=== PATIENT | male | born 1940 | race Caucasian/White ===

== ENCOUNTER 2016-11-27 17:48 | Emergency (ER) | payer MEDICARE, OTHER ==
[~2016-11-27] VITALS: Ht 175.2 cm; Wt 90.7 kg
[~2016-11-27 17:48] MED LIST: ANTIVERT25 MG PO; MOTRIN800 MG PO; ROBAXIN750 MG PO
[2016-11-27 18:31] LABS: BASO % 0.2 % (0.0-1.0); EOS # 0.2 10*3/uL (0.0-0.4); HEMATOCRIT 37.2 % (42.0-52.0); HEMOGLOBIN 12.4 g/dl (14.0-18.0); LYMPH # 2.4 10*3/uL (1.3-4.4); LYMPH % 45.2 % (27.0-41.0); MEAN CELL VOLUME 92.3 fl (80.0-94.0); MEAN CORPUSCULAR HGB 30.8 pg (27.0-31.0); MEAN CORPUSCULAR HGB CONC 33.3 g/dl (33.0-37.0); MEAN PLATELET VOLUME 10.2 fl (9.6-12.3); MONO # 0.4 10*3/uL (0.1-1.0); MONO % 7.9 % (3.0-9.0); NEUT # 2.3 10*3/uL (2.3-7.9); NEUT % 43.5 % (47.0-73.0); PLATELET COUNT AUTOMATED 142 10*3/uL (130-400); RED BLOOD COUNT 4.03 10*6/uL (4.50-5.90); RED CELL DISTRI WIDTH 13.4 % (0-14.5); WHITE BLOOD COUNT 5.3 10*3/uL (4.8-10.8)
[2016-11-27 18:49] LABS: ALBUMIN 3.3 gm/dl (3.1-4.5); ALKALINE PHOSPHATASE 88 U/L (45-117); BUN 12 mg/dl (7-24); CHLORIDE 107 mmol/L (98-107); CREATININE 1.19 mg/dL (0.70-1.30); SGOT/AST 16 IU/L (3-35); SGPT/ALT 17 U/L (12-78); SODIUM 143 mmol/L (136-145); TOTAL PROTEIN 6.3 gm/dL (6.4-8.2)
[2016-11-27 18:52] LABS: ACETAMINOPHEN (TYLENOL) < 2.0 ug/ml (10-30); ETHYL ALCOHOL < 3.0 mg/dl (<3); TROPONIN I < 0.015 ng/ml (<0.045)
[2016-11-27 19:32] LABS: BILIRUBIN NEGATIVE (NEGATIVE); BLOOD NEGATIVE (NEGATIVE); CLARITY CLEAR (CLEAR); COLOR YELLOW (YELLOW); GLUCOSE NEGATIVE (NEGATIVE); KETONE NEGATIVE (NEGATIVE); LEUKO ESTERASE NEGATIVE (NEGATIVE); NITRITE NEGATIVE (NEGATIVE); SPECIFIC GRAVITY 1.025 (1.005-1.030); UROBILINOGEN 0.2 E.U./dl (0.2-1.0)
[2016-11-27 19:41] LABS: RBC 0-2 rbc/hpf (0-2); URINE AMPHETAMINES < 1000 (1000ng/ml); URINE BARBITURATES < 200 (200ng/ml); URINE BENZODIAZEPINES < 200 (200ng/ml); URINE CANNABINOIDS (THC) < 50 (50ng/ml); URINE COCAINE < 300 (300ng/ml); URINE METHADONE < 300 (300ng/ml); URINE OPIATES < 300 (300ng/ml); WBC 0-2 wbc/hpf (0-5)
[2016-11-27 19:42] LABS: URINE PHENCYCLIDINE < 25 (25ng/ml)
== END 2016-11-27 19:56 | disposition home or self-care (01) ==
LOC: ED 17:48
PROVIDERS: Nurse Practitioner Family
DX: Z00.8 Encounter for other general examination (principal); R41.82 Altered mental status, unspecified; Z91.040 Latex allergy status

== ENCOUNTER 2016-12-08 16:55 | Emergency (ER) | payer MEDICARE, OTHER ==
[2016-12-08 17:44] LABS: BASO % 0.4 % (0.0-1.0); EOS # 0.2 10*3/uL (0.0-0.4); EOS % 2.8 % (1.0-4.0); HEMATOCRIT 36.7 % (42.0-52.0); HEMOGLOBIN 12.5 g/dl (14.0-18.0); LYMPH # 2.4 10*3/uL (1.3-4.4); LYMPH % 41.9 % (27.0-41.0); MEAN CELL VOLUME 91.1 fl (80.0-94.0); MEAN CORPUSCULAR HGB CONC 34.1 g/dl (33.0-37.0); MEAN PLATELET VOLUME 10.2 fl (9.6-12.3); MONO # 0.6 10*3/uL (0.1-1.0); MONO % 10.6 % (3.0-9.0); NEUT # 2.5 10*3/uL (2.3-7.9); NEUT % 43.9 % (47.0-73.0); PLATELET COUNT AUTOMATED 159 10*3/uL (130-400); RED BLOOD COUNT 4.03 10*6/uL (4.50-5.90); RED CELL DISTRI WIDTH 13.4 % (0-14.5); WHITE BLOOD COUNT 5.7 10*3/uL (4.8-10.8)
[2016-12-08 17:57] LABS: ALBUMIN 3.5 gm/dl (3.1-4.5); CREATININE 1.45 mg/dL (0.70-1.30); POTASSIUM 4.3 mmol/L (3.5-5.1); TOTAL PROTEIN 6.2 gm/dL (6.4-8.2)
[2016-12-08 18:05] LABS: BILIRUBIN NEGATIVE (NEGATIVE); BLOOD NEGATIVE (NEGATIVE); CLARITY CLEAR (CLEAR); COLOR YELLOW (YELLOW); GLUCOSE NEGATIVE (NEGATIVE); KETONE NEGATIVE (NEGATIVE); LEUKO ESTERASE NEGATIVE (NEGATIVE); NITRITE NEGATIVE (NEGATIVE); SPECIFIC GRAVITY >= 1.030 (1.005-1.030)
[2016-12-08 18:18] LABS: BACTERIA TRACE; WBC 0-2 wbc/hpf (0-5)
[2016-12-08] MEDS ORDERED: Meclizine25 MG PO (22:30)
[2016-12-08] MEDS ORDERED: NEURONTIN300 MG PO (22:34)
[2016-12-08] MEDS ORDERED: LEVOTHYROXINE125 MCG PO (22:36)
[2016-12-08] MEDS ORDERED: CITALOPRAM40 MG PO (22:38)
[2016-12-08] MEDS ORDERED: NEXIUM20 M1 PO (22:41)
[2016-12-08] MEDS ORDERED: COLACE100 MG PO (22:42)
[2016-12-08] MEDS ORDERED: CENTRUM SILVER1 EACH PO (22:43)
[2016-12-08] MEDS ORDERED: TOPROL XL25 MG PO (22:44)
[2016-12-08] MEDS ORDERED: MIRALAX17 GM PO (22:45)
[2016-12-08] MEDS ORDERED: SIMVASTATIN20 MG PO (22:45)
[2016-12-08] MEDS ORDERED: ZANTAC 150150 MG PO (22:46)
[2016-12-08] MEDS ORDERED: BAYER ASPIRIN C81 MG PO (22:49)
[2016-12-08] MEDS ORDERED: ARICEPT5 M1 PO (22:50)
[2016-12-08] MEDS ORDERED: MYRBETRIQ50 M1 PO (22:51)
[2016-12-08] MEDS ORDERED: RANITIDINE HCL150 M1 PO (22:52)
[2016-12-08] MEDS ORDERED: FUROSEMIDE40 MG PO (22:53)
[2016-12-08] MEDS ORDERED: ALEVE220 M1 PO (22:56)
[2016-12-08] MEDS ORDERED: TYLENOL650 MG R (22:56)
== END 2016-12-08 22:24 | disposition home health service (06) ==
LOC: ED 16:55
PROVIDERS: Emergency Medicine
DX: R44.3 Hallucinations, unspecified (principal); F03.90 Unspecified dementia, unspecified severity, without behavioral disturbance, psychotic disturbance, mood disturbance, and anxiety

== ENCOUNTER 2016-12-08 21:44 | Inpatient (IN) | payer MEDICARE, OTHER ==
[~2016-12-08] VITALS: Ht 177.8 cm; Wt 114.7 kg
--- NOTE | ~2016-12-08 | PR ---
[place], [place] PROGRESS NOTE NAME: LAYLA ZALDIVAR UNIT #: [id number] ROOM: 312 DOCTOR: FEDE HOOK MD BIRTHDATE: [birth year] DOS: 12/11/2016 CHIEF COMPLAINT: "Did I tell you why I am here, it's all a misunderstanding." SUMMARY OF THE VISIT: The patient was interviewed as he was getting out of bed. He sat at the end of his bed and did start talking to me. He seemed perplexed and confused and did not seem to remember that he told me the entire story of why he was admitted and began to tell me the entire story once again. I did interrupt him and start talking to him about the here now and he did shift his focus rather quickly. He reports that he slept well and is feeling well and denies any issues other than wanting to be discharged today and return home with his . MENTAL STATUS: He is alert and oriented to person, place and only approximate to time. Mood seems relatively euthymic. Affect is appropriate. His responses tended to be short and simple. At times he deflected specific answer with humor. He does tend to confabulate. Short term memory remains poor and he at times has significant word finding difficulty and he processes the information rather slowly. PLAN: I will go ahead at this point in time and start augmenting the Exelon patch with Namenda. I will start Namenda at 5 mg a day, targeting 20 mg a day as my final dose. I will continue to engage him in individual and osuna milieu activity. We will discuss with social service agency director what options we have regarding placement and determine whether or not the feels that she can take him back home or if we need to explore possible placement into a long-term care facility or assisted living. FEDE HOOK MD CM:PNTRANS [phone] FEDE HOOK MD 12/11/16 1135 interface
--- NOTE | ~2016-12-08 | CON ---
[place], [place] REPORT OF CONSULTATION NAME: LAYLA ZALDIVAR UNIT #: [id number] ROOM: 312 DOCTOR: BEV STINSON ED.D (NATALI) BIRTHDATE: [birth year] DOS: 12/10/2016 HISTORY OF PRESENT ILLNESS: The patient is a 76-year-old male referred by Dr. Hook for competency evaluation. At the present time, this patient is on the [facility] Unit at [facility]. He is and his was present during the interview. This patient and his , between the two of them, have 8 children. He is a retired insurance underwriter. His family physician is Dr. Pizano and his medical history is pertinent for depression and dementia. His medications include Depakote, Neurontin, Antivert, Colace, metoprolol, Zocor, Exelon patch, and Synthroid. This patient denies any significant substance abuse issues. He was awake, alert and oriented to person only. He could not tell me where he was and he did not know the date. He was pleasantly confused throughout the interview. He had difficulty with most questions I asked him; however, he did not know that [place] is the president at this time. Otherwise, he had a great deal of difficulty communicating. Apparently, his cognitive status has been declining for quite some time and it is clear that he is not competent to make informed healthcare decisions and his , who is his healthcare power of family law attorney, should make all his decisions. DIAGNOSES: 1. Major depressive disorder, recurrent. 2. Mild neurocognitive disorder--Alzheimer's disease. RECOMMENDATIONS: All decisions should be made by his healthcare power of family law attorney who is his . Thank you very much for this consult. BEV STINSON ED.D CM:CONSTR:REPORT OF CONSULTATION 1711 12/11/16 0103 interface FEDE HOOK MD
--- NOTE | ~2016-12-08 | PR ---
[place], [place] PROGRESS NOTE NAME: LAYLA ZALDIVAR UNIT #: [id number] ROOM: 312 DOCTOR: FEDE HOOK MD BIRTHDATE: [birth year] DOS: 12/13/2016 CHIEF COMPLAINT: "My feet are ices cubes. I have no heat in my room." SUMMARY OF THE VISIT: The patient was interviewed as he sat at the dining table with multiple peers. He engaged readily in conversation, reporting to me that he is anxious to return home to his . He was fairly bright and pleasant and engaged readily in conversation. Much of it focused on his room being so cold and that he even asked for blankets and even this did not help. I did talk to him about staying one more day, so that we can further adjust his medications with the ultimate plan to return home and he nodded in agreement. He does report to me that his is visiting on a daily basis and states that the visits are going well. Nurses report no major behaviors with him and that he has been fairly compliant and pleasant and redirects. He continues to use ____ memory deficits. MENTAL STATUS: He is alert and oriented with some time gaps. Mood does seem to be fairly euthymic. Affect appropriate. There are no symptoms of hypomania or sylvester. There are no auditory or visual hallucinations. No delusions, no paranoia. At times, he does have word finding difficulty and some processing issues and short term memory has gaps. PLAN: I will go ahead and maintain Exelon patch at 9.5 mg a day, but increase Namenda from 5 mg daily to 5 mg b.i.d. to further augment the effectiveness of the cholinesterase inhibitor. Valproic acid level is barely subtherapeutic at ____. I see no side effects and I see no reason at this point in time to adjust his Depakote further as it does seem to be effective at this dose. We will continue to support and monitor, engage in individual and osuna milieu activity with the ultimate plan to return home with his when psychiatrically stable. FEDE HOOK MD CM:PNTRANS [id number] FEDE HOOK MD 12/13/16 1041 interface
--- NOTE | ~2016-12-08 | PR ---
[place], [place] PROGRESS NOTE NAME: LAYLA ZALDIVAR UNIT #: [id number] ROOM: 312 DOCTOR: FEDE HOOK MD BIRTHDATE: [birth year] DOS: 12/10/2016 CHIEF COMPLAINT: "My thinks I need to be locked up in the loony bin." SUMMARY OF THE VISIT: The patient was interviewed in the group therapy room. He recounted the story on how he came to be here and was totally perplexed and bewildered how this came to be. He is convinced that there were people attempting to take his car; a woman that looked like his , but was not his was in his house later when he left and returned, he stated that there was a whole bunch of people in his house. He was also convinced that his is coming today to talk to me and he plans to leave with her. He does tend to use humor a lot and confabulates to fill in gaps. MENTAL STATUS: He is alert and oriented to person, place, but not time. Mood does seem to be somewhat labile at times, but he redirects. There are no auditory or visual hallucinations. No delusions, no paranoia. Short term memory is very poor. PLAN: I will go ahead and increase his Exelon patch from 4.6 to 9.5 mg a day. I will plan to augment this ultimately with Namenda to try to get maximum benefit. I will put a consult in to Dr. Quinton Sultana, psychologist, regarding competency and we will have to discuss this with treatment team and social worker clinical to see if the wants to proceed with some type of placement given the fact that he was found wandering around his house and neighborhood; he could be representing a substantial safety risk. FEDE HOOK MD CM:PNTRANS [phone] FEDE HOOK MD 12/10/16 235 interface
--- NOTE | ~2016-12-08 | PR ---
[place], [place] PROGRESS NOTE NAME: LAYLA ZALDIVAR UNIT #: [id number] ROOM: 312 DOCTOR: FEDE HOOK MD BIRTHDATE: [birth year] DOS: 12/12/2016 CHIEF COMPLAINT: "Hey, do I get to go home soon." SUMMARY OF THE VISIT: The patient was interviewed after he had finished breakfast and was walking down the todd to his room. He engaged readily in conversation. He was fairly bright and pleasant. He continues to use humor to fill in the gaps and he does confabulate. He is, however, pleasant and redirectable. Dr. Sultana's consult was noted and Dr. Sultana feels that he is presently exhibiting enough cognitive decline that he can no longer make informed decisions himself. MENTAL STATUS: He is alert and oriented to person, place, but not necessarily time. Mood does seem to be fairly euthymic. Affect appropriate. There are no symptoms of hypomania or sylvester. There are no overt auditory or visual hallucinations. No delusions or paranoia were voiced. He does have significant processing difficulties as well as significant word finding problems. Short term memory has significant gaps. PLAN: His valproic acid level is slightly out of therapeutic range at 43.9; however, he is tolerating it well and it does seem to have stabilized his mood. Nurses do report that he has complained of some upset stomach which could be because of the rapid titration in the Exelon patch. At this point, I will maintain Exelon patch at 9.5 mg daily as well as maintaining Namenda at 5 mg a day. We will discuss with his options that she must take to make the house safe for his ultimate return there. We will continue to engage him in individual and osuna milieu activity with the ultimate plan to discharge to the least restrictive environment when psychiatrically stable. FEDE HOOK MD CM:PNTRANS [id number] FEDE HOOK MD 12/12/16 1510 interface
--- NOTE | ~2016-12-08 | DS ---
[place], [place] DISCHARGE SUMMARY NAME: LAYLA ZALDIVAR UNIT #: [id number] ROOM: 312 DOCTOR: FEDE HOOK MD BIRTHDATE: [birth year] DOS: 12/14/2016 CHIEF COMPLAINT: "I am doing just fine I do not need to be in the loony bin, do you." HISTORY OF PRESENT ILLNESS: This is a 76-year-old male who was brought to the Emergency Room at [facility] by EMS due to increased confusion and combative behavior at home. The patient had been seeing people in his home that were not there. He became increasingly agitated and aggressive and was making threats to his family. His was fearful of her safety and did call EMS who brought him subsequently to the Emergency Room for evaluation. He had been to the Emergency Room earlier in the month for similar behavior. At that time, though the did not want him admitted, but at this point, felt that his behavior has been continuing to decompensate and escalate and felt that he needed to be evaluated for his worsening confusion and agitation. He is admitted now to rule out organic factors, to stabilize on medication and then to determine the least restrictive environment to which he should be discharged to. PAST MEDICAL HISTORY: Remarkable for hypertension, GERD, hypothyroidism, neuropathy, prostate cancer, urge incontinence and dementia. SUMMARY OF HOSPITAL COURSE: The patient was admitted to the unit where he was found to be grossly confused, but pleasant. Because of his cognitive decline he was started on Exelon patch 4.6 mg a day and the dose was gradually increased during his stay to a maximum of 9.5 mg daily. He tolerated the Exelon well without any apparent side effects. Toward the latter part of his stay, Namenda 5 mg a day was added and it was brought up to a dose of 5 mg twice a day without any side effects. This was utilized to augment the effectiveness of the Exelon because he had some significant agitation while at home, he was started on Depakote 250 mg twice daily and 500 mg at nighttime. This did seem to impact positively on his mood lability. Nurses noted that he had periods of increased confusion and needed to be redirected; however, he had no physical aggression or agitation since the initiation of the Depakote. A Depakote level obtained on December 12 was low, but relatively close to therapeutic at 43.9. He tolerated the combination of the Depakote, the Exelon patch and the Namenda well. His strongly voiced an opinion that she did want him home at this point in time and efforts were made to educate her as to what measures she needed to undertake in order to make it a safe environment for him upon his return home. He had improved sufficiently by December 14 to return home. He was tolerating the medication regimen well without any apparent side effects. MENTAL STATUS AT DISCHARGE: The patient is alert and oriented to person, place, and approximate to time. He did have significant time gaps and he tends to use humor and confabulation to cover up his cognitive loss. He was pleasant and bright however, and exhibited no agitation or aggression. There is no hypomania or sylvester. There were no overt auditory or visual hallucinations. Short term memory had gaps, otherwise he was intact. FINAL DIAGNOSES: Impulse control disorder, not otherwise specified, and Alzheimer's dementia. [place], [place] DISCHARGE SUMMARY NAME: LAYLA ZALDIVAR UNIT #: [id number] ROOM: 312 DOCTOR: FEDE HOOK MD BIRTHDATE: [birth year] PLAN: All of his prescriptions have been e-scribed to [facility]. He will be followed up in our office post-discharge. FEDE HOOK MD CM:ESVIN [id number] FEDE HOOK MD 12/14/16 1001 interface
[2016-12-08 21:59] VITALS: BP 119/69
--- NOTE | 2016-12-08 22:00 | NUR ---
ZENLAYLA a 76 year old M admitted via wheel chair from the EMERGENCY ROOM as a emergency 72 hr. hold admission. Arrived on unit at 2200. ALLERGIES: ROBAXIN. Vital signs are: 97.6-60-17 119/69. The client DID NOT SIGN THE FOLLOWING FORM DUE TO PINK SLIP AND LIMITED COGNITION signed the following forms with stated understanding: Authorization For The Release of Medical Information, Clothing List, Consent to Voluntary Admission and Hospitalization, Consent and Release Forms/Receipt of Rights, Acknowledgement of Advance Directive Information, Behavioral Health Consent Form, and Informed Consent of Medications. Admitted under the services of Dr. MONSTER MCNAMARA,[facility]. A search was conducted and hazardous articles were removed. Client was oriented to the unit. MARK CHA CLIENT ESCORTED TO UNIT VIA WHEEL CHAIR WITH ASSISTANCE OF [facility] NURSE AND SECURITY
[2016-12-08] MEDS ORDERED: Meclizine25 MG PO (22:30)
[2016-12-08] MEDS ORDERED: NEURONTIN300 MG PO (22:34)
[2016-12-08] MEDS ORDERED: LEVOTHYROXINE125 MCG PO (22:36)
[2016-12-08] MEDS ORDERED: CITALOPRAM40 MG PO (22:38)
[2016-12-08] MEDS ORDERED: NEXIUM20 M1 PO (22:41)
[2016-12-08] MEDS ORDERED: COLACE100 MG PO (22:42)
[2016-12-08] MEDS ORDERED: CENTRUM SILVER1 EACH PO (22:43)
[2016-12-08] MEDS ORDERED: TOPROL XL25 MG PO (22:44)
[2016-12-08] MEDS ORDERED: SIMVASTATIN20 MG PO (22:45)
[2016-12-08] MEDS ORDERED: MIRALAX17 GM PO (22:45)
[2016-12-08] MEDS ORDERED: ZANTAC 150150 MG PO (22:46)
[2016-12-08] MEDS ORDERED: BAYER ASPIRIN C81 MG PO (22:49)
[2016-12-08] MEDS ORDERED: ARICEPT5 M1 PO (22:50)
[2016-12-08] MEDS ORDERED: MYRBETRIQ50 M1 PO (22:51)
[2016-12-08] MEDS ORDERED: RANITIDINE HCL150 M1 PO (22:52)
[2016-12-08] MEDS ORDERED: FUROSEMIDE40 MG PO (22:53)
[2016-12-08] MEDS ORDERED: ALEVE220 M1 PO (22:56)
[2016-12-08] MEDS ORDERED: TYLENOL650 MG R (22:56)
--- NOTE | 2016-12-08 23:35 | NUR ---
DR. OLEARY MADE AWARE OF CONSULT FOR MEDICAL MANAGMENT INSTRUCTED TO PLACE CONSULT UNDER GERRI SIMMS. MED REC COMPLETE AND MEDICAL HX COMPLETED
--- NOTE | 2016-12-09 06:55 | NUR ---
PT SLEPT WITH ONLY INTURRUPTION FOR HYGIENE CARE. ALERT TO PERSON ONLY. LOUD SPEECH YELLING OUT "HO HO HO!!" WHEN ASKED IF HE KNEW WHERE HE IS HE STATES " [place]" NON SENSICLE SPEECH, FOI. SLEPT 5 HOURS
[2016-12-09 06:58] LABS: CHOLESTEROL 120 mg/dL (<200); HDL CHOLESTEROL 55 mg/dl (40-60); LDL CHOLESTEROL 53 mg/dL (9-159); TRIGLYCERIDES 59 mg/dl (<150); VLDL CHOLESTEROL 12 mg/dL (6-40)
[2016-12-09 07:19] LABS: VITAMIN D, 25-HYDROXY 36.9 ng/mL (30-100)
[2016-12-09 08:07] VITALS: BP 151/80
--- NOTE | 2016-12-09 09:18 | NUR ---
DR. JACI SR IN RT AC
--- NOTE | 2016-12-09 09:19 | NUR ---
DR MADRID UP TO SEE PATIENT
--- NOTE | 2016-12-09 09:58 | NUR ---
haresh wray'ara
[2016-12-09 10:00] LABS: BASO % 0.2 % (0.0-1.0); EOS # 0.2 10*3/uL (0.0-0.4); EOS % 3.8 % (1.0-4.0); HEMATOCRIT 34.7 % (42.0-52.0); HEMOGLOBIN 11.7 g/dl (14.0-18.0); LYMPH # 2.1 10*3/uL (1.3-4.4); LYMPH % 42.9 % (27.0-41.0); MEAN CORPUSCULAR HGB CONC 33.7 g/dl (33.0-37.0); MEAN PLATELET VOLUME 11.2 fl (9.6-12.3); MONO # 0.6 10*3/uL (0.1-1.0); MONO % 11.4 % (3.0-9.0); NEUT # 2.1 10*3/uL (2.3-7.9); NEUT % 41.5 % (47.0-73.0); PLATELET COUNT AUTOMATED 138 10*3/uL (130-400); RED BLOOD COUNT 3.77 10*6/uL (4.50-5.90); RED CELL DISTRI WIDTH 13.5 % (0-14.5)
[2016-12-09 10:11] LABS: ALKALINE PHOSPHATASE 78 U/L (45-117); BUN 15 mg/dl (7-24); CHLORIDE 109 mmol/L (98-107); POTASSIUM 4.3 mmol/L (3.5-5.1); SGOT/AST 14 IU/L (3-35); SGPT/ALT 17 U/L (12-78); SODIUM 145 mmol/L (136-145); TOTAL PROTEIN 5.7 gm/dL (6.4-8.2)
[2016-12-09 21:16] VITALS: BP 144/76
--- NOTE | 2016-12-09 23:07 | NUR ---
24 HR chart check completed.
--- NOTE | 2016-12-10 06:12 | NUR ---
PT HAS BEEN OBSERVED ON Q 15 MIN CHECKS & HAS SLEPT QUIETLY THROUGHOUT THE SHIFT PAST 2129.
[2016-12-10 09:38] VITALS: BP 148/79
--- NOTE | 2016-12-10 10:31 | NUR ---
'S OFFICE NOTIFIFED OF COMPETNACY EVAL NEEDED.
--- NOTE | 2016-12-10 13:47 | NUR ---
Socializing This is saturday with new patients. I like to talk with them to find out about them such as their like, dislikes,pets or children etc.. This patient did attend group this morning as well as participated. Patient likes to joke and has a sense of humor. patient tend to "joke" constantly rarely being serious
--- NOTE | 2016-12-10 15:59 | NUR ---
MARIA ISABEL completed psychosocial assessment with Vi and Pt. Vi wants Pt to return home with her. Vi may be interested in some services at home. Pt will follow up with Dr. Pizano [facility].
[2016-12-10 20:00] VITALS: BP 123/64
--- NOTE | 2016-12-10 23:22 | NUR ---
MEDICATION COMPLIANT. REFUSED SOCIALIZATION , INTERACTION AND SNACK. WAS VERY UPSET WITH MALE PEER THAT CONTINUALLY YELLED OUT. HE THREATENED TO GO "PUNCH HIM IN THE MOUTH TO SHUT HIM UP" REDIRECTED CLIENT THAT IT WAS NOT APPROPRIATE TO SAY THAT AND THAT WE ARE TRYING TO KEEP CLIENT QUIET. EMOTIONAL SUPPORT PROVIDED
--- NOTE | 2016-12-11 04:01 | NUR ---
24 HR chart check completed.
--- NOTE | 2016-12-11 04:26 | NUR ---
B:AGGRESSION I: THERAPEUTIC COMMUNICATION, 1:1 R: I'M NOT UPSET RIGHT NOW P: MEDICATION COMPLIANCE, PARTICIPATE IN GROUP, IDENTIFY COPING SKILLS FOR AGGRESSIVE BEHAVIOR
--- NOTE | 2016-12-11 07:58 | NUR ---
BINGO A social game everyone enjoys while they laugh joke and use their sana to think and focus. Patient did attend group as well as participated. Patient is very humorous,constantly joking with staff as well as other patients. Patient was appropriate in his joking.
[2016-12-11 08:49] VITALS: BP 145/83
--- NOTE | 2016-12-11 09:32 | NUR ---
PATIENT ATE 100% OF BREAKFAST. MEDICATION COMPLIANT WITHOUT DIFFICULTY WITH AM MEDS. BIZARRE BEHAVIORS NOTED WHILE WAITING FOR BREAKFAST. PT MAKING BIZARRE NOISES AND ASKING INAPPROPRIATE QUESTIONS TO FEMALE STAFF. RE-ORIENTED AND BOUNDRIES SET WITH MINIMAL EFFECT FOR SHORT PERIOD OF TIME. PT IS CONFUSED WITH ST/LT MEMORY DEFICITS. UNABLE TO VERBALIZE WHAT YEAR IT IS, WHERE HE IS, OR WHAT BROUGHT HIM TO THE HOSPITAL. WORD FINDING DIFFICULTY OBSERVED DURING INTERACTIONS WITH PATIENT.
--- NOTE | 2016-12-11 13:30 | NUR ---
/POA IN AT THIS TIME AND SIGNED ALL ADMISSION PAPERWORK INCLUDING VOLUNTARY ADMISSION.
--- NOTE | 2016-12-11 16:19 | NUR ---
DR. PEÑA AND DR. VIGIL ON UNIT TO SEE PT AT THIS TIME. MADE AWARE PT RECENTLY MEDICATED WITH PRN MAALOX FOR C/O ACID REFLUX WITH POSITIVE EFFECT.
--- NOTE | 2016-12-11 16:38 | NUR ---
Exercise/Trivia-morning group Bingo-Afternoon grou Morning group helps with keeping the patient active and joints mobile/trivia helps patient socializing, thinking,and focusing Afternoon group of BINGO helps with socializing, thinking,focusing and self esteem This patient did attend groups as well as participated but patient did say a few inapropriate things during group and had to be reminded that patients can not say inappropriate things and if he did not stop he would be leaving the room. patient acted as if i was joking a few times but stopeed being inappropriate by falling asleep. Patient did attend afternoon group and did speak loudly but never inappropriatly. Patient encouraged other patients and voiced excitment for a BINGO but then realized he didnt get itand was very apologetic for "messing up"
--- NOTE | 2016-12-11 18:13 | NUR ---
Liz brought in the Living Will for SW to copy. Copy on the chart.
--- NOTE | 2016-12-11 18:45 | NUR ---
PATIENT IS ALERT AND ORIENTED TO SELF ONLY. PLEASANTLY CONFUSED WITH PERIODS OF ACUTE CONFUSION NOTED THIS SHIFT. ST/LT MEMORY GAPS PRESENT. NO HALLUCINATIONS OR DELUSIONS NOTED. NO ELOPEMENT ATTEMPTS MADE. NO COMBATIVE BEHAVIORS NOTED. PATIENT HAS BEEN OBSERVED WITH BIZARRE BEHAVIORS NOTED THROUGHOUT THE DAY. INAPPROPRIATE WITH STAFF WITH PERSON INFORMATION. WORD FINDING DIFFICULTY PRESENT, PT TENDS TO TRY AND COVER UP HIS CONFUSION WITH JOKING. REORIENTED FREQUENTLY THROUGHOUT THE DAY, MINIMALLY TO MODERATELY EFFECTIVE FOR SHORT PERIODS OF TIME. HAS BEEN OBSERVED MAKING BIZARRE NOISES AND VOICES IN THE DAY ROOM, UNABLE TO TELL IF HE IS TRYING TO "JOKE" WITH HIS PEERS. OTHERWISE, PT HAS BEEN CALM AND COOPERATIVE, ATTENDING AND PARTICIPATING IN GROUP THERAPY. MODERATE INTERACTIONS WITH PEERS, SOME APPROPRIATE CONVERSATIONS NOTED. MEDICATION COMPLIANT WITHOUT DIFFICULTY. REQUIRES PROMPTING AND QUEING FOR ADLS AND SHOWERING. PT TOOK A SHOWER THIS SHIFT AND SHAVED WITH ASSIST OF MALE STAFF. APPETITE GOOD FOR MEALS. TAKING FLUIDS WELL. HAS BEEN TO ALL VISITING HOURS THIS SHIFT FOR PLEASANT AND SUPPORTIVE VISITS. AMBULATES INDEPENDENTLY WITH SLOW AND STEADY GAIT. CONTINENT OF B&B WITH BATHROOM PRIVILEGES.
[2016-12-11 20:59] VITALS: BP 150/79
--- NOTE | 2016-12-11 21:20 | NUR ---
PATIENT UPSET WHEN THIS NURSE WENT INTO ROOM ABOUT INCONTINENCE EPISODE IN THE BATHROOM. PATIENT CLEANED UP AND LINEN ADDED WITH LAUNDRY. PATIENT REPEATING THAT HE FELT LIKE A [age] YEAR OLD. THIS NURSE ABLE TO REDIRECT PATIENT AND SIT WITH HIM 1:1. PATIENT ABLE TO LAY IN BED AND REST AT THIS TIME
--- NOTE | 2016-12-12 02:29 | NUR ---
24 HR chart check completed.
--- NOTE | 2016-12-12 05:22 | NUR ---
B: ANXIETY I: THERAPEUTIC COMMUNICATION, 1:1 R: I HOPE I DO NOT GO ON MYSELF AGAIN, I FEEL LIKE A 1 YEAR OLD P: MEDICATION COMPLIANCE, IDENTIFY COPING SKILLS TO DECREASE ANXIETY, PARTICIPATE IN GROUP ACTIVITIES
--- NOTE | 2016-12-12 05:45 | NUR ---
Q 15 MINUTE CHECKS MAINTAINED. PATIENT SLEPT > 7 HOURS THIS SHIFT
[2016-12-12 08:16] VITALS: BP 138/68
--- NOTE | 2016-12-12 15:16 | NUR ---
PT C/O HEADACHE, PT GIVEN TYLENOL 650 MG PO PRN.
--- NOTE | 2016-12-12 15:30 | NUR ---
PT ALERT TO PERSON. PT MED COMPLIANT WITHOUT DIFFICULTY, MED EDUCATION PROVIDED. PT EXHIBITS SHORT TERM/GLUTEN SETTLING TENDER MEMORY DEFICITS. PT MOOD IS DEPRESSED, PT ISOALTIVE TO ROOM AT TIMES. PT GOAL DIRECTED TOWARDS GOING HOME, STATING "THIS IS NOT MY HOME, I JUST WANT TO GET OUT OF HERE, I DON'T WANT TO BE HERE FOREVER." EDUCATED PT ON DISCHARGE PROCESS. PT ENCOURAGED TO PARTICIPATE IN GROUPS/ACTIVITIES. PT DENIES ANY HALLUCINATIONS OR DELUSIONS, NO OVERT S/S NOTED. PT ENCOURAGED TO VOICE ANY HALLUCINATIONS TO STAFF. PT DENIES ANY HOMICIDAL/SUICIDAL THOUGHTS. PT AMBULATORY THROUGOUT UNIT, GAIT STEADY. PT CONTINENT OF BOWEL AND BLADDER. PLAN IS TO ENCOURAGE PT TO PARTICIPATE IN GROUPS/ACTIVITIES, ENCOURAGE PT TO VOICE ANY HALLUCINATIONS OR DELUSIONS TO STAFF.
--- NOTE | 2016-12-12 16:00 | NUR ---
NO FURTHER C/O HEADACHE NOTED.
[2016-12-12] MEDS ORDERED: ELOCON 0.1% CRE15 GM T (18:14)
--- NOTE | 2016-12-12 18:18 | NUR ---
CONTACTED AT [phone] REGARDING PT BRINGING IN MEDICATION FROM HOME FOR REDDENED AREAS ON PTS FACE. PER UPDATE MED REC AND HE WILL TAKE A LOOK AT IT.
[2016-12-12 20:11] VITALS: BP 118/67
--- NOTE | 2016-12-12 22:00 | NUR ---
DAUGHTER, JOCELYN CALLED FROM [place]. PATIENT HUGGING NURSING STAFF AFTER CONVERSATION WITH DAUGHTER AND APPRECIATIVE OF CARE HE IS RECEIVING. PATIENT SEEKING TO FIND WORDS TO HAVE A CONVERSATION AND CONTINUES TO COVER UP CONFUSION WITH HUMOR. MEDICATION COMPLIANT.
--- NOTE | 2016-12-13 03:02 | NUR ---
B: DEPRESSION I: THERAPEUTIC COMMUNICATION, 1:1 R: I JUST DON'T WANT TO COME OUT OF MY ROOM RIGHT NOW. I WANT TO GO HOME SOON P: MEDICATION COMPLIANCE, COPING SKILLS TO DECREASE DEPRESSIVE EPISODES, PARTICIPATE IN GROUP ACTIVITIES
--- NOTE | 2016-12-13 05:17 | NUR ---
24 HR chart check completed.
--- NOTE | 2016-12-13 05:53 | NUR ---
Q 15 MINUTE SAFETY CHECKS MAINTAINED. SLEPT >8 HRS THROUGHOUT SHIFT
--- NOTE | 2016-12-13 07:52 | NUR ---
Exercise/Letter to yourself-morning group. Helps with self esteem,coping skills creativity while decorating card and focusing. BINGO-Afternoon group.Helps with socializing,self esteem, focusing and team work. Patient was in attendence for the exercise portion of group and did very well focusing and following direction but often would speak out joking about the exercise and would be asked to not do this and patient would comply. Patient did not stay for the letter writting portion of group insisting he had a very bad headache and needed to lay down. Patient did attend afternoon BINGO group and did very well today focusing and staying on task. about half way through group patient stated he needed to use the bathroom and stated he would be back when asked by this staff member. Patient requested another patient watch his card,2 patients complied. This patient did not return to group
[2016-12-13 07:55] VITALS: BP 138/86
--- NOTE | 2016-12-13 10:42 | NUR ---
PT IS ALERT AND ORIENTED TO PERSON ONLY, APPEARS TO BE CONFUSED IN ALL OTHER AREAS, PT DEFLECTS ORIENTATION TYPE QUESTIONS WITH HUMOR AN APPARENT ATTEMPT TO COVER HIS STATE OF CONFUSION. WHEN ASKED WHERE HE WAS BY THIS NURSE, PT STATES "WELL, I BELIEVE [place]" FOLLOWED BY LAUGHTER. ST/LT MEMORY GAPS NOTED. RESPIRATIONS EASY ON ROOM AIR. MOOD IS STABLE, AFFECT IS BROAD RANGE, ANIMATED AT TIMES. SPEECH IS WNL AND COHERENT, SOME WORD FINDING DIFFICULTY NOTED AT TIMES, BUT ABLE TO MAKE NEEDS KNOWN TO STAFF. PT DENIES HALLUCINATIONS, NO RESPONSE TO INTERNAL STIMULI NOTED. PT DENIES SI/HI. NO PARANOIA/DELUSIONS NOTED. MEDICATION COMPLIANT WITHOUT DIFFICULTY. AMBULATORY WITH STEADY GAIT, FALL PRECAUTIONS MAINTAINED, STAFF REMINDED PT TO ASK FOR ASSISTANCE WHEN NEEDED FOR TRANSFERS/TOLIETING. BED ALARM ACTIVATED AND AUDIBLE. PT ISOLATIVE TO ROOM THIS AM. INDEPENDENT WITH ADLS WITH STAFF STANDBY FOR SAFETY. CONTINENT OF BOWEL AND BLADDER. DISPLAYS GOOD APPETITE WITH ADEQUATE FLUID INTAKE. NO DISTRESS NOTED. Q15 MIN SAFETY CHECKS MAINTAINED, REFER TO [facility] FLOWSHEET FOR SPECIFIC MONITORING.
--- NOTE | 2016-12-13 10:53 | NUR ---
PHYSICAL THERAPY PAtient in group at this time. Thank you for this referral. Mahsa Person,PT
--- NOTE | 2016-12-13 10:58 | NUR ---
Occupational Therapy evaluation completed this date on 3 with full eval to follow. Precautions include 3N, bed alarm,impaired cognition; needing frequent repetition and odd sense of humor, low complexity level 89401. Recommend no further OT at this time and home with 24 hr supervision and occasional assist. Thank you for this referral. Jennifer Houser OTR/L
--- NOTE | 2016-12-13 11:13 | NUR ---
Occupational Therapy evaluation completed this date on with full eval to follow. Precautions include bed alarm, 3N-pink slipped, impaired cognition including disorientation to time, place and need for frequent repetition to follow simple commands, low complexity level [id number]. Recommend home with 24 hr supervision and occasional min assist. No further OT indicated at this time. If 24 hr not available then recommend halfway placement. Thank you for this referral. Jennifer Houser OTR/l
--- NOTE | 2016-12-13 11:15 | NUR ---
PHYSICAL THERAPY PAtient evaluated on 3, full evaluation to follow. Continue with PT as per plan of care with fall and decreased safety awareness precautions. PAtient is moderate complexity via chart review, tests and evaluation: [id number]. Home with as prior 15/10 and home health RN and PT prn. Thank you for this referral. Mahsa Person,PT
--- NOTE | 2016-12-13 16:51 | NUR ---
SHIFT CHART CHECK COMPLETED.
[2016-12-13 19:40] VITALS: BP 135/73
--- NOTE | 2016-12-13 21:14 | NUR ---
LOTION APPLIED TO FACE PER ORDERS
--- NOTE | 2016-12-13 23:00 | NUR ---
RESTING BETTER SINCE BEING GIVEN MYLANTA FOR UPSET STOMACH. CLIENT HAD COME TO DESK AT 2200 FEELING NAUSEATED. MYLANTA GIVEN BY Niurka HER RN.
--- NOTE | 2016-12-14 05:21 | NUR ---
MYLANTA EFFECTIVE FOR NAUSEA. NO CHANGE IN REDNESS ON FACE AFTER 1ST DOSE OF LOTION. SLEPT WELL PAST 11PM. NOISY PEER DISRUPTED HIS SLEEP EARLIER. P- PSYCHOSIS I- LEARN NEW COPING SKILLS, TEACH IMPORTANCE OF MEDICATION P- NO HALLUCINATIONS, USE NEW COPING SKILLS LEARNED. MEDICATION COMPLIANT 24 HR chart check completed.
[2016-12-14 07:58] VITALS: BP 117/71
--- NOTE | 2016-12-14 08:02 | NUR ---
PHYSICAL THERAPY Maury seen this AM 1:1 and having decreased safety awareness and just talking out this AM visit. With much verbal cueing for everything. Transfer sit/stand, standing balance MOD A X 1. Followed by gait total 210' X 1, stop/start gait, using the todd handrail and MOD CELL ROOM OPERATOR X 1, cueing for gait safety and Pt's turns. Pt back up in the day room for his breakfast, treatment time 17 min. LEAH HENRY FUNDRAISING COORDINATOR.
--- NOTE | 2016-12-14 08:07 | NUR ---
Seasons/Reminiscing-Afternoon (12/13/16) This group will help parients with memory, thinking, concentration, and socializing This patient continues to refuse to come to group. Patient encouraged x2 to join but refuses. Patient wanted to sleep. Reminded Patient of the benefits of coming to groups but patient still refused
--- NOTE | 2016-12-14 08:35 | NUR ---
TREATMENT TEAM WAS HELD WITH THE FOLLOWING: DR. HOOK, AT, RBN, SW. PT BEING DISCHARGED HOME TODAY WITH . REFERRAL FOR INHOME SERVICES.
[2016-12-14] MEDS ORDERED: DIVALPROEX SOD125 M1 PO ×2 (08:39)
[2016-12-14] MEDS ORDERED: NAMENDA-5 PO (08:39)
[2016-12-14] MEDS ORDERED: RIVASTIGMINE1 EAC1 T (08:39)
--- NOTE | 2016-12-14 08:55 | NUR ---
NOTIFIFED OF PT DISCHARGE AT 12PM. NO FURTHER ORDERS AT THIS TIME.
--- NOTE | 2016-12-14 11:05 | NUR ---
NOTIFIFED OF PT DISCHARGE SCHEDULED FOR 12PM.
--- NOTE | 2016-12-14 11:06 | NUR ---
NOTIFIED OF PT DISCHARGE SCHEDULED FOR 12 PM. NO FURTHER ORDERS AT THIS TIME.
--- NOTE | 2016-12-14 11:37 | NUR ---
PT ALERT TO PERSON AND PLACE. PT MED COMPLIANT WITHOUT DIFFICULTY. PT MOOD IS STABLE BUT PT CAN BECOME ANGRY/IRRITABLE WITH OTHER PTS AT TIMES. NO COMBATIVE OR AGGRESSIVE BEHAVIORS NOTED. PT IS GOAL DIRECTED AND PRE-OCCUPIED WITH DISCHARGE. NO HALLUCINATIONS OR DELUSIONS NOTED AT THIS TIME. PT DENIES ANY HOMICIDAL/SUICIDAL THOUGHTS. PT AMBULATORY THROUGHOUT UNIT, GAIT OCCASIONALLY UNSTEADY, FALL PRECAUTIONS IN PLACE PER PROTOCOL. PT CONTINENT OF BOWEL AND BLADDER, WITH EPISODES OF INCONTINENCE NOTED, CARE PROVIDED NEEDED. PLAN IS CONTINUE TO MONITOR PT BEAHVIORS ON Q15 MIN SAFETY CHECKS.
--- NOTE | 2016-12-14 13:04 | NUR ---
Exercise/Independent Activity Exercise helps patients with keeping actuive,circulation and joints mobile. Independent Activity helps with making choices, 1:1 with staff member, memory,concentration Patient did attend group this morning as well as exercised.Patient followed direction and focused.I asked Patient if a memory game would be ok as an activity. Patient stated he couldnt even remember his own name. I encouraged Patient to try. Choose 5 matches for patient. Patient remembered occasionally where the matches were and sometimes he would "drift off" and need to be redirected back to game. Patient did well during the first game, he did not remember well during the 2nd game,he seemed to be struggling to remember
--- NOTE | 2016-12-14 13:05 | NUR ---
PT DISCHARGED TO HOME VIA 'S PRIVATE CAR.
--- NOTE | 2016-12-14 16:15 | NUR ---
MARIA ISABEL SCHEDULE SCHEDULED FOLLOW UP APPOINTMENTS WITH THE [facility] AND DR. HERNANDEZ. SEE DISCHARGE INSTRUCTIONS.
--- NOTE | 2016-12-14 16:22 | NUR ---
Sw reviewed discharge paperwork with and Pt. copy was given to . Pt discharged home. information was provided for [facility] and referral was made for an assessment for services.
--- NOTE | 2016-12-17 07:59 | NUR ---
PHYSICAL THERAPY CO-SIGN I approve of the Phyical Therapy notes written above. BOAZ FERRER PT
== END 2016-12-14 13:00 | disposition home or self-care (01) | DRG 56 ==
LOC: 3N 21:44
PROVIDERS: Registered Nurse; Student in an Organized Health Care Education/Training Program; ADMIT Psychiatry & Neurology Psychiatry
DX: G30.9 Alzheimer's disease, unspecified (principal); N17.0 Acute kidney failure with tubular necrosis; F02.81 Dementia in other diseases classified elsewhere, unspecified severity, with behavioral disturbance; F23 Brief psychotic disorder; E44.0 Moderate protein-calorie malnutrition; F33.9 Major depressive disorder, recurrent, unspecified; G62.9 Polyneuropathy, unspecified; E87.8 Other disorders of electrolyte and fluid balance, not elsewhere classified; N18.3 Chronic kidney disease, stage 3 (moderate); I12.9 Hypertensive chronic kidney disease with stage 1 through stage 4 chronic kidney disease, or unspecified chronic kidney disease; N32.81 Overactive bladder; K21.9 Gastro-esophageal reflux disease without esophagitis; E03.9 Hypothyroidism, unspecified; F63.9 Impulse disorder, unspecified; M19.90 Unspecified osteoarthritis, unspecified site; I25.2 Old myocardial infarction; Z85.46 Personal history of malignant neoplasm of prostate; Z88.8 Allergy status to other drugs, medicaments and biological substances; Z79.82 Long term (current) use of aspirin; Z79.899 Other long term (current) drug therapy; Z87.891 Personal history of nicotine dependence; Z68.36 Body mass index [BMI] 36.0-36.9, adult

== ENCOUNTER 2017-02-25 18:42 | Inpatient (IN) | payer MEDICARE ==
[~2017-02-25] VITALS: Ht 182.9 cm; Wt 120.3 kg
--- NOTE | ~2017-02-25 | CON ---
[place], [place] REPORT OF CONSULTATION NAME: LAYLA ZALDIVAR UNIT #: [id number] ROOM: [facility] DOCTOR: FEDE HOOK MD BIRTHDATE: [birth year] DOS: 02/26/2017 CHIEF COMPLAINT: "Morning, I think I remember you." HISTORY OF PRESENT ILLNESS: This is a 76-year-old white male who had previously been admitted to the [facility] unit in November 2016. Following that admission, the patient returned home with his , but continued to have cognitive and behavioral decline. The patient fell and broke his hip shortly after Thanksgiving, was admitted to [facility] for treatment and then subsequently sent to the [facility] for rehab; however, upon admission to [facility], the patient has continued to show a verbal and physical aggression. He did rip out his catheter, causing bleeding from his penis. He has been so combative; he has put himself and others at risk of harm. He is now admitted to ICU for further evaluation and treatment. Since his arrival in ICU, the patient has been not only verbally and physically aggressive, but also very sexually inappropriate. He has also ripped out the catheter again while in ICU and continues to receive treatment. PAST MEDICAL HISTORY: Remarkable for chronic kidney disease stage 3, osteoarthritis, depression, hypertension, GERD, hypothyroidism, [place], neuropathy, prostate cancer, severe protein calorie malnutrition. MENTAL STATUS: The patient is alert and oriented to self. It is unclear if he realizes he is in the hospital, nor did he verbalize how long he has been there. His response is tended to be very short and at times inappropriate. There was a significant lag time in his responses, so he was having a considerable amount of processing difficulty. He did attempt to confabulate too to cover memory loss. He was pleasant with me and exhibited no agitation or aggression. There were no overt auditory or visual hallucinations noted and no paranoid statements were made. I did not fully test his cognitive functioning because of his significant processing difficulty. DIAGNOSIS: Psychiatrically major depression, recurrent, with psychotic features. PLAN: I do believe this gentleman would benefit from another stay at the [facility] given his sexual inappropriate behavior as well as verbal and physical aggression with cognitive decline. Once you feel that he is medically stable, I would be happy to take him back to the [facility] Unit to do so. [place], [place] REPORT OF CONSULTATION NAME: LAYLA ZALDIVAR UNIT #: [id number] ROOM: [facility] DOCTOR: FEDE HOOK MD BIRTHDATE: [birth year] FEDE HOOK MD CM:CONSTR:REPORT OF CONSULTATION 9 02/26/1749 interface
--- NOTE | ~2017-02-25 | EKG ---
[place], [place] ELECTROCARDIOGRAM REPORT NAME: LAYLA ZALDIVAR UNIT #: [id number] ROOM: [facility] DOCTOR: MEL MCNAMARA,LAKISHA BIRTHDATE: [birth year] DOS: 02/25/2017 TIME: 1926 hours. IMPRESSION: 1. Atrial fibrillation with rapid ventricular rate of 114. 2. Low voltage complexes. 3. Slightly prolonged QTc. 4. Baseline artifacts. LAKISHA LEAL MD CM:EKGRPT:ELECTROCARDIOGRAM REPORT [id number] LAKISHA LEAL MD
--- NOTE | ~2017-02-25 | EKG ---
[place], [place] ELECTROCARDIOGRAM REPORT NAME: LAYLA ZALDIVAR UNIT #: [id number] ROOM: [facility] DOCTOR: MEL MCNAMARA,LAKISHA BIRTHDATE: [birth year] DOS: 02/25/2017 TIME: 2125 hours. IMPRESSION: 1. Atrial fibrillation with a ventricular rate about 100. 2. Nonspecific ST-T changes. LAKISHA LEAL MD CM:EKGRPT:ELECTROCARDIOGRAM REPORT [id number] 1310 LAKISHA LEAL MD
[~2017-02-25 18:42] MED LIST changes: +ALEVE220 M1 PO; +ARICEPT5 M1 PO; +BAYER ASPIRIN C81 MG PO; +CENTRUM SILVER1 EACH PO; +CITALOPRAM40 MG PO; +COLACE100 MG PO; +DIVALPROEX SOD125 M1 PO; +ELOCON 0.1% CRE15 GM T; +FUROSEMIDE40 MG PO; +MIRALAX17 GM PO; +MYRBETRIQ50 M1 PO; +Meclizine25 MG PO; +NAMENDA-5 PO; +NEURONTIN300 MG PO; +NEXIUM20 M1 PO; +RANITIDINE HCL150 M1 PO; +RIVASTIGMINE1 EAC1 T; +SIMVASTATIN20 MG PO; +Synthroid,Levo25 MCG PO; +TOPROL XL25 MG PO; +TYLENOL325 M2 PO; +ZANTAC 150150 MG PO
[2017-02-25 19:04] VITALS: BP 140/65
[2017-02-25 19:49] LABS: BILIRUBIN NEGATIVE (NEGATIVE); BLOOD 3+ (NEGATIVE); CLARITY SL CLOUDY (CLEAR); COLOR YELLOW (YELLOW); GLUCOSE NEGATIVE (NEGATIVE); KETONE NEGATIVE (NEGATIVE); LEUKO ESTERASE NEGATIVE (NEGATIVE); NITRITE NEGATIVE (NEGATIVE); PH 5.5 (5.0-9.0); UROBILINOGEN 0.2 E.U./dl (0.2-1.0)
[2017-02-25 19:57] LABS: BACTERIA 1+; RBC TNTC rbc/hpf (0-2)
[2017-02-25 19:58] LABS: WBC 0-2 wbc/hpf (0-5)
[2017-02-25 20:04] LABS: URINE AMPHETAMINES < 1000 (1000ng/ml); URINE BARBITURATES < 200 (200ng/ml); URINE BENZODIAZEPINES < 200 (200ng/ml); URINE CANNABINOIDS (THC) < 50 (50ng/ml); URINE COCAINE < 300 (300ng/ml); URINE METHADONE < 300 (300ng/ml); URINE OPIATES < 300 (300ng/ml); URINE PHENCYCLIDINE < 25 (25ng/ml)
[2017-02-25 20:16] LABS: BASO % 0.3 % (0.0-1.0); EOS # 0.4 10*3/uL (0.0-0.4); EOS % 5.4 % (1.0-4.0); HEMOGLOBIN 10.2 g/dl (14.0-18.0); LYMPH # 1.8 10*3/uL (1.3-4.4); LYMPH % 24.3 % (27.0-41.0); MEAN CELL VOLUME 92.3 fl (80.0-94.0); MEAN CORPUSCULAR HGB 31.4 pg (27.0-31.0); MEAN PLATELET VOLUME 9.6 fl (9.6-12.3); MONO # 0.6 10*3/uL (0.1-1.0); MONO % 8.5 % (3.0-9.0); NEUT # 4.6 10*3/uL (2.3-7.9); NEUT % 60.4 % (47.0-73.0); PLATELET COUNT AUTOMATED 287 10*3/uL (130-400); RED BLOOD COUNT 3.25 10*6/uL (4.50-5.90); RED CELL DISTRI WIDTH 13.5 % (0-14.5); WHITE BLOOD COUNT 7.6 10*3/uL (4.8-10.8)
[2017-02-25 20:25] LABS: INTERNATIONAL NORM RATIO 1.1 (2.0-3.5)
[2017-02-25 20:33] LABS: ALBUMIN 2.6 gm/dl (3.1-4.5); ALKALINE PHOSPHATASE 125 U/L (45-117); BUN 16 mg/dl (7-24); CHLORIDE 104 mmol/L (98-107); CREATININE 0.96 mg/dL (0.70-1.30); LIPASE 111 U/L (73-393); SGOT/AST 33 IU/L (3-35); SGPT/ALT 27 U/L (12-78); SODIUM 140 mmol/L (136-145); TOTAL PROTEIN 6.3 gm/dL (6.4-8.2); TROPONIN I < 0.015 ng/ml (<0.045)
[2017-02-25 21:50] VITALS: BP 144/72
--- NOTE | 2017-02-25 22:10 | NUR ---
PATIENT HAD 200ML URINE OUTPUT. HEMATURIA NOTED.
[2017-02-25 22:40] VITALS: BP 154/76
--- NOTE | 2017-02-25 22:40 | NUR ---
A 76, admitted to ICCU, under the services of LANCE Husain DO with a diagnosis of change in mental status and afib with rvr. Chief complaint is continued oozing of blood from penis and combativeness. Patient arrived via stretcher from ER. Monitor applied. Initial assessment completed. Vital signs taken and recorded. LANCE HUSAIN DO notified of admission to the unit. Orders received. Dr Mckinneyaw here to examine pt and attempt H&P and he was also made aware of penile bleeding and examined the oozing of blood himself. See assessment for past medical history, medications and allergies. Patient and/or family oriented to unit. [facility] visitation policy reviewed. Clothing/patient valuable form completed. No family present, medications reconciled from correction paperwork, pt uncooperative, yelling out, combative. LANNY ROA
[2017-02-25 22:55] VITALS: BP 142/76
[2017-02-25] MEDS ORDERED: ASPIRIN325 MG PO (23:07)
[2017-02-25] MEDS ORDERED: CITALOPRAM10 MG PO (23:10)
[2017-02-25] MEDS ORDERED: QUETIAPINE FUM100 M2 PO (23:16)
[2017-02-25] MEDS ORDERED: TRAMADOL HCL50 MG PO (23:21)
[2017-02-26] VITALS: BP 139/66
--- NOTE | 2017-02-26 00:44 | NUR ---
HOPE AND I ATTEMPTED TO ROLL PT TO SIDE TO REMOVE DRESSING FROM RT HIP...PT YELLED, BECAME VERBALLY AGGRESSIVE AND COMBATIVE.....UNABLE TO ASSESS AND MEASURE.
--- NOTE | 2017-02-26 01:10 | NUR ---
FREQUENTLY AT PT BEDSIDE TO RE-COVER HIM HE THROWS SHEETS/BLANKETS OFF, URINATED AND SPIT ON THE FLOOR. HE IS UNCOOPERATIVE AND THEN TRIES TO GRAB ME AND SAY "JUST CRAWL UNDER THE BLANKETS WITH ME".
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
--- NOTE | 2017-02-26 02:19 | NUR ---
I WAS ON TELEPHONE SPEAKING WITH ITZEL FROM [facility] TO HAVE HER FAX COPY OF [facility] RECORDS, PT PULLED OFF ALL OF HIS LEADS AND PULLED OUT IV FROM LT HAND. HE REFUSES AN IV RESTART AND BECOMES COMBATIVE I PLACE LEADS BACK ON HIS CHEST. ATTEMPTS TO REORIENT ARE FUTILE.
--- NOTE | 2017-02-26 02:31 | NUR ---
MESSAGE LEFT WITH [facility] RE: DR HOOK CONSULT NOTIFICATION.
--- NOTE | 2017-02-26 02:49 | NUR ---
PT COMBATIVE WITH TRYING TO CHANGE HIS BED LINENS WET FROM URINE AND BLOOD FROM PENIS. NO FURTHER BLEEDING AND CLOT NOTED AT [facility]. DR VIGIL HERE. ATIVAN GIVEN ORDERED.... WILL CHANGE BED WHEN PT RELAXES AND BECOMES MORE COOPERATIVE.
--- NOTE | 2017-02-26 03:06 | NUR ---
INFORMATION FOR CONSULT GIVEN TO DR CONNOLLY'S ANSWERING SERVICE.
--- NOTE | 2017-02-26 03:16 | NUR ---
DR LEAL CALLS BACK...INFORMED OF CONSULT AND PT CONDITION....WILL SEE IN AM.
--- NOTE | 2017-02-26 03:38 | NUR ---
RECORDS FROM [facility] RECEIVED AND PLACED IN CHART. IN THESE RECORDS, PT DID HAVE ATRIAL FIBRILLATION. THIS IS NOT NEW FOR HIM.
[2017-02-26 04:00] VITALS: BP 130/69
--- NOTE | 2017-02-26 04:06 | NUR ---
ATIVAN SOMEWHAT EFFECTIVE. PT CLEANSED AND ENTIRE BED CHANGED. APPEARS TO BE NSR WITH PAC'S AT THIS TIME.
[2017-02-26 04:30] LABS: BASO % 0.2 % (0.0-1.0); EOS # 0.4 10*3/uL (0.0-0.4); EOS % 5.3 % (1.0-4.0); HEMATOCRIT 29.2 % (42.0-52.0); HEMOGLOBIN 9.8 g/dl (14.0-18.0); LYMPH # 1.8 10*3/uL (1.3-4.4); LYMPH % 22.2 % (27.0-41.0); MEAN CELL VOLUME 92.1 fl (80.0-94.0); MEAN CORPUSCULAR HGB 30.9 pg (27.0-31.0); MEAN CORPUSCULAR HGB CONC 33.6 g/dl (33.0-37.0); MEAN PLATELET VOLUME 9.9 fl (9.6-12.3); MONO # 0.7 10*3/uL (0.1-1.0); MONO % 8.6 % (3.0-9.0); NEUT # 5.1 10*3/uL (2.3-7.9); NEUT % 62.1 % (47.0-73.0); PLATELET COUNT AUTOMATED 285 10*3/uL (130-400); RED BLOOD COUNT 3.17 10*6/uL (4.50-5.90); RED CELL DISTRI WIDTH 13.5 % (0-14.5); WHITE BLOOD COUNT 8.3 10*3/uL (4.8-10.8)
--- NOTE | 2017-02-26 04:31 | NUR ---
DR DAO NOTIFIED OF PT HISTORY OF AFIB NOTED ON THE [facility] MEDICAL RECORDS. ALSO THAT PT IS NOW NSR.
[2017-02-26 04:44] LABS: INTERNATIONAL NORM RATIO 1.2 (2.0-3.5)
--- NOTE | 2017-02-26 04:56 | NUR ---
PT SLEEPING....BODY RELAXED.
[2017-02-26 05:00] LABS: ALBUMIN 2.4 gm/dl (3.1-4.5); ALKALINE PHOSPHATASE 123 U/L (45-117); BUN 14 mg/dl (7-24); CHLORIDE 104 mmol/L (98-107); CREATININE 0.97 mg/dL (0.70-1.30); PHOSPHOROUS 3.3 mg/dL (2.5-4.9); POTASSIUM 3.9 mmol/L (3.5-5.1); SGOT/AST 31 IU/L (3-35); SGPT/ALT 25 U/L (12-78); SODIUM 140 mmol/L (136-145); TOTAL PROTEIN 5.9 gm/dL (6.4-8.2)
[2017-02-26 06:00] VITALS: BP 130/68
--- NOTE | 2017-02-26 06:08 | NUR ---
PT SLEEPING AT THIS TIME. HE WILL YELL OUT WITH EYES CLOSED AND SWING BUT RETURNS TO SLEEP. NOT INCONTINENT AT THIS TIME.
[2017-02-26 08:00] VITALS: BP 137/72
--- NOTE | 2017-02-26 08:15 | NUR ---
PATIENT HAVING VISUAL & AUDITORY HALLUCINATIONS DURING ASSESSMENT. ATTEMPTS TO RE-ORIENT UNSUCCESSFUL AND JUST CAUSES THE PATIENT TO BECOME MORE & MORE AGGITATED. DRESSING TO RT HIP SECURE & PATENT BUT PATIENT OT ALLOWING STAFF TO VISUALIZE. SCREAMING, TRYING TO HIT & PINCH STAFF WHEN ATTEMPTING TO TURN. DIAPER CHANGED FOR URINE WITH SMALL AMOUNT OF SEEPING LIGHT COLORED BLOOD.
--- NOTE | 2017-02-26 08:29 | NUR ---
PHYSICAL THERAPY Nursing screen recieved. Not appropriate at this time. Combative and medically very ill. Please order when appropriate. PAtient is recent hip fracture and at [facility] for rehab, contacted facility for orthopedic proceedure completed and weight bering status permitted. Awaiting answer. Thank you. Mahsa nance,PT
--- NOTE | 2017-02-26 09:00 | NUR ---
Recoater in to talk to patient. Patient was admitted yesterday to [place] Physician: Dr. Christ Pizano Pharmacy: [facility] Patient's level of ADLs: MAX ASSIST Follow-up physician's appointment after d/c: will be made by hospitalist nurse director upon discharge Does patient want to access PORTAL?: no Discharge plan discussed with nurse, Iva, who states patient is confused and combative. Dr. Lauren has agreed to have patient discharged to [facility] when medically stable. KENDRICK CAI
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
--- NOTE | 2017-02-26 10:00 | NUR ---
UNABLE TO PLACE YELLOW & BROWN BANDS THE PATIENT BECAME MORE AGGITATED SO PLACED ON THE BOTTOM OF THE BED. YELLOW STAR PLACED ABOVE THE BED FOR FALL RISK
--- NOTE | 2017-02-26 11:45 | NUR ---
LAYLA ZALDIVAR [id number] Please refer to the physician's history and physical for past medical history, comorbid conditions, and allergies. Diagnosis: CHANGE IN MENTAL STATUS ATRIAL FIBRILLATION W RVR Timothy Score: 14,MODERATE RISK WOUND DESCRIPTIONS: Location of the wound: right hip Type of wound: surgical Thickness: Size: 0.1cm x 15cm x <0.1cm Tunneling: none Undermining: none Sinus Tract: none Presence of Exudate: Amount: None Color: Aguilera Odor: None Periwound Skin Appearance: Normal Wound edges: closed Pain (associated with wound): patient unable to tell us if this area hurt How does patient state this happened? patient unable to say how this happened. Location of the wound: left buttocks Type of wound: DTI Thickness: Size: 3cm x 0.5cm x 0.1cm Tunneling: none Undermining: none Sinus Tract: none Presence of Exudate: Serous Amount: Light Color: Purple Odor: None Periwound Skin Appearance: Normal Wound edges: approximated Pain (associated with wound): patient unable to state if this area is painful How does patient state this happened? patient unable to say how this happened Surface the patient is resting on: XPRT SKIN PREVENTION RECOMMENDATION: 1. Pressure redistribution support surface as appropriate 2. Elevate heels 3. Remove boots/TEDS every shift and reapply 4. Head of bed 30 degrees as tolerated 5. Assess nutrition and hydration 6. Manage moisture 7. Avoid the use of containment devices while in bed 8. Use absorptive products on surfaces limit layers of linens on bed 9. Turn and reposition every 1-2 hours in bed and every 1 hour in chair as tolerated 10. Weight shifts every 15 minutes while up in chair 11. Offloading with pillows or device to keep heels elevated off bed 12. Monitor skin at least every shift 13. Inspect under medical devices twice a day WOUND TREATMENT RECOMMENDATIONS: Right hip: Cleanse area with soap and water and pat dry. Apply dry dressing. DTI left butt: Cleanse wound with NSS and apply sureprep around wound and allow to dry. Apply therahoney and optifoam gentle.
--- NOTE | 2017-02-26 11:53 | NUR ---
PATIENT STILL PICKING AT THE AIR, TALKING TO PEOPLE THAT AREN'T THERE. AGRESSIVE WHEN ATTEMPTING TO TURN/REPOSITION. PT INCONTINENT OF URINE
[2017-02-26 12:00] VITALS: BP 130/70
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
--- NOTE | 2017-02-26 13:00 | NUR ---
YOLI FROM MACHINE SET UP TECHNICIAN CALLED [facility] AND WAS TOLD THAT MR ZEN SAXENA RETURN TO THEIR FACILITY D/T BEHAVIOR ISSUES. DR MUKHERJEE NOTIFIED AND WE WILL DISCUSS WITH THE . DISCUSSED WITH THE AND SHE REQUESTED [facility] AND [facility] HE COULD GO.
--- NOTE | 2017-02-26 13:28 | NUR ---
[facility] AND [facility]AL HEALTH UNIT. SHE SAID HE MAY GO TO OUR [facility]. DR ROJAS MADE AWARE & [facility] WILL TAKE HIM AT 4PM.
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
--- NOTE | 2017-02-26 14:36 | NUR ---
PHYSICAL THERAPY Case discussion with RN, Iva Soto. Patient had total hip replacement at [facility]. WBAT permitted. PAtient confused and combative this date. Hallucinating and reching for objects that are not there as well as people. Unable to safely participate in PT evaluation at this time. Will attempt at a later date. Thank you for this referral. Mahsa Person,PT
--- NOTE | 2017-02-26 14:59 | NUR ---
STILL TALKING TO THE AIR. SCREAMS WITH ANY CARE. GRABBING AT THE STAFF WITH CARE.
--- NOTE | 2017-02-26 15:45 | NUR ---
PATIENT AWOKE FOR ASSESSMENT. HE THEN SAID THAT HE FEELS LIKE SHIT AND WANTED TO KNOW WHAT HE COULD HAVE FOR ANXIETY. OFFERED [facility] ROBAXIN AND HE REFUSED ALL. ATTEMPTED TO EXPLAIN THAT THEY WERE NOT GOING TO GIVE HIM ANYTHING THAT HAS SEDATING EFFECTS. HE JUST MUMBLED AND TURNED OVER AND WENT BACK TO SLEEP.
[2017-02-26 16:00] VITALS: BP 130/70
--- NOTE | 2017-02-26 16:56 | NUR ---
IV HEP LOCK REMOVED.
--- NOTE | 2017-02-26 17:31 | NUR ---
PATIENT AGAIN STARTING TO TALK IN HIS SLEEP. MAKING NOISES.
--- NOTE | 2017-02-26 18:14 | NUR ---
TRANSFERRED TO 3N VIA BED WITH PRESENT
== END 2017-02-26 18:14 | disposition home health service (06) | DRG 308 ==
LOC: ED 18:42 → ICCU 21:22 → EDHOLD 21:22 → ICCU 21:52
PROVIDERS: Emergency Medicine Emergency Medical Services; Family Medicine; ADMIT Student in an Organized Health Care Education/Training Program
DX: I48.0 Paroxysmal atrial fibrillation (principal); E43 Unspecified severe protein-calorie malnutrition; F03.91 Unspecified dementia, unspecified severity, with behavioral disturbance; G62.9 Polyneuropathy, unspecified; F33.3 Major depressive disorder, recurrent, severe with psychotic symptoms; N48.89 Other specified disorders of penis; D64.9 Anemia, unspecified; N32.81 Overactive bladder; E03.9 Hypothyroidism, unspecified; N39.41 Urge incontinence; I12.9 Hypertensive chronic kidney disease with stage 1 through stage 4 chronic kidney disease, or unspecified chronic kidney disease; N18.3 Chronic kidney disease, stage 3 (moderate); K21.9 Gastro-esophageal reflux disease without esophagitis; R73.9 Hyperglycemia, unspecified; R41.89 Other symptoms and signs involving cognitive functions and awareness; M19.90 Unspecified osteoarthritis, unspecified site; Z95.5 Presence of coronary angioplasty implant and graft; Z79.1 Long term (current) use of non-steroidal anti-inflammatories (NSAID); Z87.891 Personal history of nicotine dependence; Z88.8 Allergy status to other drugs, medicaments and biological substances; Z79.82 Long term (current) use of aspirin; Z79.899 Other long term (current) drug therapy; Z91.81 History of falling; Z87.81 Personal history of (healed) traumatic fracture; Z68.35 Body mass index [BMI] 35.0-35.9, adult

== ENCOUNTER 2017-02-26 18:23 | Inpatient (IN) | payer MEDICARE ==
[~2017-02-26] VITALS: Ht 182.8 cm; Wt 120.3 kg
--- NOTE | ~2017-02-26 | PR ---
[place], [place] PROGRESS NOTE NAME: LAYLA ZALDIVAR UNIT #: [id number] ROOM: 310 DOCTOR: SLAVA MCNAMARA,ROB BIRTHDATE: [birth year] DOS: CHIEF COMPLAINT: "Okay." SUBJECTIVE: The patient is a 76-year-old male admitted due to altered mental status and increasing agitation, also inappropriate sexual behavior. He also has depression with psychotic features. He is started on meds and today seen sitting in a Kiara chair in dining area. He could not engage in any meaningful conversation, was dozing off, could not tell where he is and seemed confused as per nurse's report. He is still sexually inappropriate and acting out. He did sleep 3 hours last night and he has poor appetite. MENTAL STATUS EXAMINATION: The patient is sleepy and could not hold any meaningful conversation, seemed confused, oriented to self only, very poor eye contact with flat affect. No overt psychosis noted. PLAN: The patient needs further stabilization. We shall continue his medicines and I shall reevaluated if we need to increase Depo-Provera tomorrow depending upon his behavior today and we shall try to engage him in osuna milieu as he is more stable. ROB PEDERSEN MD CM:PNTRANS [id number] ROB PEDERSEN MD 03/02/17 1157 interface
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
--- NOTE | ~2017-02-26 | WRIGHTHP ---
[place], [place] PATIENT HISTORY AND PHYSICAL EXAM NAME[id number] UNIT #: [id number] ROOM: 310 DOCTOR: FEDE HOOK MD BIRTHDATE: [birth year] DOS: 02/27/2017 INITIAL PSYCHIATRIC EVALUATION. CHIEF COMPLAINT: "Yeah, I slept okay." SUMMARY: OF THE VISIT: The patient was interviewed as he reclined in a Kiara chair in the quiet room. The patient was admitted to the [facility] from a long-term care facility due to altered mental status. The patient had previously been here in November of this year and had returned home. The patient did fall and break his hip shortly after Thanksgiving, was admitted to [facility] and from there was admitted to the local long-term care facility. Upon his admission to the long-term care facility, the patient exhibited extreme agitation with both verbal and physical aggression. The patient was striking out at others. The patient also had pulled out his catheter twice causing bleeding from the penis. The patient has been sexually inappropriate, which was an ongoing issue and has made both comments and has grabbed at staff inappropriately. The patient is now admitted to the [facility] to rule out any further organic problems, to stabilize on medication, ultimately deciding what is the least restrictive environment to return him to once he is stable. PAST MEDICAL HISTORY: Remarkable for atrial fibrillation, arthritis, chronic kidney disease stage III, dementia, depression, hypertension, GERD, hypothyroidism, neuropathy, overactive bladder, prostate cancer, severe protein calorie malnutrition and a history of an OK. MENTAL STATUS: The patient is alert and oriented to self. His responses tended to be short and simple, more often than not totally inappropriate. He made some sexual behaviors during the interview. He was very inappropriate for the most part. There is a significant cognitive decline noted. The patient overall was not able to respond appropriately. There was, however, no agitation or aggression. There was no mood lability noted. Short term and intermediate memory are grossly impaired. DIAGNOSES: Major depression, recurrent with psychotic features and Alzheimer's dementia. PLAN: I have maintained the patient on Celexa 20 mg a day to attempt to decrease his libido and sexually inappropriate behavior. However, despite this fact, the patient continues to exhibits sexually inappropriate behavior, so he may require intervention with Provera to decrease this type of behavior. I have started the patient on Depakote 500 mg 3 times a day to decrease his impulsivity and mood lability. I have maintained him on Exelon and Namenda. I will bring the Exelon to its maximum dose of 13.3 mg a day and increase his Namenda to 5 mg twice a day. We will engage in individual and osuna milieu activity with the ultimate plan to be returned to the least restrictive environment. [place], [place] PATIENT HISTORY AND PHYSICAL EXAM NAME: LAYLA ZALDIVAR UNIT #: [id number] ROOM: 310 DOCTOR: FEDE HOOK MD BIRTHDATE: [birth year] FEDE HOOK MD CM:HISPHYS:PATIENT HISTORY AND PHYSICAL EXAMINATION 3 6 FEDE HOOK MD 02/27/17837 interface
--- NOTE | ~2017-02-26 | PR ---
[place], [place] PROGRESS NOTE NAME: LAYLA ZALDIVAR UNIT #: [id number] ROOM: 310 DOCTOR: GI REDDY,MY BIRTHDATE: [birth year] DOS: 02/28/2017 CHIEF COMPLAINT: "Of course." SUMMARY OF THE VISIT: The patient was interviewed when he is in a Kiara chair in a quiet room across the nurse station. Said he is hungry and "of course" wants breakfast. To the end of the interview, the patient responses to questions by singing. He slept roughly 4 hours last night and noted talking and singing to himself, doing those when he was awake. Today, the patient also complains of painful urination. Nurse noted moderate amount of bright red blood in Depends and notified medical team. The patient pulled out his Mccartney catheter a few times since he came here. Staff complained of him using profanity and making inappropriate sexual comments, such as "I like to eat that pussy" and "do you want to see my dingling." MENTAL STATUS: Alert and oriented to self, but not place or time. There is overt evidence of hallucination with sporadic episodes of verbal agitation. There is a significant cognitive decline noted. There is no aggressive manner noted. Mood is not labile. Impaired short-term memory. PLAN: We will discontinue Celexa and will start on Provera 10 mg b.i.d. to decrease inappropriate sexual behavior. We will also increase Namenda 10 mg in a.m. and 5 mg at night. Continue Depakote 500 t.i.d. to decrease his impulse activity and mood labile. We will continue to engage the patient in individual and osuna milieu with the ultimate plan is to return him to the least restrictive environment. MY GI, DO FEDE HOOK MD CM:PNTRANS [phone] MY GI DO 02/28/17 1256 interface
--- NOTE | ~2017-02-26 | PR ---
[place], [place] PROGRESS NOTE NAME: LAYLA ZALDIVAR UNIT #: [id number] ROOM: 310 DOCTOR: GI REDDY,MY BIRTHDATE: [birth year] DOS: 03/05/2017 CHIEF COMPLAINT: "No response." SUMMARY OF THE VISIT: The patient was interviewed in his room, did not respond to questions, but moaning and screaming loudly. According to staff, the patient did not get much sleep last night, up screaming and moaning throughout the night, but could not communicate his condition verbally. Ativan was only effective for roughly 1 hour. The patient has not been unable to eat, drink or take any medications in the last 24 hours, refused to open his mouth for anything. Speech therapy was not able to evaluate the patient due to his current condition, noted a slight increase in temperature and WBC today as well. MENTAL STATUS: Assessment is limited due to his current medical condition. PLAN: We will continue current medical management. Urinalysis ordered, result is pending. Medical team has been notified for further management of the patient's condition. MY GI, DO FEDE HOOK MD CM:PNTRANS 7 7 OPAL ANGELO DO 03/05/1739 interface
--- NOTE | ~2017-02-26 | PR ---
[place], [place] PROGRESS NOTE NAME: LAYLA ZALDIVAR UNIT #: [id number] ROOM: 310 DOCTOR: SLAVA MCNAMARA,ROB BIRTHDATE: [birth year] DOS: CHIEF COMPLAINT: "Good morning." SUBJECTIVE: The patient is seen this morning, sitting in Kiara chair in quiet room. He has been sleepy and drowsy most of the morning, though he did look at me and said good morning. He has not eaten his breakfast and has not been drinking much fluid. This morning, he is not able to have any conversation since he is feeling drowsy. We did not notice any acting out behavior, maybe because he is sleepy. MENTAL STATUS EXAM: The patient is drowsy and sleepy this morning. Did open his eyes and said good morning. Could not hold any meaningful conversation. There is no agitation or sexually inappropriate behavior this morning. PLAN: The patient's sexually acting out behavior is diminishing, hopefully responding to the current medicines. His Depakote level is 67.1, shall continue the same dose. He has not been taking enough fluids and is getting dehydrated. Nurse is going to contact the hospitalist to see if he would need any IV fluids. Shall monitor his progress. ROB PEDERSEN MD CM:ADRYAN [phone] ROB PEDERSEN MD 03/03/17 1420 interface
--- NOTE | ~2017-02-26 | PR ---
[place], [place] PROGRESS NOTE NAME: LAYLA ZALDIVAR UNIT #: [id number] ROOM: 310 DOCTOR: FEDE HOOK MD BIRTHDATE: [birth year] DOS: 03/04/2017 CHIEF COMPLAINT: "The patient was somnolent and did not engage in conversation." SUMMARY OF THE VISIT: The patient was attempted to be interviewed as he reclined in a Kiara sitting in the dining area. The patient was very somnolent. Nurses report that he continues to have issues with excess somnolence as well as pocketing his food and having inability to swallow. Of the medications that he is taking it appears only the Depakote could potentially have this side effect. Otherwise, the patient continues to have episodes of sporadic yelling out. Some sexual inappropriate behavior is present, but this seems to be lessening in frequency and intensity. MENTAL STATUS: Limited due to his overall level of somnolence. PLAN: At this point, I will discontinue his Depakote and see if this somnolence clears. I will renew the p.r.n. Ativan in case he requires any type of p.r.n. intervention. We will attempt to engage in individual and osuna milieu activity with the ultimate plan to return to at least a 30-day rehab stay to help rehabilitate his hip fracture. FEDE HOOK MD CM:PNTRANS [phone] FEDE HOOK MD 03/04/17 0956 interface
[~2017-02-26 18:23] MED LIST changes: +ASPIRIN325 MG PO; +CITALOPRAM10 MG PO; +QUETIAPINE FUM100 M2 PO; +TRAMADOL HCL50 MG PO
--- NOTE | 2017-02-26 19:50 | NUR ---
found client laying sideways in bed with feet on floor. with assist of 4 we repotioned him in bed. client combative, pinching and hitting with movement. continues to scream out.
[2017-02-26 20:18] VITALS: BP 146/80
--- NOTE | 2017-02-26 20:30 | NUR ---
REMAINS CONFUSED AND APPEARS TO BE REACTING TO VISUAL AND AUDITORY HALLUCINATIONS. LOOKING TOWARD THE CEILING AND POINTING THEN TURNS TO WALL AND STARTS TALKING AND YELLING. UNABLE TO REDIRECT. INCREASED AGGRESSION PHYSICALLY AND VERBALLY WITH ANY HANDS ON CARE. THREATENING TO KILL STAFF
--- NOTE | 2017-02-26 21:27 | NUR ---
CIENT COMBATIVE AND ASSAUTIVE TOWARD STAFF. SITTING UP ON SIDE OF BED SWINGING AT STAFF, ATTEMPTING TO BITE WHEN WE APPROACHED. ALSO ATTEMPTED TO HEAD BUTT STAFF WHILE GETTING HIM ONTO BED. SECURITY CALLED. GOT CLIENT INTO [facility] CHAIR AND BROUGHT TO [facility]. CLIENT AGREED TO TAKE MEDICaTIONS WHILE SECURITY HERE THEN STARTED BECOMING VERBALLY AND PHYSICALLY AGGRESSIVE AGAIN. ANGELIQUEDON GIVEN PER ORDERS. WILL MONITOR CLOSELY
--- NOTE | 2017-02-26 22:34 | NUR ---
APPEARS GEODON EFFECTIVE. LAYING QUIET IN CHAIR IN FRONT OF NURSING STATION. EYES CLOSED. DENTURES REMOVED AND ARE SOAKING IN HIS BATHROOM. INTERMITTENTLY TALKING IN SLEEP
--- NOTE | 2017-02-26 23:00 | NUR ---
STOOD UP WITH ASSIST OF 4 TO CHANGE CLIENT. INCONT OF URINE MULTIPLE TIMES WHILE TRYING TO CHANGE HIM. BLOOD TINGED URINE NOTED DURING CHANGING. REFUSES TO STAND UP STRAIGHT KEPT TRYING TO SIT.
--- NOTE | 2017-02-27 00:06 | NUR ---
REFUSED STAFF TO VIEW OR TAKE PICTURES OF HIS S/P SURGICAL SITE ON RIGHT HIP OR LEFT BUTTOCKS DEEP TISSUE WOUND. SPOKE WITH [facility] RN THAT HAD HIM ON THE FLOOR AND SHE GAVE ME MEASUREMENT AND INFORMED SHE SHE CHANGED DRESSINGS TODAY
--- NOTE | 2017-02-27 02:01 | NUR ---
SLEEPING INTERMITTENTLY. WHEN AWAKE APPEARS TO BE REACHING FOR SOME UNSEEN OBJECTS. SEXUAL REMARKS FROM CLIENT DURING REPOSITIONING
--- NOTE | 2017-02-27 05:00 | NUR ---
DR VIGIL HERE TO SEE CLIENT 24 HR chart check completed.
--- NOTE | 2017-02-27 06:46 | NUR ---
SLEPT WELL AFTER MIDNIGHT
[2017-02-27 07:30] VITALS: BP 143/64
[2017-02-27 07:43] LABS: BASO % 0.5 % (0.0-1.0); EOS # 0.5 10*3/uL (0.0-0.4); EOS % 6.2 % (1.0-4.0); HEMATOCRIT 31.1 % (42.0-52.0); HEMOGLOBIN 10.5 g/dl (14.0-18.0); LYMPH % 23.6 % (27.0-41.0); MEAN CELL VOLUME 92.6 fl (80.0-94.0); MEAN CORPUSCULAR HGB 31.3 pg (27.0-31.0); MEAN CORPUSCULAR HGB CONC 33.8 g/dl (33.0-37.0); MEAN PLATELET VOLUME 9.7 fl (9.6-12.3); MONO # 0.7 10*3/uL (0.1-1.0); MONO % 8.7 % (3.0-9.0); NEUT # 4.9 10*3/uL (2.3-7.9); NEUT % 59.3 % (47.0-73.0); PLATELET COUNT AUTOMATED 316 10*3/uL (130-400); RED BLOOD COUNT 3.36 10*6/uL (4.50-5.90); RED CELL DISTRI WIDTH 13.5 % (0-14.5); WHITE BLOOD COUNT 8.3 10*3/uL (4.8-10.8)
[2017-02-27 07:57] LABS: ALBUMIN 2.7 gm/dl (3.1-4.5); ALKALINE PHOSPHATASE 135 U/L (45-117); BUN 13 mg/dl (7-24); CHLORIDE 104 mmol/L (98-107); CREATININE 0.95 mg/dL (0.70-1.30); POTASSIUM 3.7 mmol/L (3.5-5.1); SGOT/AST 31 IU/L (3-35); SGPT/ALT 29 U/L (12-78); SODIUM 142 mmol/L (136-145); TOTAL PROTEIN 6.4 gm/dL (6.4-8.2)
[2017-02-27 08:35] LABS: VITAMIN D, 25-HYDROXY 21.4 ng/mL (30-100)
--- NOTE | 2017-02-27 10:45 | NUR ---
MARIA ISABEL spoke with regarding discharge plans. Cindy stated that [facility] will not take him back until his behaviors are under control. MARIA ISABEL inquired where SW can make other referrals if [facility] do not take him back. cindy agreed to [facility], and [facility]. MARIA ISABEL will leave facilities names and adresses at Nurse's station so Cindy can visit them.
--- NOTE | 2017-02-27 10:56 | NUR ---
MARIA ISABEL SPOKE WITH GENE -[facility] OF [facility]. GENE SAID THAT [facility] SAID PT WAS NOT HAVING ANY BEHAVIORS. SOON PT WALKED IN BUILDING, HE LOST IT. GENE WILL CHECK WITH DON TO SEE IF FACILITY IS TAKING PT BACK. MARIA ISABEL WILL SEND UPDATED INFORMATION SO THAT PAS[facility] CAN BE UPDATED. GENE TY LET MARIA ISABEL KNOW.
--- NOTE | 2017-02-27 10:57 | NUR ---
LAYLA ZALDIVAR [id number] Please refer to the physician's history and physical for past medical history, comorbid conditions, and allergies. Diagnosis: BRIEF PSYCHOTIC EPISODE Timothy Score: , WOUND DESCRIPTIONS: Location of the wound: right hip Type of wound: surgical Thickness: Partial Size: 0.1cm x 15.0cm x <0.1cm Tunneling: none Undermining: none Sinus Tract: none Presence of Exudate: none Amount: None Color: Aguilera Odor: None Periwound Skin Appearance: Normal Wound edges: closed Pain (associated with wound): none at time of assessment How does patient state this happened? pt unable to state how this happened Location of the wound: left buttocks Type of wound: DTI Thickness: Full Size: 3.0cm x 0.5cm x 0.1cm Tunneling: none Undermining: none Sinus Tract: none Presence of Exudate: Serous Amount: None Color: Purple Odor: None Periwound Skin Appearance: Normal Wound edges: approximated Pain (associated with wound): none at time of assessment How does patient state this happened? pt unable to state how this happened Surface the patient is resting on: Proform SKIN PREVENTION RECOMMENDATION: 1. Pressure redistribution support surface as appropriate 2. Elevate heels 3. Remove boots/TEDS every shift and reapply 4. Head of bed 30 degrees as tolerated 5. Assess nutrition and hydration 6. Manage moisture 7. Avoid the use of containment devices while in bed 8. Use absorptive products on surfaces limit layers of linens on bed 9. Turn and reposition every 1-2 hours in bed and every 1 hour in chair as tolerated 10. Weight shifts every 15 minutes while up in chair 11. Offloading with pillows or device to keep heels elevated off bed 12. Monitor skin at least every shift 13. Inspect under medical devices twice a day WOUND TREATMENT RECOMMENDATIONS: Right hip cleanse area with soap and water and pat dry then apply dry dressing. DTI of left buttocks cleanse with nss apply sureprep surrounding wound bed then apply therahoney to wound bed then cover with optifoam gentle, Wheelchair when oob.
--- NOTE | 2017-02-27 11:00 | NUR ---
GENE -JOSETTE [facility] WILLING TO LOOK AT TAKING PT BACK IF DR. HOOK GETS HIS BEHAVIORS UNDER CONTROL. GENE SAID TO SEND OVER UPDATED INFORMATION.
--- NOTE | 2017-02-27 11:17 | NUR ---
TREATMNET TEAM WAS HELD WITH THE FOLLOWING: DR. HOOK, RESIDENT, RN, AT,SW. DR. HOOK IS RECOMMENDING AT LEAST A 30 DAY REHB STAY AT A SNF IF NOT DETENTION P[LACEMENT. [facility] MAY NOT TAKE PT BACK PER DR. HOOK.
--- NOTE | 2017-02-27 11:38 | NUR ---
Nutritional Support Services Note: Encourage intake of regular diet and Boost po TID with meals. Assist as needed. Will follow. Angeles Ying
--- NOTE | 2017-02-27 12:03 | NUR ---
Patient not available for Occupational Therapy evaluation this date as he was lethargic and unable to stay alert. OTR will attempt at a later date. Jennifer Houser OTR/tawny
--- NOTE | 2017-02-27 12:03 | NUR ---
PHYSICAL THERAPY Unable to arouse for PT evaluation this date. will attempt at a later date. Thank you for this referral. Mahsa Person,PT
--- NOTE | 2017-02-27 12:48 | NUR ---
Goals,Exercise, & [place] Craft Patient was in attendence for a short time but did not participate. Nurses took patient to his room for ADLs
--- NOTE | 2017-02-27 14:54 | NUR ---
Maury has exhibited some mood lability with sporadic episodes of verbal agitation. He has also been noted to make inappropriate sexual comments to staff and attempted to touch staff inappropriately as well. Minimally receptive to limit setting by staff and responds with joking statements. @ times he is thanking staff for caring for him then @ other times he is yelling out "leave me alone." Confusion is also noted and he has been noted to call staff by his 's name. Orientation provided. Attempted to assess wound sites, however, he was irritable and agitated and refused to allow staff to measure or take any pictures. Using profanity intervals. Wound care RNs on unit and did complete dressing change to lower back area (applied Thera Honey and optifoam). Dressing change completed to right hip area with the assistance of 4 staff members due to combativeness. He is not receptive to education when this is provided by staff. After 1:1 intervention failed to decrease his anxiousness and agitation he was medicated with ativan 1 mg po @ 0931. Ativan is effective in calming him and he was noted to nap afterwards. [facility] staff in to see him today and he was noted to also make inappropriate comments to her. Minimally receptive to redirection and limit setting provided by staff. He is suspected that he is also experiencing visual hallucinations as he has requested for staff to move items that are not there. Altered insight and judgement due to current mental status. Refer to [facility] flowsheet for specific monitoring throughout this day.
--- NOTE | 2017-02-27 15:52 | NUR ---
MARIA ISABEL FAXED UPDATED INFORMATON TO [facility]
--- NOTE | 2017-02-27 18:48 | NUR ---
Maury expressed some c/o discomfort and was medicated with ultram 50 mg po 1623. Reports bilateral leg discomfort but does not rate it when questioned. Relief obtained from discomfort. Spoke with pharmacy regarding lasix order of today as it is prescribed q 72 hours. It is reportedly not due until the . See MAR.
[2017-02-27 20:02] VITALS: BP 130/65
--- NOTE | 2017-02-27 23:42 | NUR ---
PATIENT ALERT AND ORIENTED TO PERSON WITH NOTED CONFUSION, APPEARS TO BE RESPONDING TO AUDITORY AND VISUAL HALLUCINATIONS, TALKING TO UNFORESEEN OTHERS AND POINTING TOWARDS A WALL AND STATED "WHAT KIND OF TRUCK DO YOU GOT". NOT RECEPTIVE TO REALITY ORIENTATION WHEN PROVIDED. PATIENT ALSO NOTED TO MAKE INAPPROPRIATE SEXUAL COMMENTS TO STAFF STATING "I LIKE TO EAT THAT PUSSY" AND "DO YOU WANT TO SEE MY DING A LING". MAXIMUM REDIRECTION AND LIMIT SETTING NEEDED BY STAFF. MEDICATION COMPLIANT WITHOUT DIFFICULTY. EXPRESSED DISCOMFORT IN BILATERAL LEGS AND WAS MEDICATED WITH TYLENOL 650MG AT 2158, PT DID NOT RATE PAIN WHEN QUESTIONED. AGRESSION AND IRRITABILITY NOTED WHEN STAFF PROVIDES HANDS ON CARE AND ASSISTANCE. UP IN QUINCY CHAIR NEAR NURSES STATION FOR SAFETY. CURRENTLY LAYING BACK WITH EYES CLOSED. RESPIRATIONS EASY AND REGULAR. NO SIGNS OR SYMPTOMS OF DISTRESS NOTED. PRN TYLENOL GIVEN AT 2158 EFFECTIVE AT THIS TIME. REFER TO [facility] FLOWSHEET FOR SPECIFIC MONITORING.
--- NOTE | 2017-02-28 05:03 | NUR ---
PATIENT OBSERVED ON Q 15 MIN CHECKS TO HAVE SLEPT APPROX 4 HOURS INTERRUPTED WITH MULITPLE AWAKENINGS NOTED OF PATIENT TALKING OR SINGING TO SELF. NO SIGNS OR SYMPTOMS OF DISTRESS NOTED.
--- NOTE | 2017-02-28 06:01 | NUR ---
PATIENT MOANING COMPLAINING OF PAIN WHILE VOIDING, MODERATE AMOUNT OF BRIGHT RED BLOOD NOTED IN DEPENDS. DR. VIGIL NOTIFIED.
--- NOTE | 2017-02-28 06:03 | NUR ---
DR. VIGIL ON UNIT TO SEE PATIENT AT THIS TIME.
[2017-02-28 07:49] LABS: HEMATOCRIT 31.7 % (42.0-52.0); HEMOGLOBIN 10.8 g/dl (14.0-18.0)
[2017-02-28 08:33] VITALS: BP 154/72
--- NOTE | 2017-02-28 10:46 | NUR ---
SW SPOKE WITH ABOUT DISCHARGE PLANS. SEE INDIVIDUAL NOTE.
--- NOTE | 2017-02-28 12:45 | NUR ---
02/27/17 Afternoon [facility] the [facility] Patient was in attendence for group but did not participate. Patient was asleep in his chair
--- NOTE | 2017-02-28 12:56 | NUR ---
Goals,Exercise and Crafts for the tree. patient was in attendence for a short period of time. Patient was yelling out and making noises. Patient was asked several times to please stop he was being disrupted but patient refused. Patient was taken out of room to the quiet room to settle himself
--- NOTE | 2017-02-28 13:30 | NUR ---
PHYSICAL THERAPY Unable to arouse patient with verbal and tactile stim as well as sternal rub. PAtient was medicatd earlier this date for aggitation. Will attempt at a later date. Thank you for this referral. raghavendra Person PT
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
--- NOTE | 2017-02-28 16:51 | NUR ---
DEPAKOTE CHANGED TO SPRINKLES PER DR. HOOK.
[2017-02-28 21:39] VITALS: BP 142/87
--- NOTE | 2017-03-01 00:32 | NUR ---
PT ALRT TO PERSON ONLY. PLEASANTLY CONFUSED. VISUAL HALLUCINATIONS. PT TALKING TO UNSEEN OTHERS. CALM AND RESTLESS. NO ASSUALTIVE OUTBURSTS NOTED. NO COMBATIVENESS. NO BLOOD NOTED IN DEPENDS AT THIS POINT DURING THE SHIFT. PT RESTING QUIETLY IN BED AT THIS TIME. FALL PRECAUTIONS AND Q15 MINUTE SAFETY CHECKS MAINTAINED. DRESSING REMAINS INTACT TO RIGHT HIP. NO PHYSICAL OR VERBAL AGGRESSION NOTED. MEDICATION COMPLIANT. SEE [facility] FLOWSHEET FOR SPECIFIC MONITORING.
--- NOTE | 2017-03-01 02:29 | NUR ---
MILIEU STATED WHEN PROVIDING HOC TO PT, PT WOULD GRAB THEM INAPPROPRIATELY. MULTIPLE REDIRECTIONS NEEDED AND INEFFECTIVE. PT NOTED TO GRAB A STAFF MEMBERS BUTTOCKS AND ANOTHER STAFF MEMBERS BREAST.
--- NOTE | 2017-03-01 02:48 | NUR ---
24 HR chart check completed.
--- NOTE | 2017-03-01 06:48 | NUR ---
PT SLEPT APPROXIMATELY 5.5 HOURS THIS SHIFT. NO S/S OF DISTRESS. NO C/O PAIN.
[2017-03-01 08:06] VITALS: BP 140/78
--- NOTE | 2017-03-01 08:41 | NUR ---
02/28/17 Afternoon Group [employer] for tree Patient was in attendence but did not participate. Patient was asleep in his chair.
--- NOTE | 2017-03-01 09:30 | NUR ---
PT MOANING AND YELLING OUT, WHEN ASKED IF HE WAS IN PAIN PT POINTED TO HIP UNABLE TO RATE PAIN ON SCALE OF 1-10. PRN TYLENOL GIVEN PER ORDER. PREVIOUS ORDER D/C TRAMADOL DISCUSSED WITH DR. TALLEY, STATED HE WOULD REVIEW.
--- NOTE | 2017-03-01 10:50 | NUR ---
PT RESTING QUIETLY AT THIS TIME, REPOSITIONED FOR COMFORT. PRN TYLENOL EFFECTIVE.
--- NOTE | 2017-03-01 11:26 | NUR ---
Goals, remenissing and craft Patient asleep throughout morning group. Will attempt for afternoon group.
--- NOTE | 2017-03-01 13:03 | NUR ---
PT YELLING OUT "OH DEAR GOD, JUST LET ME " PT ASKED WHY HE WANTS TO PT REPLIED "I HURT, OMG YOUR TRYING TO KILL ME". PT ASKED IF HIS HIP HURT AND HE THEN YELLED "OH GOD YES" UNABLE TO PROVIDE NUMERICAL SCALE. JOSÉ MIGUEL GR ADMINISTERD
--- NOTE | 2017-03-01 13:32 | NUR ---
PT CONTINUES TO YELL OUT INTERMITTENTLY, FREQUENTLY DISROBING AND MASTURBATING. UNABLE TO RESPOND APPROPRIATELY TO QUESTIONS, MINIMALLY ABLE TO MAKE NEEDS KNOWN. FOOD AND FLUIDS ENCOURAGED CONSUMED 25% OF BREAKFAST AND LUCH SPITTING OUT FOOD AT STAFF AT TIMES. UN ABLE TO COMPHREHEND MED EDUCATION OR 1-1. PT UNABLE TO BE REORIENTED TO PLACE AND TIME ST, LT MEMORY GAPS ALERT TO PERSON ONLY. CONTINUE TO EVALUATE FOR SIDE EFFECTS OF MEDICATION, CONTINUE TO MONITOR FOR AGRESSIVE, COMBATIVE BEHAVIORS, CONTINUE POC
--- NOTE | 2017-03-01 13:38 | NUR ---
24 HR chart check completed.
--- NOTE | 2017-03-01 13:45 | NUR ---
PT RESTING IN BED AT THIS TIME. PT TOLERATED DRESSING CHANGES PER ORDER. PRN NORCO EFFECTIVE
--- NOTE | 2017-03-01 14:20 | NUR ---
Patent not available for Occupational Therapy evaluation as he was unable to be aroused. OTR will recheck at a later date. Jennifer Houser OTR/l
--- NOTE | 2017-03-01 14:25 | NUR ---
Wreaths for the tree and conversation. Patient did not attend group this afternoon. Patient was in quiet room yelling out and being disruptive.
--- NOTE | 2017-03-01 14:47 | NUR ---
PHYSICAL THERAPY Unable to arouse patient for PT evaluation: attempted verbal and tactile stimuli as well as sternal rub: unable to follow commands or stay awake. Mahsa Person,PT
--- NOTE | 2017-03-01 15:31 | NUR ---
PT LYING IN BED TALKIG IN HIS SLEEP AND SAID IT WAS NOT OK BUT THEN WAS SNORING. SW UNABLKE TO AROUSE PT.
--- NOTE | 2017-03-01 17:54 | NUR ---
PT EXHIBITING POOR APPETITE THROUGHOUT SHIFT, REFUSING SUPPER AND ONLY CONSUMING 25% OF BOTH BREAKFAST AND LUNCH. MED COMPLIANT WITH COAXING. SEE FLOW SHEET FOR SPECIFIC MONITORING. PT NOT COMBATIVE AT THIS TIME
[2017-03-01] MEDS ORDERED: KETOCONAZOLE S120 M1 T (18:16)
[2017-03-01 19:58] VITALS: BP 144/78
--- NOTE | 2017-03-01 20:04 | NUR ---
24 HR chart check completed.
--- NOTE | 2017-03-01 21:26 | NUR ---
PT YELLING OUT WHEN ASSESSED PT HE WAS HOLDING ONTO THE SIDE RAIL OF HIS BED SCREAMING OUT "OH GOD", "OH PLEASE". WHEN PT WAS ASKED IF HE WAS HAVING ANY PAIN HE WOULDNT ANSWER. PT JUST GROANED. PRN NORCO GIVEN AT THIS TIME FOR HIP PAIN D/T RECENT HIP FRACTURE AND SURGERY. WILL MONITOR EFFECTS OF MEDICATION.
--- NOTE | 2017-03-01 22:26 | NUR ---
PT RESTING QUIETLY AT THIS TIME. NO S/S OF DISTRESS OR PAIN NOTED. PRN EFFECTIVE.
--- NOTE | 2017-03-02 03:51 | NUR ---
PT YELING OUT. WHEN ASKING PT IF HE WAS IN PAIN PT REPLIES WITH MOANING AND GROANING. PT HOLDING ONTO BED RAIL. PRN NORCO GIVEN AT THIS TIME D/T PAIN FROM RECENT HIP FRACTURE AND SURGERY. WILL MONITOR PT FOR EFFECTIVENESS OF MEDICATION.
--- NOTE | 2017-03-02 04:50 | NUR ---
PRN EFFECTIVE. PT RESTING QUIETLY IN BED. WILL CONTINUE TO MONITOR EFFECTIVENESS OF MEDICATION.
--- NOTE | 2017-03-02 06:48 | NUR ---
PT SLEPT ABOUT 3 HOURS INTERRUPTED. NO S/S OF DISTRESS NOTED. PT DID HAVE HIP PAIN. FALL PRECAUTIONS MAINTAINED. Q15 MINUTE SAFETY CHECKS MAINTAINED. LABILE MOOD. CONFUSED. NO HALLUCINATIONS NOTED. NO DELUSIONS NOTED. PT CONTINUED TO YELL ON AN OFF ALL SHIFT. DRESSING REMAINS TO WOUNDS. WITHDRAWN TO SELF. SEE [facility] FLOWSHEET FOR SPECIFIC MONITORING. PT WAS NOTED TO HAVE HANDS IN DEPENDS AND REDIRECTED WITHOUT DIFFICULTY. NO VERBAL OR PHYSICAL AGGRESSION NOTED.
[2017-03-02 08:26] VITALS: BP 126/63
--- NOTE | 2017-03-02 10:44 | NUR ---
DR TALLEY ON UNIT TO SEE PATIENT
--- NOTE | 2017-03-02 11:00 | NUR ---
PATIENT MEDICATED WITH NORCO FOR COMPLAINT OF RIGHT HIP PAIN. MEDICATION WITH EFFECTIVE RESULTS. RESTING IN [facility] AT THIS TIME
--- NOTE | 2017-03-02 17:15 | NUR ---
MEDICATED WITH NORCO FOR COMPLAINT OF RIGHT HIP PAIN. MEDICATION WITH EFFECTIVE RESULTS AT THIS TIME
--- NOTE | 2017-03-02 18:31 | NUR ---
PATIENT YELLING OUT. REPOSITIONED FOR PROPER BODY ALIGNMENT, COMFORT, AND PRESSURE RELIEF WITH GOOD EFFECT. PATIENT NO LONGER YELLING OUT AT THIS TIME. FAMILY AT BEDSIDE FOR VISIT. TO NURSES STATION WITH MULTIPLE REPETIVE COMPLIANTS ALREADY ADDRESSED BY ARCENIO.
--- NOTE | 2017-03-02 18:35 | NUR ---
PATIENT ALERT WITH CONFUSION. PATIENT WITH ST/LT MEMORY DEFICITS. RESPIRATION NONLABORED. NO DISTRESS NOTED. PATIENT SEXUALLY INAPPROPRIATE AND REDIRECTED ON MULTIPLE OCCASIONS TO REMOVE HANDS OUT OF PANTS IN DINING AREA. PATIENT ISOLATIVE, WITHDRAWN, AGITATED, AND RESTLESS. PATIENT DRESSING CHANGE TO RIGHT HIP. RIGHT HIP CLEANSED WITH SOAP AND WATER AND INCISION COVERED WITH DRY DRESSING. NO DRAINAGE NOTED TO INCISION. INCISION WELL APPROXIMATED. PATIENT RESISTIVE WITH CARE AT TIMES AND WOULD STIFFEN BODY WHEN STAFF WOULD PROVIDE ADL'S PATIENT MOANING THROUGHOUT SHIFT WHEN BEING TOUCHED OR IN PAIN. PAIN MEDICATION GIVEN THROUGHOUT SHIFT. PATIENT WITH NO HALLUCINATIONS OR DELUSIONS. POOR APPETITE. SEE [facility] FLOW SHEETS FOR SPECIFIC MONITORING. Q 15 MINUTE CHECKS MAINTAINED. FAMILY PRESENT AT BEDSIDE AT THIS TIME.
--- NOTE | 2017-03-02 18:49 | NUR ---
Shift chart check completed.
[2017-03-02 20:00] VITALS: BP 142/82
--- NOTE | 2017-03-02 22:30 | NUR ---
PT MOANING AND GROANING. YELLING "OH GOD" GRIMACING IF IN PAIN. UNABLE TO VERBALIZE PAIN. INCREASED ANXIETY NOTED. PRN ATIVAN AND NORCO GIVEN. PT REPOSITIONED AND 1:1 PROVIDED AND INEFFECTIVE. WILL MONITOR PT FOR EFFECTIVENESS OF MEDICATION. MED COMPLIANT WITH DIFFICULTY. SPITTING OUT WATER. NONVERBAL AT THIS TIME. MOANS AND YELLS OUT REPETITIVELY. UNABLE TO ASSESS ORIENTATION AND THOUGHT PROCESS AT THIS TIME. NO HALLUCINATIONS OR DELUSIONS NOTED. Q15 MINUTE SAFETY CHECKS AND FALL PRECATIONS MAINTAINED. SEE [facility] FLOWSHEETS FOR SPECIFIC MONITORING.
--- NOTE | 2017-03-02 23:45 | NUR ---
PT CONTINUES TO YELL OUT. PLACED IN QUINCY CHAIR IN QUIET ROOM NEXT TO NURSES STATION. WILL CONTINUE TO MONITOR EFFECTIVENESS OF MEDICATION.
--- NOTE | 2017-03-03 00:21 | NUR ---
PT CONTINUES TO YELL OUT. COMBATIVE WITH STAFF WHEN REPOSITIONING AND PROVIDING HOC. 1:1 PROVIDED AND INEFFECTIVE. MUSIC THERAPY PROVIDED AND INEFFECTIVE. REMAINS NONVERBAL WITH WORDS. WHEN PT IS ASKED IF THERE WAS SOMETHING WE CAN HELP HIM WITH OR IF HE IS IN PAIN PT WILL SCREAM OUT LOUDER. PRN ANGELIQUEDON GIVEN AT 0016. WILL CONTINUE TO MONITOR PT FOR EFFECTIVENESS OF MEDICATION.
--- NOTE | 2017-03-03 01:15 | NUR ---
PRN EFFECTIVE. PT RESTING QUIETLY AT THIS TIME.
--- NOTE | 2017-03-03 04:23 | NUR ---
24 HR chart check completed.
--- NOTE | 2017-03-03 05:12 | NUR ---
PRN REMAINS EFFECTIVE AT THIS TIME. BLOOD DRAW COMPLETED FOR VPA LEVEL WITHOUT DIFFICULTY. NO SCREAMING OUT AT THIS TIME. NO S/S OF DISTRESS NOTED. NO S/S OF PAIN NOTED. PT ATTEMPTED TO PULL DEPEND OFF, REDIRECTED BY STAFF. NO SEXUAL PREOCCUPATION NOTED. SLEPT APPROXIMATELY 5 HOURS THIS SHIFT AFTER PRN ADMINISTERED.
[2017-03-03 07:47] VITALS: BP 142/78
--- NOTE | 2017-03-03 10:00 | NUR ---
DR TALLEY ON UNIT TO SEE PATIENT.
--- NOTE | 2017-03-03 12:28 | NUR ---
PATIENT IS ALERT TO VOICE ONLY, CONUFUSED AND LETHARGIC. MOUTH CARE PROVIDED X 2, DRY MUCUS MEMBRANES NOTED. PATIENT HAD DIFFICULTLY TALKING MEDICATIONS WITH MUCH ENCOURAGEMENT TO SWALLOW. PATIENT ASSISTED TO BED VIA MECHANICAL LIFT, 2 PERSON CARE FOR ALL ACTIVITIES OF DAILY LIVING. INCONTIENT OF BOWEL AND BLADDER. POOR APPETITE. VITALS: 98.4, 18, 93%RA, 158/82 MANUAL AND PULSE 88. NO YELLING OUT OR MOANING WHILE IN BED. DENIES ANY HALLUCINATIONS, DELUSIONS, HI/SI. CONTINUE TO MONITOR FOR PAIN. Q 15 MINUTE SAFETY CHECKES NOTED. CONTINUE TO MONITOR FOR INAPPROPRIATE BEHAVIORS AND AGGRESSION. DR MADRID UPDATED ON PATIENT'S CONDITION.
--- NOTE | 2017-03-03 16:09 | NUR ---
Shift chart check completed.
--- NOTE | 2017-03-03 17:13 | NUR ---
PATIENT CONTINUE TO BE LETHARGIC, UNABLE TO VOICE NEEDS. TURNED AND REPOSITIONED Q 2 HRS FOR SKIN PREVENTION AND COMFORT. VOIDED TWICE THE SHIFT. POOR PO INTAKES FOR ALL MEALS. 10CC OF HEALTH SHAKES WITH LITTLE SPOON SIPS. COUGHED TWICE. VERBAL PROMPTING TO SWALLOW WITH FLUIDS. DR. MADRID UPDATED. SPEECH CONSULT IN PLACE AND LABS TO BE DRAWN IN AM.
[2017-03-03 20:10] VITALS: BP 154/84
--- NOTE | 2017-03-04 00:13 | NUR ---
24 HR chart check completed.
--- NOTE | 2017-03-04 00:32 | NUR ---
PT WAS IN HIS BED AT THE BEGINNING OF THE SHIFT NAPPING INTERMITTENTLY. OCCASIONAL MOANING & YELLIING OUT. TOOK HS MEDICATIONS WITH MUCH ENCOURAGEMENT CRUSHED & MIXED IN APPLESAUCE. TOOK 240 CC OF WATER VIA SYRINGE WITH MUCH PROMPTING & SLOW TO SWALLOW. UNABLE TO ACCESS ORIENTATION. PT HAS BEEN NOTED TO PLAY WITH HIS GENITEALS FREQUENTLY. INCONTINENT OF URINE. WHEN ASKED IF HE WAS IN PAIN HE DID SAY "YAH" MEDICATED WITH NORCO 1 TAB @ 0775. PT UNABLE TO STATE WHERE HIS PAIN WAS LOCATED OR RATE HIS PAIN. NORCO HAS BEEN EFFECTIVE & PT HAS SLEPT QUIETLY IN THE QUINCY CHAIR PAST 2450.
[2017-03-04 05:31] LABS: BUN 24 mg/dl (7-24); CHLORIDE 107 mmol/L (98-107); CREATININE 1.17 mg/dL (0.70-1.30); POTASSIUM 4.3 mmol/L (3.5-5.1); SODIUM 143 mmol/L (136-145)
--- NOTE | 2017-03-04 06:14 | NUR ---
PT HAS SLEPT QUIETLY THROUGHOUT THE SHIFT PAST 0 WITH A FEW BRIEF AWAKENINGS WHEN MOVING AROUND.
--- NOTE | 2017-03-04 06:57 | NUR ---
PT TOOK AM MEDS CRUSHED & MIXED IN APPLESAUCE. GIVEN ANOTHER 120 CC OF WATER VIA SYRINGE. PT SPITTING WATER AT TIMES & YELLING & MOANING BUT DOES NOT SPEAK WORDS.
[2017-03-04 07:37] VITALS: BP 111/77
--- NOTE | 2017-03-04 10:47 | NUR ---
PATIENT MOANING AND GROANING LOUDLY BUT UNABLE TO FORM A WORD. UNABLE TO SWALLOW SMALL SIP OF WATER. UNABLE TO ADMINISTER ANY PO AM MEDICATIONS. UNABLE TO EAT BREAKFAST D/T DYSPHAGIA. ASSISTED TO BED, INCONTINENCE CARE PROVIDED. RESPOSITIONED FOR PROPER BODY ALIGNMENT, PRESSURE RELIEF, AND COMFORT. AUNDREA NAVARRETE AT BEDSIDE TO ASSESS PATIENT; UPDATED ON ALL OF ABOVE AND THAT PT HAS HAD NO SUBSTANTIAL NUTRITION/FLUID INTAKE IN AT LEAST 48 HRS AND CONTINUING AND MUCUS MEMBRANES REMAIN DRY. IV FLUIDS REQUESTED BY THIS RN. AUNDREA NAVARRETE STATES WILL ENTER NEW ORDERS. HEEL PROTECTOR BOOTS PLACED ON PT PER ORDERS. RESPIRATIONS EASY AND EVEN.
--- NOTE | 2017-03-04 11:08 | NUR ---
MARIA ISABEL [facility] she states that she cannot guarantee that pt. can be accepted back. The SW did update according to Anne Marie the pasrr. Referrals to be sent out in case O. of does not accept him back.
--- NOTE | 2017-03-04 11:17 | NUR ---
Patient unable to arouse to participate in Occupational Therapy this date. Patient unable to open eyes, follow simple commands. OTR will attempt at a later date. Jennifer Houser OTR/tawny
--- NOTE | 2017-03-04 11:31 | NUR ---
PHYSICAL THERAPY PAtient not approrpaite for PT this date. PAtient Unable to open eyes and participate with both tactile and verbal stimulus as well as sternal rub. Nurses aware. Thank you for this referral. Mahsa Person,PT
--- NOTE | 2017-03-04 12:31 | NUR ---
KASSI FROM ON UNIT TO ASSESS PATIENT AT THIS TIME. UNABLE TO ASSESS PATIENT D/T CURRENT STATUS.
--- NOTE | 2017-03-04 12:37 | NUR ---
IV STARTED TO LEFT HAND AT THIS TIME. IV FLUIDS RUNNING.
--- NOTE | 2017-03-04 13:01 | NUR ---
Goals,Exercise & [place] [employer] Patient was not in attendence for group. Patient was in the shower.
--- NOTE | 2017-03-04 13:18 | NUR ---
SPEECH PATHOLOGY Orders were received for clinical swallow eval. to assess skills due to reports of pocketing and difficulty swallowing. Patient was not alert. Frequent moaning and hollering were elicited. Patient did not arouse to verbal or tactile stimulation. Due to patient's status, assessment was not able to be completed. Will attempt again at a later time. Patient's nurse was present during assessment and aware. Thank you for this referral. KASSI MENDOZA MSCCC-COUNTY SUPERVISOR
--- NOTE | 2017-03-04 13:27 | NUR ---
IN FOR VISIT AT THIS TIME, REVIEWED MEDICATIONS, UPDATED ON WOUND HEALING. CONVERSATION WITNESSED BY SW. Hernandez
--- NOTE | 2017-03-04 14:11 | NUR ---
SW met with pt. and pt . pt was irritable and was combing pt. hair. pt states that "pt. has not had his hair washed in a long time". pt. appears to be greiivng and not sure what to expect after pt. goes to a NH for "hpefuly, a short stay". pt states that she has taken care of pt. for the lst 4 yrs. pt. states that pt. doctor told her a few years back that he thought pt. was sufferrring from "lewy body" Dementia and pt. is reportedly beginning believe that this may be the vcase. pt. did ask appropriate questions and SW answered wid fe's concerns about the NH referrals, in adddition to the SW getting Nurse Mary Beth to address the medication questions and concerns. pt. is ocncerned about pt. being on Depakote again and states "he did well on clonipine". Nurse Mary Beth aid she would make the doctor aware that pt. did not do well on Depakote, but was doing better on the clonipine. pt also asking about pt. having special shampoo and whether or not his hair can be washed with it. SW to address with nursing and Dr. hill.
[2017-03-04 15:15] VITALS: BP 141/75
[2017-03-04 17:47] VITALS: BP 128/74
--- NOTE | 2017-03-04 18:00 | NUR ---
CALLED REGARDING TEMP OF 100.5 AND PT FEELS WARM AND FLUSH TO TOUCH. IN AT BEDSIDE FOR VISIT AND REQUESTING TO SPEAK TO MEDICAL DOCTOR. STATES AUNDREA GREENWOOD HAS LEFT FOR THE DAY AND STATES HE MAY ORDER TYLENOL TO BE GIVEN RECTALLY. ADVISED THAT WE DO NOT TYPICALLY GIVE RECTAL MEDICATIONS ON THIS UNIT AND THAT I WOULD CALL BRAULIO,DIRECTOR FOR CLARIFICATION. CALLED BRAULIO,DIRECTOR WHO STATES TO ASK IF THERE IS ANYTHING THAT CAN BE GIVEN IV INSTEAD OF RECTAL. CALLED BACK AND REQUESTED IV MEDICATION INSTEAD OF RECTAL. AGAIN, REQUESTED FOR MEDICAL DOCTOR TO COME TO UNIT TO SPEAK WITH ; STATES "I'LL SEE IF I CAN FIND SOMEONE."
--- NOTE | 2017-03-04 18:15 | NUR ---
BRAULIO,DIRECTOR UPDATED ON STATUS.
[2017-03-04 21:26] VITALS: BP 143/71
--- NOTE | 2017-03-04 22:00 | NUR ---
PT TEMP AT 1999 WAS 98.5. PT WAS RESTING FREQUENTLY MOANING & GROANING LOUDLY BUT COULD NOT STATE ANY WORDS. UNABLE TO ANSWER ANY QUESTIONS OR ACCESS IF PT IS IN PAIN. ATTEMPTED TO PUT A FEW DROPS OF WATER IN PTS MOUTH WITH A SYRINGE. HE DID SWALLOW ONCE BUT CLAMPED MOUTH DOWN & PUSHED SYRINGE AWAY SEVERAL TIMES WHEN IT TOUCHED HIS LIP. UNABLE TO ADMINISTER HS MEDICATIONS DUE TO PTS DYSPHAGIA. INCONTINENT OF LARGE AMOUNT OF URINE & HYGIENE PROVIDED BY 2 STAFF ASSISTS. REPOSTIONED ON Q 2 HOUR TURNS. IV FLUIDS CONTINUE. PT WAS MOVED TO A QUINCY CHAIR & PLACED CLOSER TO NURSES STATION.
--- NOTE | 2017-03-04 22:06 | NUR ---
24 HR chart check completed.
--- NOTE | 2017-03-05 01:32 | NUR ---
PT HAS CONTINUED TO MOAN & YELL LOUDLY & IS UNABLE TO ANSWER QUESTIONS. MUCUS MEMBRANES VERY DRY. IV CONTINUES TO INFUSE. PT APPEARS TO MOAN MORE FREQUENTLY & IS RESTLESS. MEDICATED WITH ATIVAN 1 MG IM @ 0110 WHICH HAS BEEN EFFECTIVE & PT IS PRESENTLY RESTING QUIETLY. TEMP TAKEN @ 0045 WAS 99.3.
[2017-03-05 07:22] LABS: BASO % 0.2 % (0.0-1.0); EOS % 0.3 % (1.0-4.0); HEMATOCRIT 33.6 % (42.0-52.0); LYMPH # 1.9 10*3/uL (1.3-4.4); LYMPH % 16.8 % (27.0-41.0); MEAN CELL VOLUME 95.2 fl (80.0-94.0); MEAN CORPUSCULAR HGB 31.2 pg (27.0-31.0); MEAN CORPUSCULAR HGB CONC 32.7 g/dl (33.0-37.0); MEAN PLATELET VOLUME 10.3 fl (9.6-12.3); MONO # 1.1 10*3/uL (0.1-1.0); MONO % 9.9 % (3.0-9.0); NEUT # 8.2 10*3/uL (2.3-7.9); PLATELET COUNT AUTOMATED 244 10*3/uL (130-400); RED BLOOD COUNT 3.53 10*6/uL (4.50-5.90); RED CELL DISTRI WIDTH 14.3 % (0-14.5); WHITE BLOOD COUNT 11.4 10*3/uL (4.8-10.8)
[2017-03-05 08:08] LABS: ALBUMIN 2.7 gm/dl (3.1-4.5); ALKALINE PHOSPHATASE 90 U/L (45-117); BUN 26 mg/dl (7-24); CHLORIDE 110 mmol/L (98-107); CREATININE 1.12 mg/dL (0.70-1.30); POTASSIUM 3.9 mmol/L (3.5-5.1); SGOT/AST 30 IU/L (3-35); SGPT/ALT 23 U/L (12-78); SODIUM 146 mmol/L (136-145); TOTAL PROTEIN 6.5 gm/dL (6.4-8.2)
[2017-03-05 08:23] VITALS: BP 117/74
--- NOTE | 2017-03-05 08:39 | NUR ---
03/04/17 Afternoon Group [place]ch Patient was in attendence for group but did not participate. Patient was in his chair moaning and yelling out. Patient was removed to quiet room and nurse notified
--- NOTE | 2017-03-05 08:45 | NUR ---
SPEECH PATHOLOGY Clinician arrived in patient's room to attempt assessment this am. Multiple staff members were present in the room and reported that patient was not awake and alert for evaluation of swallowing. His condition remains poor and he has not been able to eat or take medications due to status. Will continue to monitor patient and proceed with assessment as appropriate. KASSI MENDOZA MSCCC-LIFE INSURANCE SALESPERSON
--- NOTE | 2017-03-05 09:03 | NUR ---
Maury is noted to exhibit a temperature elevation this morning. WBC count is also noted to be elevated. Informed N.P and Dr. Lauren. Order received to straight cath and obtain urine sample for testing. Straight cathed per policy and specimen was obtained and sent to lab. Urine was noted to be bright yellow in color and slow to flow from catheter. Maury tolerated procedure with no complaints. It should be noted that prior to this Maury was medicated with ativan 1 mg IM @ 0814 for increased agitation and restlessness after 1:1 interaction failed to calm him. N.P and Dr. Lauren in to see him this morning.
--- NOTE | 2017-03-05 09:21 | NUR ---
SW sent out referrals to: Sonia Meza, [facility], Rafael Shetty, [facility], [facility], [facility] and [facility].
[2017-03-05 10:02] LABS: BILIRUBIN 1+ (NEGATIVE); BLOOD 1+ (NEGATIVE); CLARITY CLEAR (CLEAR); COLOR YELLOW (YELLOW); GLUCOSE NEGATIVE (NEGATIVE); KETONE 2+ (NEGATIVE); LEUKO ESTERASE NEGATIVE (NEGATIVE); NITRITE NEGATIVE (NEGATIVE); PH 5.5 (5.0-9.0); SPECIFIC GRAVITY 1.025 (1.005-1.030)
[2017-03-05 11:06] LABS: BACTERIA 2+; MUCOUS 1+
--- NOTE | 2017-03-05 11:24 | NUR ---
PHYSICAL THERAPY PAtient pending transfer to medical floor. Mahsa Person,PT
--- NOTE | 2017-03-05 11:32 | NUR ---
Joana from [facility] and MR delfina kennedy
[2017-03-05] MEDS ORDERED: NAMENDA10 MG PO (11:39)
[2017-03-05] MEDS ORDERED: PROVERA10 MG PO (11:40)
--- NOTE | 2017-03-05 12:51 | NUR ---
MARIA ISABEL spoke with Dr. Hill in regards to pt 's concern about pt taking Depakote and Dr. Hill states he was planning on holding the depakote and as for the special shampoo, Dr. hill said his hiar can be shampooed with it.
--- NOTE | 2017-03-05 12:54 | NUR ---
Sandra from [facility] asked about d/c date, notified her that pt. is being transferred to the medical floor.
--- NOTE | 2017-03-05 13:13 | NUR ---
Orders received to discharge Maury from [facility] and follow up will continue with medical physician on due to medical issues. Dr. Lauren was notified and orders for discharging medications were received by charge nurse. Refer to disposition for specific discharge instructions and medications. Wound care completed and dressings were changed. Wound photos completed prior to departure. Verbal report provided to receiving RN on . Vi DICKENS was notified of discharge from [facility]. Maury did leave this unit on this date @ approximately 1:10 pm discharged. He is accompanied by staff and is being transported via bed to . Prior to his departure all personal items were returned.
--- NOTE | 2017-03-11 14:35 | NUR ---
Anne Marie, [facility], said they are declining gorge.
== END 2017-03-05 13:10 | disposition short-term general hospital (02) | DRG 56 ==
LOC: 3N 18:23
PROVIDERS: Registered Nurse; Student in an Organized Health Care Education/Training Program; ADMIT Psychiatry & Neurology Psychiatry
DX: G30.9 Alzheimer's disease, unspecified (principal); E43 Unspecified severe protein-calorie malnutrition; F02.81 Dementia in other diseases classified elsewhere, unspecified severity, with behavioral disturbance; D64.9 Anemia, unspecified; I48.0 Paroxysmal atrial fibrillation; G62.9 Polyneuropathy, unspecified; F33.3 Major depressive disorder, recurrent, severe with psychotic symptoms; R41.89 Other symptoms and signs involving cognitive functions and awareness; N39.41 Urge incontinence; R74.8 Abnormal levels of other serum enzymes; N32.81 Overactive bladder; R73.9 Hyperglycemia, unspecified; N18.3 Chronic kidney disease, stage 3 (moderate); E03.9 Hypothyroidism, unspecified; M19.90 Unspecified osteoarthritis, unspecified site; I12.9 Hypertensive chronic kidney disease with stage 1 through stage 4 chronic kidney disease, or unspecified chronic kidney disease; K21.9 Gastro-esophageal reflux disease without esophagitis; Z85.46 Personal history of malignant neoplasm of prostate; I25.2 Old myocardial infarction; Z95.5 Presence of coronary angioplasty implant and graft; Z87.891 Personal history of nicotine dependence; Z88.8 Allergy status to other drugs, medicaments and biological substances; Z79.899 Other long term (current) drug therapy; Z68.37 Body mass index [BMI] 37.0-37.9, adult

== ENCOUNTER 2017-03-05 13:28 | Inpatient (IN) | payer MEDICARE, OTHER ==
[~2017-03-05] VITALS: Ht 175.3 cm; Wt 115.4 kg
--- NOTE | ~2017-03-05 | CON ---
[place], [place] REPORT OF CONSULTATION NAME: LAYLA ZALDIVAR UNIT #: [id number] ROOM: 505 DOCTOR: FEDE HOOK MD BIRTHDATE: [birth year] DOS: 03/06/2017 CHIEF COMPLAINT: "Oh, it hurts. HISTORY OF PRESENT ILLNESS: This is a 76-year-old white male known to me from his recent admission to the [facility]. The patient had been here in November, , went home with his ; subsequently fell around Thanksgiving breaking his hip. The patient was then admitted to [facility] for hip surgery and then taken to the [facility] for rehab. The patient only lasted there for a few hours until his behavior became problematic due to altered mental status and severe agitation and sexual inappropriate behavior. He was sent here to [facility] for further evaluation. The patient had ripped his Mccartney catheter out on at least two separate occasions. While on the psychiatric unit, the patient was found to be very sexually inappropriate, both through comments and through touch. He was also excessively masturbating. The patient was started on Depakote to decrease his impulsivity and then later on Provera to decrease his libido. However, over the last several days prior to his medical admission, the patient became more lethargic and was not eating and drinking well. On the day of his discharge from the [facility] and admission to the medical floor, the patient was found to be almost nonresponsive. His white count was elevated and it was felt that his medical needs outweighed his psychiatric. The patient was admitted then to the medical floor for further evaluation and treatment. From a psychiatric standpoint, I did discontinue his Depakote as his 's had said to us that he has had a poor reaction to this in the past. MENTAL STATUS EXAMINATION: This morning the patient is definitely more alert and conversant than he was yesterday. His responses still tended to be short and simple. He did report pain, but was not able to fully elaborate what the pain or where the pain was. At times he did not respond to questions. He did moan and was able to move all of his extremities. DIAGNOSIS: Impulse control disorder. PLAN: At this point, I would list DEPAKOTE as a drug allergy given the fact that he responded so poorly to it. His valproic acid level on March 03 was 67.1. I will go ahead and check a serum ammonia level. Upon admission to the [facility], it was less than 10, just to make certain that it is not elevated. I will also check a Neurontin level. At this point, I will maintain him just on the Provera for the sexual inappropriate behavior and the Exelon patch. Once he stabilizes, unless his behaviors become so problematic, a return back to a rehab facility to gain strength would be warranted. [place], [place] REPORT OF CONSULTATION NAME: ZALDIVARLAYLA RUSHING Leena UNIT #: [id number] ROOM: 505 DOCTOR: FEDE HOOK MD BIRTHDATE: [birth year] FEDE HOOK MD CM:CONSTR:REPORT OF CONSULTATION [id number] 03/06/17 1004 interface
--- NOTE | 2017-03-05 13:00 | NUR ---
A 76, admitted to , under the services of THANG Langston DO with a diagnosis of Chronic Kidney Disease. Chief complaint is altered mental status. Patient arrived via bed from OR. Monitor applied. Initial assessment completed. Vital signs taken and recorded. THANG LANGSTON DO notified of admission to the unit. Orders received. See assessment for past medical history, medications and allergies. Patient and/or family oriented to unit. [facility] visitation policy reviewed. Clothing/patient valuable form completed. Patients stated that she brought his glasses to [facility] and left them at the front loader residential driver. Patient did not arrive with them and I contacted [facility] regarding this matter. VIJAY SIFUENTES J
[2017-03-05 13:05] VITALS: BP 134/66
[~2017-03-05 13:28] MED LIST changes: +KETOCONAZOLE S120 M1 T; +NAMENDA10 MG PO; +PROVERA10 MG PO
--- NOTE | 2017-03-05 13:54 | NUR ---
IV MORPHINE WAS EFFECTIVE. PATIENT HAS CALMED DOWN. HIS TRIED TO SWAB HIS MOUTH WITH COOL WATER AND PLACED A FEW DROPS IN HIS MOUTH AND TRIED TO GET HIM TO SWALLOW IT, BUT HE WOULDN'T.
--- NOTE | 2017-03-05 13:59 | NUR ---
A ONE TIME DOSE OF IV MORPHINE WAS GIVEN TO PATIENT BECAUSE HE WAS CONTINUOUSLY MOANING AND THRASHING AROUND IN OBVIOUS DISTRESS. WILL MONITOR.
--- NOTE | 2017-03-05 15:16 | NUR ---
PHYSICAL THERAPY Nursing screen received. PAtient just transferred from our BHU unit. Medically not appropriate at this time. Please order PT when medically appropriate. thank you. Mahsa Leo,PT
--- NOTE | 2017-03-05 15:33 | NUR ---
LEFT MESSAGE FOR DR. HOOK TO CALL BACK. NEEDS NOTIFIED OF CONSULT. WILL FOLLOW UP.
--- NOTE | 2017-03-05 15:34 | NUR ---
LEFT MESSAGE WITH PATIENTS , GWEN TO REMIND HER TO BRING LIVING WILL TO HOSPITAL SO WE CAN CONFIRM PATIENTS CODE STATUS.
--- NOTE | 2017-03-05 15:35 | NUR ---
U DID BRING PATIENTS GLASSES TO 5E. PLACED THEM IN PATIENTS NIGHTSTAND.
--- NOTE | 2017-03-05 15:36 | NUR ---
DR. HOOK RETURNED CALL AND WAS NOTIFIED OF CONSULT.
--- NOTE | 2017-03-05 15:43 | NUR ---
SPOKE TO [facility] REGARDING IV MEDICATIONS BECAUSE WE COULD NOT GET PATIENT TO SWALLOW ANY WATER. PATIENT MADE NO ATTEMPT AND MOANED AND WINCED WHEN WE PLACED THE SPONGE NEAR HIS MOUTH.
[2017-03-05 16:00] VITALS: BP 127/78
[2017-03-05 20:00] VITALS: BP 144/86
[2017-03-06] VITALS: BP 138/85
--- NOTE | 2017-03-06 04:14 | NUR ---
24 HR chart check completed.
[2017-03-06 07:08] LABS: BASO % 0.3 % (0.0-1.0); EOS # 0.1 10*3/uL (0.0-0.4); HEMATOCRIT 32.1 % (42.0-52.0); HEMOGLOBIN 10.5 g/dl (14.0-18.0); LYMPH # 2.2 10*3/uL (1.3-4.4); LYMPH % 23.1 % (27.0-41.0); MEAN CORPUSCULAR HGB 31.1 pg (27.0-31.0); MEAN CORPUSCULAR HGB CONC 32.7 g/dl (33.0-37.0); MEAN PLATELET VOLUME 11.1 fl (9.6-12.3); MONO # 0.8 10*3/uL (0.1-1.0); MONO % 8.6 % (3.0-9.0); NEUT # 6.2 10*3/uL (2.3-7.9); NEUT % 65.7 % (47.0-73.0); PLATELET COUNT AUTOMATED 217 10*3/uL (130-400); RED BLOOD COUNT 3.38 10*6/uL (4.50-5.90); RED CELL DISTRI WIDTH 14.1 % (0-14.5); WHITE BLOOD COUNT 9.4 10*3/uL (4.8-10.8)
[2017-03-06 07:16] LABS: ALBUMIN 2.5 gm/dl (3.1-4.5); ALKALINE PHOSPHATASE 87 U/L (45-117); BUN 23 mg/dl (7-24); CHLORIDE 113 mmol/L (98-107); CREATININE 0.89 mg/dL (0.70-1.30); PHOSPHOROUS 2.9 mg/dL (2.5-4.9); POTASSIUM 3.8 mmol/L (3.5-5.1); SGOT/AST 43 IU/L (3-35); SGPT/ALT 28 U/L (12-78); SODIUM 146 mmol/L (136-145); TOTAL PROTEIN 6.3 gm/dL (6.4-8.2)
[2017-03-06 08:00] VITALS: BP 124/70
--- NOTE | 2017-03-06 08:15 | NUR ---
Registered Account Administrator in to talk to patient. Patient was at [place] for a short time prior to being sent to the hospital. There are 12 steps in their home. Physician: Dr. Christ Pizano Pharmacy: [facility] services: none Patient's level of ADLs: MAX ASSIST Patient has working utilities: yes DME: none Follow-up physician's appointment after d/c: will be made by hospitalist nurse director upon discharge Does patient want to access PORTAL?: no Discharge plan discussed with , Vi, at bedside. He was admitted from [place] where he was there for 2 hours on 02/26 to the ICU. From there he was discharged to the BHU. He is now on the 5th floor. would like a SNF for PT then when he is able to walk again she wants to take him home. Spoke to Monica Holman about the 's wishes. In the home there are 12 steps to the basement. He is a max assist at this time. Discharge plan undecided at this time. KENDRICK CAI
--- NOTE | 2017-03-06 09:22 | NUR ---
PHYSICAL THERAPY PAtient with nursing staff and MD. Thank you for this referral. Mahsa Person,PT
--- NOTE | 2017-03-06 09:27 | NUR ---
Patient not available for Occupational Therapy as she was with nursing. OTR will recheck at a later time. Jennifer Houser OTR/l
--- NOTE | 2017-03-06 09:39 | NUR ---
DR. HOOK IN TO SEE PATIENT RE: PLAN OF CARE.
--- NOTE | 2017-03-06 09:59 | NUR ---
ADMINISTERED PRN [place] DULCOLAX FOR C/O CONSTIPATION.
--- NOTE | 2017-03-06 10:10 | NUR ---
MEDICATED WITH PRN PO ULTRAM FOR RIGHT HIP AND LOWER ABDOMINAL PAIN.
--- NOTE | 2017-03-06 11:00 | NUR ---
PRN PO ULTRAM EFFECTIVE, PATIENT LESS RESTLESS AND AGITATED.
--- NOTE | 2017-03-06 11:08 | NUR ---
LAYLA ZALDIVAR [id number] Please refer to the physician's history and physical for past medical history, comorbid conditions, and allergies. Diagnosis: AC METABOLIC ENCEPHALOPATHY CKD Timothy Score: 10,AT RISK WOUND DESCRIPTIONS: Location of the wound: right hip Type of wound: surgical Thickness: Partial Size: 0.1cm x 15.0cm x <0.1cm Tunneling: none Undermining: none Sinus Tract: none Presence of Exudate: none Amount: None Color: [place] Odor: None Periwound Skin Appearance: Normal Wound edges: closed Pain (associated with wound): none at time of assessment How does patient state this happened? pt unable to state how this happened Location of the wound: left buttocks Type of wound: DTI Thickness: Partial Size: 1.0cm x 0.6cm x 0.1cm Tunneling: none Undermining: none Sinus Tract: none Presence of Exudate:none Amount: None Color: Red Odor: None Periwound Skin Appearance: Normal Wound edges: approximated Pain (associated with wound): none at time of assessment How does patient state this happened? pt unable to state how this happened Surface the patient is resting on: Position Pro SKIN PREVENTION RECOMMENDATION: 1. Pressure redistribution support surface as appropriate 2. Elevate heels 3. Remove boots/TEDS every shift and reapply 4. Head of bed 30 degrees as tolerated 5. Assess nutrition and hydration 6. Manage moisture 7. Avoid the use of containment devices while in bed 8. Use absorptive products on surfaces limit layers of linens on bed 9. Turn and reposition every 1-2 hours in bed and every 1 hour in chair as tolerated 10. Weight shifts every 15 minutes while up in chair 11. Offloading with pillows or device to keep heels elevated off bed 12. Monitor skin at least every shift 13. Inspect under medical devices twice a day WOUND TREATMENT RECOMMENDATIONS: DTI guidelines to left buttocks nss sureprep around wound therahoney to wound cover with optifoam gentle. Cleanse right hip with soap and water and pat dry the apply dsd daily
--- NOTE | 2017-03-06 11:55 | NUR ---
PHYSICAL THERAPY PAtient evalauted on 5, full evaluation to follow. Contineu with PT as per plan of care with fall, recent bipolar hemiarthroplasty right hip (02/05/17?), WBAT, max (A) x 2, bed alarm and recent aggitated with combativeness precautions. PAtient is high complexity via chart review, tests and evalaution: 05355. PAtient will require SNF versus LTACfor continued PT. Thank you for this referral Mahsa Person,PT
[2017-03-06 12:00] VITALS: BP 135/85
--- NOTE | 2017-03-06 12:55 | NUR ---
SPEECH PATHOLOGY Orders for clinical swallowing eval received. Patient was recently transferred to medical floor from [facility]. He is known to this dept. as he had orders while on prior unit however due to his unresponsive status, assessment was not able to be completed. Evaluation attempted this pm. Patient was in bed however completely unresponsive therefore evaluation unable to be conducted. Will attempt again at a later time. KASSI MENDOZA MSCCC-PRODUCTION MINER
--- NOTE | 2017-03-06 13:16 | NUR ---
MARIA ISABEL SPOKE WITH HOPSITALIST SAIRA FROM [facility]. [facility] IS WAITING TO SEE IF BEHAVIORS ARE A MEDICAL ISSUE THAT CAN BE CORRECTED BEFORE ACCEPTING PT. [facility] DO[facility] NOT HAVE THE BEHAVIOR UNIT NOW. NO OPENINGS AT [facility] WHERE BEHAVIOR UNIT IS.
--- NOTE | 2017-03-06 13:21 | NUR ---
PHYSICAL THERAPY Patient presented to therapy in supine with no verbalized concerns or complaints. Patient cannot verbalize a pain level for his R hip. Patient cannot communicate. Patient resisted transfer from supine to sitting at EOB ,so the transfer attempt was aborted. Patient performed AAROM ther ex in supine to the bilateral LEs x 20 reps each. Patient's LEs were also stretched to all LE muscle groups. Patient was left in supine with call light within reach and bed alarm activated and rails up. KELLEE GARY RAILROAD CONSTRUCTION DIRECTOR
--- NOTE | 2017-03-06 13:34 | NUR ---
Occupational Therapy evaluation completed this date on 5 with full eval to follow. Precautions include fall risk, wbat RLE, R YULI precautions, poor arousal, IV UE, high complexity level 13688. Recommend OT per POC and SNF upon d/c to enable max potential in ADLs, and functional mobility. THank you for this referral. Jennifer Houser OTR/l
--- NOTE | 2017-03-06 14:21 | NUR ---
SPEECH PATHOLOGY Bedside swallow eval attempted again. Patient was awake when clinician arrived and responded to simple questions asked. Lunch tray was present in his room. When asked if he wanted to eat, he responded "that sounds like a good idea." Tray set up was provided and patient stated that he wanted a drink. Liquid by straw was attempted however he was not able to suck from the straw. The straw and lid were removed and cup drinking was attempted but by that time, patient had fallen asleep. Clinician attempted to awaken him but he did not wake up enough to safely attempt food or liquid therefore session was terminated at this point. Safest diet is unable to be determined at this point due to continued limited responsiveness of patient. Will continue assessment as appropriate. Patient's nurse was informed and verbalized understanding. Refer to report in [employer] for results of this limited evaluation. Thank you for this referral. KASSI MENDOZA MSCCC-GLOBAL UPSTREAM MARKETING MANAGER
--- NOTE | 2017-03-06 14:50 | NUR ---
SW ATTEMPTED TO SPEAK WITH FAMILY BUT NO FAMILY PRESENT IN ROOM. SW WILL CHECK BACK.
[2017-03-06 16:00] VITALS: BP 138/86
[2017-03-06 20:00] VITALS: BP 113/66
[2017-03-07] VITALS: BP 156/65
--- NOTE | 2017-03-07 01:43 | NUR ---
24 HOUR CHART CHECK COMPLETED AT THIS TIME.
--- NOTE | 2017-03-07 06:00 | NUR ---
GIVEN PRN ULTRAM PER REQUEST FOR C/O RIGHT HIP PAIN. WILL MONITOR FOR EFFECTIVENESS.
--- NOTE | 2017-03-07 07:50 | NUR ---
PATIENT YELLING OUT, CONFUSED, ATIVAN GIVEN EARLIER NOT EFFECTIVE.
[2017-03-07 08:00] VITALS: BP 136/83
--- NOTE | 2017-03-07 08:07 | NUR ---
ADMINISTERED PRN PO DULCOLAX AND COLACE FOR CONSTIPATION, ALSO PRN PO ULTRAM FOR S/S PAIN (CLUTCHING RIGHT HIP AND MOANING) AND GENTEAL EYE LUBRICANT FOR DRY EYES.
--- NOTE | 2017-03-07 08:30 | NUR ---
Airplane Designer in to see patient. He is resting comfortably. There is no family at the bedside. Will follow.
--- NOTE | 2017-03-07 10:26 | NUR ---
PRN PO ULTRAM EFFECTIVE; PATIENT RESTING QUIETLY.
--- NOTE | 2017-03-07 10:39 | NUR ---
SPEECH PATHOLOGY Attempted to see patient this am for continued assessment to determine safest diet. Patient was asleep in bed, snoring loudly and did not respond. Will continue again at a later time. KASSI MENDOZA MS [facility]-SHERIFFS DETECTIVE
[2017-03-07 12:00] VITALS: BP 103/73
--- NOTE | 2017-03-07 13:04 | NUR ---
Attempted to see pt for OT with 2 attempts. Pt very lethargic & not responding to OT attemptes this am & early pm. Continue with POC. Erin MEADOWS/Andrew
--- NOTE | 2017-03-07 13:11 | NUR ---
PHYSICAL THERAPY Back this PM to see Mr Sullivan present. Pt not responding to verbal cues Mrs Sullivan said that Maury was given ultram and maybe another medication and just out at this time, will check back tomorrow. LEAH HENRY NURSING ADMIN.
--- NOTE | 2017-03-07 15:44 | NUR ---
SW STOPPED TO SPEAK WITH FAMILY BUT NO ONE IN ROOM BUT PT. PT SLEEPING SOUNDLY IN BED. WILL CHECK BACK.
[2017-03-07 16:00] VITALS: BP 98/60
[2017-03-07 20:00] VITALS: BP 103/67
--- NOTE | 2017-03-07 20:15 | NUR ---
PT RESTING QUIETLY WITH NO COMPLAINTS AT THIS TIME. PT IS PLEASANTLY CONFUSED AND COOPERATIVE WITH ASSESSMENT. LUNGS CLEAR, BS NORMO, DRY COUGH, TRACE LOWER BL EDEMA NOTED AT THE ANKLES. WILL CONTINUE TO MONITOR, CALL LIGHT IN REACH.
--- NOTE | 2017-03-07 20:46 | NUR ---
24 HOUR CHART CHECK COMPLETED AT THIS TIME.
[2017-03-07 22:05] LABS: NEURONTIN (GABAPENTIN) 2.9 ug/mL (4.0-16.0)
[2017-03-08] VITALS: BP 117/61
[2017-03-08 06:55] LABS: ALBUMIN 2.2 gm/dl (3.1-4.5); ALKALINE PHOSPHATASE 86 U/L (45-117); BUN 14 mg/dl (7-24); CHLORIDE 109 mmol/L (98-107); CREATININE 0.89 mg/dL (0.70-1.30); POTASSIUM 3.9 mmol/L (3.5-5.1); SGOT/AST 43 IU/L (3-35); SGPT/ALT 41 U/L (12-78); SODIUM 140 mmol/L (136-145); TOTAL PROTEIN 5.8 gm/dL (6.4-8.2)
[2017-03-08 08:00] VITALS: BP 127/81
--- NOTE | 2017-03-08 08:30 | NUR ---
Operations Analyst in to see patient. , Vi, is at the bedside feeding the patient. Discussed LTAC vs SNF with her. states she wants him to go to a SNF and work with PT then when he is able to go home she will take him home. day worker/town planner to follow.
--- NOTE | 2017-03-08 08:46 | NUR ---
SPEECH PATHOLOGY PT'S SWALLOWING FUNCTION CLINICALLY EVALUATED THIS AM. GENERAL COMMENTS: DISCUSSED CASE WITH RN. SHE REPORTED CONTINUED LETHARGY ALTHOUGH NOTED THAT PT INTERACTED WITH HIS THIS AM. UPON ENTRANCE TO ROOM, PT WAS RESTING WITH AT THE BEDSIDE. HE WOKE TO VERBAL CUES. PT VERY DISORIENTED AND DID NOT FOLLOW COMMANDS OR RESPOND TO CLINICIAN CUES. HE FOLLOWED BASIC COMMANDS PROVIDED BY HIS . PT WAS AWAKE FOR BRIEF SWALLOWING TRIALS BUT QUICKLY FELL BACK TO SLEEP. PER PT'S , PT WAS TOLERATING A REGULAR DIET WITH THIN LIQUIDS PRIOR TO MOST RECENT HOSPITALIZAITON. SHE ENDORSED OCCASIONAL COUGHING DURING MEALS BUT DENIED RECENT PNA. SHE WAS AWARE OF AND HAS BEEN IMPLEMENTING ASPIRATION PRECAUTIONS AND FEEDING STRATEGIES. SHE FEEDS HIM SMALL AMOUNT OF THIN LIQUID VIA CUP OR PIPED STRAW AND PUREE WHEN AWAKE/ALERT ENOUGH TO TOLERATE. BRIEF ORAL MECH OBTAINED PT DID NOT RESPOND TO INSTRUCTIONS. UPPER AND LOWER FACE SYMMETRIC AT REST. PT IS EDENTULOUS, DENTURES PRESENT AT BEDSIDE. TONGUE THRUST UPON PROTRUSION. DRY ORAL CAVITY. SWALLOWING TRIALS: PT TRIALED TSP OF PUREE X1 AND THIN LIQUIDS VIA PIPED STRAW X3. 100% FEEDING ASSISTANCE PROVIDED. PT UNABLE TO DRAW FROM STRAW. ORAL MANIPULATION AND SWALLOW INITIATION OF PUREE WAS TIMELY. PT HELD INITIAL THIN LIQUID BOLUS AND DID NOT INITIATE SWALLOW UNTIL MULTIPLE CUES PROVIDED. BRIEF ORAL HOLDING NOTED WITH SUBSEQUENT THIN LIQUID TRIALS BUT INDEPENDENT SWALLOW INITIATION. NO OVERT S/S OF ASPIRATION/PENETRATION WERE OBSERVED THROUGHOUT ALL TRIALS. IMPRESSIONS: BASED ON BRIEF TRIALS OF THIN LIQUID AND PUREE, PT CLINICALLY TOLERATED SMALL AMOUNTS OF THESE CONSISTENCIES W/O OVERT S/S OF ASPIRATION/PENETRATION. IT IS HIGHLY UNLIKELY HE COULD MAINTAIN ADEQUATE NUTRITION/HYDRATION VIA ONLY PO GIVEN HIS LIMITED ISELA; THEREFORE, SUPPLEMENTAL NUTRITION REMAINS NECESSARY. HOWEVER, IF PT IS AWAKE AND ALERT, HE IS APPROPRIATE FOR SMALL AMOUNTS OF PUREE AND THIN LIQUIDS. 100% FEEDING ASSISTANCE AND STRICT ADHERENCE TO ASPIRATION PRECAUTIONS IS NECESSARY GIVEN HIS CURRENT STATUS. RECOMMENDATIONS: 1. PUREE AND THIN LIQUID DIET TOLERATED - SMALL AMOUNTS AT A TIME IF AWAKE/ALERT 2. 100% FEEDING ASSISTANCE BY HOTEL RECREATIONAL FACILITIES MANAGER 3. STRICT ADHERENCE TO ASPIRATION PRECAUTIONS - FULLY UPRIGHT, AWAKE, AND ALERT FOR ALL PO - SMALL BITES/SIPS, SLOW RATE OF FEEDING - ORAL CARE AT LEAST BID - LIQUIDS BY PIPED STRAW OR TSP - PAUSE FEEDING IF NO LONGER ALERT OR IF COUGHING POC: SMT MACHINE OPERATOR SERVICE WILL F/U TO ENSURE TOLERANCE TO DIET, REINFORCE ASPIRATION PRECAUTIONS, AND EVALUATE FOR DIET UPGRADE APPROPRIATE. RECOMMENDATIONS WERE REVIEWED WITH PT'S AND RN WHO BOTH EXPRESSED UNDERSTANDING AND AGREEMENT. CAMPOS JIMENEZ-SMT MACHINE OPERATOR
--- NOTE | 2017-03-08 11:17 | NUR ---
DIET CHANGED TO PUREED PER SPEECH THERAPIST.
--- NOTE | 2017-03-08 11:44 | NUR ---
MARIA ISABEL SPOKE WITH . WOULD LIKE REFERRAL MADE TO [facility]. IF THEY DECLINED THEN SHE WILL LOOK FOR A DIFFERENT PLACE. SW WILL SEND REFERRAL.
--- NOTE | 2017-03-08 11:51 | NUR ---
MARIA ISABEL FAXED REFERRAL TO [facility].
--- NOTE | 2017-03-08 11:52 | NUR ---
MARIA ISABEL NOTIFIED GENE ROSENBAUM OF REFERRAL BEING FAXED.
[2017-03-08 12:00] VITALS: BP 117/78
--- NOTE | 2017-03-08 12:15 | NUR ---
Nutritional Support Services Note: Pt diet changed to pureed per speech therapy recommendation. Continue with Boost po tid with meals. Encourage intake. Will follow as needed. Angeles Ying
--- NOTE | 2017-03-08 12:26 | NUR ---
PHYSICAL THERAPY Patient presented to therapy with report of pain throughout body and fatigue. Patient's was present in room. Patient reuired MAX A X 2 to Total Dependent Transfer from supine to S/L and then to sitting at EOB. Patient sat at EOB with MAX A X 2 for 10 minutes with constant verbal cues for hand placement and leaning forward posture due to retro- movement in sitting. Patient constantly complained about pain in various parts of his body when performing the sitting tolerance for 10 minutes. Patient had a persistant retro-lean that required TOTAL support from two therapists. Patient was transfered back to supine in bed with MAX A X 2 to TOTAL DEPENDENT TRANSFER. Patient cannot even scoot up in bed and had to be moved up in bed with a sheet. Patient was left in supine position with head raised and bed alarm on. KELLEE GARY SPRAY BOOTH OPERATOR
--- NOTE | 2017-03-08 12:30 | NUR ---
PATIENT SEEN 1:1 OT THIS DATE. IDENTIFIED PATIENT BY NAME AND DATE OF . PATIENT IN BED WITH PRESENT THROUGHOUT SESSION. PATIENT RELUCTANT TO COMPLETE THERAPY WITH MUCH ENCOURAGEMENT COMPLETED. ACTIVITY COMPLETE TO TOLERANCE THAT INCLUDED SUPINE TO SIT EOB MAX A X 2 TO TOTAL DEPENDENT EOB WITH TACTILE/VERBAL CUES USE RAIL. PATIENT DEMONSTRATED P- SIT BALANCE SEATED EOB 10 MINUTES STATIC WITH MAX A X 2 MAINTAIN BALANCE AND VERBAL CUES HAND PLACEMENT AND POSTURE SECONDARY PATIENT RETRO. PATIENT ARGUEMENTATIVE AND DEMONSTRATES POOR SAFETY AWARENESS. PATIENT REPOSITIONED IN BED WITH HEEL CARDS AND WEDGE IN PLACE. OTF BUCKLEY
--- NOTE | 2017-03-08 13:00 | NUR ---
PATIENT PULLED IV OUT. REPLACED IT IN THE LEFT AC.
--- NOTE | 2017-03-08 15:43 | NUR ---
PATIENT PULLED OUT A SECOND IV.
[2017-03-08 16:00] VITALS: BP 115/66
[2017-03-08 20:00] VITALS: BP 154/90
--- NOTE | 2017-03-08 22:40 | NUR ---
SPOKE TO DR VIGIL ABOUT PT EXHIBITING ERRATIC AND UNCOOPERATIVE BEHAVIOR. PT IS STRIPPING HIS CLOTHES OFF AND HAS PULLED OUT MULTIPLE IV'S. STAFF IS UNABLE TO GET VITAL SIGNS. PT IS REFUSING TO TAKE HIS PO MEDICATIONS. PT IS YELLING AT AND THREATENING STAFF. WHILE ATTEMPTING IV PT CONTINUES TO FLAIL ARMS ERRATICALLY AND IS YELLING INAPPROPRIATE THINGS. AWAITING ORDER FOR IM.
[2017-03-09] VITALS: BP 148/90
--- NOTE | 2017-03-09 04:23 | NUR ---
PT MEDICATED WITH IV ATIVAN FOR ERRATIC BEHAVIOR. PT UNDRESSING SELF, PULLING OFF BRIEF AND SHOUTING. WILL MONITOR EFFECTIVENESS. BED ALARM ACTIVE.
[2017-03-09 06:07] LABS: BASO % 0.2 % (0.0-1.0); EOS # 0.2 10*3/uL (0.0-0.4); EOS % 2.7 % (1.0-4.0); HEMATOCRIT 30.1 % (42.0-52.0); HEMOGLOBIN 9.8 g/dl (14.0-18.0); LYMPH # 2.1 10*3/uL (1.3-4.4); LYMPH % 23.1 % (27.0-41.0); MEAN CELL VOLUME 92.6 fl (80.0-94.0); MEAN CORPUSCULAR HGB 30.2 pg (27.0-31.0); MEAN CORPUSCULAR HGB CONC 32.6 g/dl (33.0-37.0); MEAN PLATELET VOLUME 10.5 fl (9.6-12.3); MONO # 0.9 10*3/uL (0.1-1.0); MONO % 10.1 % (3.0-9.0); NEUT # 5.6 10*3/uL (2.3-7.9); NEUT % 62.9 % (47.0-73.0); PLATELET COUNT AUTOMATED 229 10*3/uL (130-400); RED BLOOD COUNT 3.25 10*6/uL (4.50-5.90); RED CELL DISTRI WIDTH 13.4 % (0-14.5); WHITE BLOOD COUNT 8.9 10*3/uL (4.8-10.8)
[2017-03-09 06:30] LABS: ALBUMIN 2.3 gm/dl (3.1-4.5); BUN 11 mg/dl (7-24); CHLORIDE 107 mmol/L (98-107); CREATININE 0.94 mg/dL (0.70-1.30); POTASSIUM 3.7 mmol/L (3.5-5.1); SGOT/AST 35 IU/L (3-35); SGPT/ALT 44 U/L (12-78); SODIUM 142 mmol/L (136-145); TOTAL PROTEIN 5.8 gm/dL (6.4-8.2)
[2017-03-09 06:31] LABS: ALKALINE PHOSPHATASE 87 U/L (45-117)
[2017-03-09 08:00] VITALS: BP 133/75
--- NOTE | 2017-03-09 08:30 | NUR ---
PTS STATES PT IS NOT RECEIVING ALL OF HIS HOME MEDICATIONS. PER A LIST PROVIDED FROM HER THIS NURSE UPDATED MED REC. DR MESA NOTIFIED.
[2017-03-09] MEDS ORDERED: CITALOPRAM10 MG PO (08:56)
[2017-03-09] MEDS ORDERED: MYRBETRIQ50 M1 PO (08:57)
[2017-03-09] MEDS ORDERED: QUETIAPINE FUM100 M1 PO (08:58)
--- NOTE | 2017-03-09 11:44 | NUR ---
PER DR PEÑA AND AGREEMENT OF PTS PT RECEIVED IM [facility] FOR AGITATION AND RESTLESSNESS. WILL MONITOR FOR EFFECTIVENESS.
[2017-03-09 12:00] VITALS: BP 121/84
--- NOTE | 2017-03-09 12:30 | NUR ---
Patient resting quietly with no c/o discomfort. Respirations easy and regular. Vital signs stable. No overt distress. PAZ DIAS
[2017-03-09 16:00] VITALS: BP 143/73
--- NOTE | 2017-03-09 19:00 | NUR ---
CALLED DR MESA AND INFORMED HIM OF PTS HEAD CT RESULTS.; NO NEW ORDERS
[2017-03-09 20:00] VITALS: BP 153/81
--- NOTE | 2017-03-09 20:00 | NUR ---
ASSUMED CARE OF PATIENT. PATIENT WAS SLEEPING UPON ENTRY TO THE ROOM. HE WAS DIFFICULT TO AROUSE. PATIENT SEEMS TO BE CONFUSED, LETHARGIC, AND UNCOOPERATIVE. LUNGS SOUNDS ARE DIMINISHED. NO EDEMA NOTED. HEPLOCKED IV IN RIGHT ANTECUBITAL IS HOOKED UP TO D5 1/2NS, RUNNING AT 100ML/HR. IV IS ASYMPTOMATIC.
--- NOTE | 2017-03-09 21:50 | NUR ---
UPON ENTERING THE ROOM TO GIVE EVENING MEDS, PATIENT WAS RED TO THE FACE, AND FELT WARM TO THE TOUCH. UPON TAKING TEMPERATURE VIA AXILLARY MEASUREMENT, TEMP WAS FOUND TO ME 99.9 DEGREES F. GAVE THE PATIENT 650 MG OF TYLENOL FOR THE FEVER. PATIENT WAS DIFFICULT TO AROUSE FROM SLEEP TO GIVE MEDS, BUT DID SUCCESSFULLY TAKE THE MEDICATION WITH SOME APPLESAUCE.
--- NOTE | 2017-03-09 23:21 | NUR ---
PATIENT'S FEVER HAD RESOLVED. PATIENT'S LAST TEMPERATURE READING AT 2230 WAS 98.5 DEGREES F.
[2017-03-10] VITALS: BP 136/76
[2017-03-10 07:26] LABS: BASO % 0.2 % (0.0-1.0); EOS # 0.3 10*3/uL (0.0-0.4); EOS % 2.8 % (1.0-4.0); HEMATOCRIT 32.1 % (42.0-52.0); HEMOGLOBIN 10.6 g/dl (14.0-18.0); LYMPH % 30.8 % (27.0-41.0); MEAN CELL VOLUME 94.1 fl (80.0-94.0); MEAN CORPUSCULAR HGB 31.1 pg (27.0-31.0); MEAN PLATELET VOLUME 10.3 fl (9.6-12.3); MONO % 9.9 % (3.0-9.0); NEUT # 5.4 10*3/uL (2.3-7.9); NEUT % 55.5 % (47.0-73.0); PLATELET COUNT AUTOMATED 215 10*3/uL (130-400); RED BLOOD COUNT 3.41 10*6/uL (4.50-5.90); RED CELL DISTRI WIDTH 13.6 % (0-14.5); WHITE BLOOD COUNT 9.7 10*3/uL (4.8-10.8)
[2017-03-10 07:45] LABS: BUN 9 mg/dl (7-24); CHLORIDE 107 mmol/L (98-107); CREATININE 0.93 mg/dL (0.70-1.30); POTASSIUM 3.8 mmol/L (3.5-5.1); SODIUM 142 mmol/L (136-145)
[2017-03-10 08:00] VITALS: BP 100/64
[2017-03-10 12:00] VITALS: BP 112/73
[2017-03-10 16:00] VITALS: BP 130/87
[2017-03-10 20:00] VITALS: BP 115/73
[2017-03-11] VITALS: BP 120/85
--- NOTE | 2017-03-11 03:20 | NUR ---
Resting in bed, moaning. Explained had medication and asked if he could swallow, stated yes, then started a slight yell, stating heel and foot and wanted something for pain, at this time was almost a crying sound. Toradol given for pain at 2144. Toradol effective to decrease pain and allow to rest quietly. No further yelling, crying or complaints of pain, no s/s of pain at this time. Will continue to monitor.
[2017-03-11 06:45] LABS: BASO % 0.2 % (0.0-1.0); EOS # 0.3 10*3/uL (0.0-0.4); EOS % 3.5 % (1.0-4.0); HEMATOCRIT 30.8 % (42.0-52.0); HEMOGLOBIN 10.1 g/dl (14.0-18.0); LYMPH # 2.1 10*3/uL (1.3-4.4); LYMPH % 22.8 % (27.0-41.0); MEAN CELL VOLUME 92.5 fl (80.0-94.0); MEAN CORPUSCULAR HGB 30.3 pg (27.0-31.0); MEAN CORPUSCULAR HGB CONC 32.8 g/dl (33.0-37.0); MEAN PLATELET VOLUME 10.3 fl (9.6-12.3); MONO # 0.9 10*3/uL (0.1-1.0); MONO % 10.2 % (3.0-9.0); NEUT # 5.6 10*3/uL (2.3-7.9); NEUT % 62.3 % (47.0-73.0); PLATELET COUNT AUTOMATED 214 10*3/uL (130-400); RED BLOOD COUNT 3.33 10*6/uL (4.50-5.90); RED CELL DISTRI WIDTH 13.5 % (0-14.5)
[2017-03-11 06:53] LABS: BUN 10 mg/dl (7-24); CHLORIDE 106 mmol/L (98-107); CREATININE 0.86 mg/dL (0.70-1.30); POTASSIUM 3.9 mmol/L (3.5-5.1); SODIUM 141 mmol/L (136-145)
--- NOTE | 2017-03-11 07:50 | NUR ---
Alert and talking this morning. Said he was sorry for saying he didn't like applesauce. Stated some pills make him feel funny, explained pill taking this morning were Synthroid and Neurontin and said OK. Did talk appropriately, but does drift off and talks nonsense. Will continue to monitor.
--- NOTE | 2017-03-11 07:56 | NUR ---
OCCUPATIONAL THERAPY CO-SIGN I approve of the Occupational Therapy notes written above. YORDAN DOMINGUEZ OTR/Andrew
[2017-03-11 08:00] VITALS: BP 126/73
--- NOTE | 2017-03-11 08:00 | NUR ---
RESTING QUIETLY AWAKENS TO VERBAL STIMULI, NO DISTRESS NOTED.
--- NOTE | 2017-03-11 08:30 | NUR ---
HERE FEEDING BREAKFAST, NO DISTRESS NOTED.
--- NOTE | 2017-03-11 08:30 | NUR ---
Division Superintendent in to see patient. , Vi, is at the bedside. We are waiting to hear back from [facility] for approval. winery worker/search planner to follow.
--- NOTE | 2017-03-11 10:00 | NUR ---
PT IS VERY DROWSY NOW. STATES SHE THINKS BATH AND PT WORE HIM OUT. WILL CONTINUE TO MONITOR.
--- NOTE | 2017-03-11 11:00 | NUR ---
SW FAXED REFERRALS TO [facility], [facility], AND [facility]. [facility] WOULD NOT GO THROUGH AFTER THE 3RD TRY. MARIA ISABEL WILL TRY AGAIN ON 03/12/17.
--- NOTE | 2017-03-11 11:03 | NUR ---
PHYSICAL THERAPY Patient was a Total Dependent Transfer x 2 from supine to sitting at EOB. Patient sat at EOB for 5 minutes total. Patient required Max A x 2 to sit EOB. Patient rolled side to side as PCT's changed patient's clothing and bedding. Patient was transfered back to supine in bed with Max A x 2. KELLEE GARY ELECTRONIC ENGINEERING TECHNICIAN
[2017-03-11 12:00] VITALS: BP 121/73
--- NOTE | 2017-03-11 12:14 | NUR ---
PATIENT SEEN 1:1 OT THIS DATE 19 MINUTES.PATIENT RELUCTANT TO COMPLETE THERAPY WITH MUCH ENCOURAGEMENT REQUIRED. COMPLETED BILATERAL ROLLING PATIENT DEP X 2 USE RAIL FOR LB HYGIENE CARE. PATIENT COMPLETED SUPINE TO SIT DEP X 2 EOB 5 MIN WITH P- BALANCE WITH PATIENT DEMONSTRATING FEARFUL OF FALLING AND RETROGRADE/RIGID.PATIENT COMPLETED SIT TO SUPINE MAX X 2. PATIENT PRESENT THROUGHOUT SESSION THIS DATE. COMPLETED ACTIVITY TO TOLERANCE. OTF BUCKLEY
--- NOTE | 2017-03-11 12:26 | NUR ---
SW SPOKE WITH ABOUT PLACEMENT. SW EXPLAINED THAT [facility] WANTED AN UPDATE AND SW SENT IT. SW AFRAID THAT [facility] WILL NOT ACCEPT PT DUE TO AGITATION AT TIMES. AGREED FOR REFERRALS TO BE SENT TO [facility], [facility]. WANTS TO SEE IF PT CAN WALK WITH THERAPY SO THAT SHE CAN BRING HIM HOME. WANTS PT TO HAVE GOOD CARE AT FACILITY. SW WILL MAKE REFERRALS.
--- NOTE | 2017-03-11 13:54 | NUR ---
SPEECH PATHOLOGY Treatment attempted X2 this date. On both attempts, patient was sitting upright in bed, but asleep and snoring. When his name was called, he would moan, but fall back asleep. Due to his condition, feeding was not attempted. KASSI MENDOZA MSCCC-LOCKER OPERATOR
[2017-03-11 16:00] VITALS: BP 131/88
[2017-03-11 20:00] VITALS: BP 121/73; BP 125/52
--- NOTE | 2017-03-11 22:15 | NUR ---
TORADOL GIVEN AT THIS TIME FOR PATIENT COMPLAINING OF HIP PAIN. WILL MONITOR FOR EFFECTIVENESS.
--- NOTE | 2017-03-11 23:00 | NUR ---
TORADOL EFFECTIVE, PATIENT RESTING IN BED. NO S/S OF DISTRESS NOTED AT THIS TIME.
[2017-03-12] VITALS: BP 122/66
--- NOTE | 2017-03-12 07:30 | NUR ---
PATIENT IS IN BED. PATIENT IS HARD TO AROUSE AND CONFUSED DURING ASSESSMENT. PATIENT VERBALIZES PAIN WHEN BEING MOVED BUT THE SLEEPS SOUNDLY AT REST WITHOUT MEDICATION. FAMILY IS AT THE BEDSIDE. WOUND DRESSINGS CHANGED. CALL LIGHT WITHIN REACH. SEE SHIFT ASSESSMENT.
[2017-03-12 08:00] VITALS: BP 114/67
--- NOTE | 2017-03-12 08:30 | NUR ---
Adoption Worker in to see patient. No family at the bedside. Patient is resting quietly. Awaiting nursing facility approval for SNF.
--- NOTE | 2017-03-12 10:09 | NUR ---
MARIA ISABEL RECIEVED CALL FROM [facility]. [facility] WANTS PT TO COME TOUR FACILITY BEFORE ACCEPTING PT. PARISA CALLING TO SET UP TOUR.
--- NOTE | 2017-03-12 11:28 | NUR ---
PATIENT SEEN OT 1:1 THIS DATE. PATIENTIN BED WITH EYES CLOSED. REQUIRED STERNAL RUB FOR AROUSAL. PATIENT IDENTIFIED BY NAME AND DATE OF . PATIENT COMPLETED BILATERAL ROLLING DEP/MAXA X 2 FOR HYGIENE CARE. COMPLETED SUPINE TO SIT EOB PATIENT DEP X 2 SIT EOB WITH TOTAL DEPENDENCE MAINTAIN SIT BALACE. ATTEMPTED TO INITIATE REACHING FOR CUP WITH PATIENT UNABLE TO FOLLOW SIMPLE ONE STEP COMMANDS AND FALLING ASLEEP/CLOSING EYES. PATIENT DISORIENTED X 3. CONTINUE TOWARDS PLAN OF CARE. OTF GODOY/Andrew
--- NOTE | 2017-03-12 11:58 | NUR ---
SPEECH PATHOLOGY Patient was seen for treatment this pm. Patient was awake when clinician entered room. Earlier attempts were made at treatment, but not successful as he was asleep. Upon visit, patient was able to provide appropriate responses to simple yes/no questions though confusion was displayed during his spontaneous speech. Patient reported that his legs were hurting, but he did not know why. Clinician attempted to feed patient using a variety of purees and thin liquids. Patient politely refused all items. Encouragement was provided and repeated requests were made for patient to have a snack or a drink but he continued to refuse and then fell asleep, no longer responding to the clinician. Continue plan as able for continued assessment to ensure safe tolerance of recommended diet. KASSI MENDOZA MSCCC-PARTY HOST
[2017-03-12 12:00] VITALS: BP 118/66
--- NOTE | 2017-03-12 14:09 | NUR ---
DR. CHRISTIAN MADE AWARE OF FAMILY CONCERNS REGARDING PATIENT MEDICATIONS. SAID SHE WILL BE DOWN TO TALK TO PATIENT AROUND 5PM. FAMILY CONTACTED AND CONFIRMED SHE WILL BE AT THE HOSPITAL AT 5PM TO SPEAK WITH DR. CHRISTIAN.
--- NOTE | 2017-03-12 14:21 | NUR ---
[facility] CALLED BACK. FACILITY UNABLE TO ACCEPT PT AT THIS TIME.
--- NOTE | 2017-03-12 14:21 | NUR ---
MARIA ISABEL WAS INFORMED BY MELISSA THAT [facility] DECLINED REFERRAL FOR PT.
--- NOTE | 2017-03-12 14:29 | NUR ---
MARIA ISABEL RECEIVED VM FROM [address] REQUESTING INFORMATION BE FAXED AGAIN DUE TO ONLY RECEIVEING FACE SHEET. MARIA ISABEL LEFT NAS VM AND REFAXED INFORMATION.
[2017-03-12 16:00] VITALS: BP 120/68
--- NOTE | 2017-03-12 16:00 | NUR ---
sw RECEIVED NOTICE THAT [facility] DECLINED REFERRAL.
--- NOTE | 2017-03-12 16:01 | NUR ---
MARIA ISABEL LEFT VM FOR NAS AT [facility] TO SEE IF PT WAS GOING TO BE ACCEPTED.
--- NOTE | 2017-03-12 17:37 | NUR ---
DR. CHRISTIAN IN TO SEE PATIENT AND DISCUSS MEDICATION CONCERNS.
[2017-03-12 20:00] VITALS: BP 112/57
[2017-03-13] VITALS: BP 126/76
--- NOTE | 2017-03-13 07:41 | NUR ---
OCCUPATIONAL THERAPY CO-SIGN I approve of the Occupational Therapy notes written above. YORDAN DOMINGUEZ OTR/Andrew
[2017-03-13 07:48] VITALS: BP 142/79
--- NOTE | 2017-03-13 08:30 | NUR ---
Transition Mgr Rn in to see patient. He is resting comfortably. at bedside. No new needs or request at this time. Awaiting placement approval. room worker following.
--- NOTE | 2017-03-13 08:51 | NUR ---
SPEECH PATHOLOGY Patient was seen for treatment this am. He was awake and responsive though confused. His spouse was present and was feeding him breakfast, with various pureed items and thin liquids. Patient needed encouragement to take bites and sips due to confusion. He was able to propel and swallow the bolus with no residue, cough or wet vocal quality. Spouse did well with implementation of safe swallow strategies including feeding slowly, small bites and sips, alternating liquids and solids and cues/encouragement as needed. Patient tolerates present diet and it is recommended he remain on this diet for safety. Safe swallow precautions have been placed at bedside for education of staff during feeding. A calorie count has been ordered to determine his amount of intake as he often sleeps through meals. As he tolerates highest level diet, recommend discharge from speech services at this time. Thank you for this referral. It has been a pleasure taking part in this patient's care. KASSI MENDOZA MSCCC-CREDIT ASSISTANT
--- NOTE | 2017-03-13 09:44 | NUR ---
SW GAVE UPDATED INFORMATION TO [facility] FOR [facility] ([facility]). FACILITY STILLINTERESTED IN ACCEPTING PT BUT FAMILY DOES NOT WANT HIM TO GO THAT FAR.
--- NOTE | 2017-03-13 09:45 | NUR ---
MARIA ISABEL LEFT VM FOR NICOLE MIRELES TO SEE IF THEY WERE GOING TO ACCEPT PT.
--- NOTE | 2017-03-13 11:24 | NUR ---
sergey rosa from [facility] requested updated med list. reinaldo faxed updated med list.
--- NOTE | 2017-03-13 11:43 | NUR ---
LAYLA ZALDIVAR [id number] Please refer to the physician's history and physical for past medical history, comorbid conditions, and allergies. Diagnosis: AC METABOLIC ENCEPHALOPATHY CKD Timothy Score: 10,AT RISK WOUND DESCRIPTIONS: Location of the wound: right hip Type of wound: surgical Thickness: Partial Size: 0.1cm x 15.0cm x 0.1cm Tunneling: none Undermining: none Sinus Tract: none Presence of Exudate: none Amount: None Color: [place] Odor: None Periwound Skin Appearance: Normal Wound edges: closed Pain (associated with wound): none at time of assessment How does patient state this happened? pt unable to state how this happened Location of the wound: left buttocks Type of wound: DTI Thickness: Partial Size: 0.4cm x 0.3cm x 0.1cm Tunneling: none Undermining: none Sinus Tract: none Presence of Exudate: Amount: None Color: Red Odor: None Periwound Skin Appearance: Normal Wound edges: approximated Pain (associated with wound): none at time of assessment How does patient state this happened? pt unable to state how this happened. Patients groin and red in color. Patient incontient. Surface the patient is resting on: Position Pro SKIN PREVENTION RECOMMENDATION: 1. Pressure redistribution support surface as appropriate 2. Elevate heels 3. Remove boots/TEDS every shift and reapply 4. Head of bed 30 degrees as tolerated 5. Assess nutrition and hydration 6. Manage moisture 7. Avoid the use of containment devices while in bed 8. Use absorptive products on surfaces limit layers of linens on bed 9. Turn and reposition every 1-2 hours in bed and every 1 hour in chair as tolerated 10. Weight shifts every 15 minutes while up in chair 11. Offloading with pillows or device to keep heels elevated off bed 12. Monitor skin at least every shift 13. Inspect under medical devices twice a day WOUND TREATMENT RECOMMENDATIONS: Groin cleanse with soap and water apply calazime bid and prn for soiling. Continue current treatments as ordered per md.
--- NOTE | 2017-03-13 13:03 | NUR ---
PHYSICAL THERAPY Patient was supine in bed this am when approached by therapist with continuos O2-2L via NC and IV treatment. Patient seen 1:1 for B LE PROM secondary to increased B LE flexion contracture. Patient transfers all MAX A x 2 and requires v/c's to complete most task, demonstrating very rigid tone. Patient needed MAX A x 1 for EOB static sit tolerance x 5 minutes followed by sit to stand transfer, MAX A x 2, demonstrating Poor upright posture due to increased B knee flexion and quick onset of fatigue, tolerating < 15 seconds each trial. Patient returned to supine in bed MAX A x 2 and remained with bed alarm activated and call light on tray table near bed. Will continue as appropriate to improve B LE ROM / functional transfers. Total treatment time 20 minutes. Hugo Arriola, MIXER WET POUR
--- NOTE | 2017-03-13 14:40 | NUR ---
Sha nguyễn stated they are sending Brianne here to perform an onsite review prior to accepting patient.
[2017-03-13 16:00] VITALS: BP 115/71
[2017-03-13 20:00] VITALS: BP 140/79
[2017-03-14] VITALS: BP 147/81
--- NOTE | 2017-03-14 01:49 | NUR ---
PATIENT HAD SMALL GREEN EMESIS AT THIS TIME. MEDICATED WITH ZOFRAN. WILL MONITOR FOR EFFECTIVENESS. CALL LIGHT IN REACH.
--- NOTE | 2017-03-14 02:31 | NUR ---
JUNIOR BEING BATHED AT THIS TIME. MIKAL CALLED NURSE INTO ROOM TO LOOK AT PATIENT'S RIGHT HEEL. BLISTER NOTED TO RIGHT HEEL MEASURING 5CM X 7CM. POLICY AND PLANNING MANAGER NOTIFIED AND DR. VIGIL NOTIFIED. WILL CONTINUE TO MONITOR.
[2017-03-14 07:03] LABS: BASO % 0.1 % (0.0-1.0); EOS # 0.2 10*3/uL (0.0-0.4); EOS % 1.8 % (1.0-4.0); HEMATOCRIT 30.3 % (42.0-52.0); HEMOGLOBIN 9.8 g/dl (14.0-18.0); LYMPH # 1.5 10*3/uL (1.3-4.4); LYMPH % 15.6 % (27.0-41.0); MEAN CELL VOLUME 92.4 fl (80.0-94.0); MEAN CORPUSCULAR HGB 29.9 pg (27.0-31.0); MEAN CORPUSCULAR HGB CONC 32.3 g/dl (33.0-37.0); MEAN PLATELET VOLUME 10.3 fl (9.6-12.3); NEUT % 71.9 % (47.0-73.0); PLATELET COUNT AUTOMATED 219 10*3/uL (130-400); RED BLOOD COUNT 3.28 10*6/uL (4.50-5.90); RED CELL DISTRI WIDTH 13.3 % (0-14.5); WHITE BLOOD COUNT 9.7 10*3/uL (4.8-10.8)
[2017-03-14 07:33] LABS: CREATININE 0.88 mg/dL (0.70-1.30)
--- NOTE | 2017-03-14 07:35 | NUR ---
Patient has been accepted by [facility] and can go when medically stable for discharge.
[2017-03-14 08:00] VITALS: BP 120/71
--- NOTE | 2017-03-14 08:00 | NUR ---
WOUND CARE COMPLETED TO RIGHT HEEL. WOUNDS TO HIP AND BUTTOCK HEALED. DISCHARGE PICS TAKEN
--- NOTE | 2017-03-14 08:15 | NUR ---
Patient resting quietly with no c/o discomfort. Respirations easy and regular. Vital signs stable. No overt distress. PARISA LEVY R
--- NOTE | 2017-03-14 08:30 | NUR ---
Nursing Informatics Analyst in to see patient. He is resting with eyes closed. Vi, , at bedside. No new needs or request at this time. When medically stable he will be discharged to [facility].
--- NOTE | 2017-03-14 10:00 | NUR ---
AT BEDSIDE. UPDATED ON PLAN OF CARE.
--- NOTE | 2017-03-14 11:40 | NUR ---
Location of the wound: right heel Type of wound: stage 2 Thickness: Partial Size: 5.0cm x 5.5cm x <0.1cm Tunneling: none Undermining: none Sinus Tract: none Presence of Exudate: none Amount: None Color: [place] Odor: None Periwound Skin Appearance: Normal Wound edges: closed, intact serum filled blister Pain (associated with wound): none at time of assessment How does patient state this happened? pt unable to state how this happened I would recommend stage 2 guidelines. Sp cover with optifoam gentle.
[2017-03-14 12:00] VITALS: BP 126/65
--- NOTE | 2017-03-14 12:03 | NUR ---
WOUNDS TO RIGHT HIP AND LEFT BUTTOCK HEALED
[2017-03-14] MEDS ORDERED: CALCIUM CARBON200 MG PO (12:08)
[2017-03-14] MEDS ORDERED: NEURONTIN300 MG PO (12:08)
[2017-03-14] MEDS ORDERED: VITAMIN D-32000 UNI1 PO (12:08)
[2017-03-14] MEDS ORDERED: GABAPENTIN TAB600 MG PO (12:08)
--- NOTE | 2017-03-14 12:25 | NUR ---
Attempted 2 x times for OT session however pt not agreeable 1st attempt. With 2nd attempt, pt sleeping & difficult to "wake up". Continue with POC. Erin MEADOWS/Andrew
--- NOTE | 2017-03-14 12:29 | NUR ---
PHYSICAL THERAPY Patient presented to therapy with report in supine with minimal verabalization. Patient recieved stretching to the bilateral LEs in supine to hamstrings, calves, and hips. Patient then performed supine to sitting at EOB with Max A X 2. Patient performed sit to stand with Max A X 2. Patient performed standing tolerance for 1 minute with Mod A X 2 to Max A X 2. Patient performed sitting tolerance for 5 minutes total with Mod A X 2 to Max A x 2 at times. Patient was transfered back to supine in bed with Max A X 2. gabriella danielson mine captain
--- NOTE | 2017-03-14 12:38 | NUR ---
Patient resting quietly with no c/o discomfort. Respirations easy and regular. Vital signs stable. No overt distress. PARISA LEVY R
--- NOTE | 2017-03-14 12:55 | NUR ---
SW ARRANGED TRANSPORTATION TO [facility] WITH [employer] FOR CLIENT TECHNOLOGIES SPECIALIST AROUND 2PM.
--- NOTE | 2017-03-14 13:04 | NUR ---
MARIA ISABEL NOTIFIED NICOLE MIRELES OF SOAP TENDER TIME 2PM BY [employer].
--- NOTE | 2017-03-14 13:40 | NUR ---
GWEN, NOTIFIED OF DISCHARGE TO [facility]
--- NOTE | 2017-03-14 14:00 | NUR ---
ITZEL CALLED AT [facility], REPORT GIVEN
--- NOTE | 2017-03-14 14:11 | NUR ---
Discharge instructions reviewed with patient/family. Patient receptive and verbalizes understanding. Follow-up care arranged. Written instructions given to patient/family. PARISA LEVY
--- NOTE | 2017-03-14 14:11 | NUR ---
ITZEL CALLED AT [facility] AND NOTIFIED OF BASIC METABOLIC PANEL NEEDING DRAWN ON 03/19. NEW DISCHARGE PACKET PRINTED AND ADDED TO ENVELOPE.
--- NOTE | 2017-03-21 07:53 | NUR ---
OCCUPATIONAL THERAPY CO-SIGN I approve of the Occupational Therapy notes written above. YORDAN DOMINGUEZ OTR/Andrew
== END 2017-03-14 14:11 | disposition other institution (70) | DRG 70 ==
LOC: 5E 13:28
PROVIDERS: Internal Medicine; Internal Medicine Nephrology; Psychiatry & Neurology Psychiatry; Registered Nurse; ADMIT Internal Medicine
DX: G93.41 Metabolic encephalopathy (principal); E43 Unspecified severe protein-calorie malnutrition; E87.0 Hyperosmolality and hypernatremia; F03.91 Unspecified dementia, unspecified severity, with behavioral disturbance; C61 Malignant neoplasm of prostate; G62.9 Polyneuropathy, unspecified; I48.0 Paroxysmal atrial fibrillation; D64.9 Anemia, unspecified; F23 Brief psychotic disorder; N18.3 Chronic kidney disease, stage 3 (moderate); K21.9 Gastro-esophageal reflux disease without esophagitis; E03.9 Hypothyroidism, unspecified; F63.9 Impulse disorder, unspecified; I12.9 Hypertensive chronic kidney disease with stage 1 through stage 4 chronic kidney disease, or unspecified chronic kidney disease; N32.81 Overactive bladder; Z66 Do not resuscitate; Z51.5 Encounter for palliative care; M19.90 Unspecified osteoarthritis, unspecified site; F32.9 Major depressive disorder, single episode, unspecified; R73.9 Hyperglycemia, unspecified; Z95.5 Presence of coronary angioplasty implant and graft; Z90.79 Acquired absence of other genital organ(s); I25.2 Old myocardial infarction; Z87.891 Personal history of nicotine dependence; Z88.8 Allergy status to other drugs, medicaments and biological substances; Z79.899 Other long term (current) drug therapy; Z79.82 Long term (current) use of aspirin; Z68.32 Body mass index [BMI] 32.0-32.9, adult

== ENCOUNTER 2017-03-16 20:27 | Inpatient (IN) | payer MEDICARE, OTHER ==
[~2017-03-16] VITALS: Ht 182.8 cm; Wt 107.6 kg
--- NOTE | ~2017-03-16 | PR ---
[place], [place] PROGRESS NOTE NAME: LAYLA ZALDIVAR UNIT #: [id number] ROOM: 421 DOCTOR: MEL MCNAMARA,LAKISHA BIRTHDATE: [birth year] DOS: 03/19/2017 REASON FOR VISIT: Atrial fibrillation and CAD. The patient is resting comfortably and is at bedside. REVIEW OF SYSTEMS: Due to his mental status, review of systems is limited. There is no acute distress. The 8 systems negative due to patient's mental status. PHYSICAL EXAMINATION: VITAL SIGNS: Reviewed. GENERAL: The patient is alert, comfort, no acute distress. HEENT: Pupils are round. NECK: Supple, no distended neck veins. No carotid bruit. CHEST: Nontender. LUNGS: Clear to auscultation bilaterally. HEART: Regular rhythm, no S3, no palpable thrills. ABDOMEN: Benign, nontender. Bowel sounds normal. EXTREMITIES: Showed no edema. Distal pulses are palpable. The patient's right leg was in dressing with trace edema. SKIN: Warm and dry. NEUROLOGIC: The patient is alert. Exam is incomplete due to patient's mental status. RECTAL: Deferred. GENITOURINARY: Deferred. Medications and labs reviewed. IMPRESSION: 1. Paroxysmal atrial fibrillation, rate controlled. 2. History of coronary artery disease. 3. Hypertension. 4. Anemia. 5. Dementia. RECOMMENDATIONS: 1. I had a long discussion with the patient's who is at bedside. Risk and benefits of the anticoagulation discussed and he is agreeable to start him on ____. We will start Xarelto 20 mg once daily. 2. Discontinue his Lovenox. 3. Continue current medications. 4. Blood pressure and heart rates are stable on current medications. 5. Cardiology will see as needed and he can be discharged from the cardiac standpoint. The above treatment was discussed with ____. [place], [place] PROGRESS NOTE NAME: LAYLA ZALDIVAR UNIT #: [id number] ROOM: 421 DOCTOR: MEL MCNAMARA,LAKISHA BIRTHDATE: [birth year] LAKISHA LEAL MD CM:PNTRANS [id number] LAKISHA LEAL MD 03/22/17 0031 interface
--- NOTE | ~2017-03-16 | CON ---
[place], [place] REPORT OF CONSULTATION NAME: LAYLA ZALDIVAR UNIT #: [id number] ROOM: 421 DOCTOR: LAKISHA LEAL MD BIRTHDATE: [birth year] DOS: 03/17/2017 REASON FOR CONSULTATION: Atrial fibrillation. CLINICAL HISTORY: The patient is a 76-year-old patient who was brought from [facility] for nausea and vomiting. The history was obtained from the chart due to patient's mental status. The cardiology was consulted for atrial fibrillation. Review of systems are limited due to patient's mental status. Apparently, he was brought for nausea, vomiting, and was admitted to the hospital for further management. PAST MEDICAL HISTORY: 1. Paroxysmal atrial fibrillation. 2. Dementia. 3. Hypertension. 4. Chronic kidney disease. 5. Myocardial infarction. 6. Acid reflux. 7. Depression. 8. Coronary artery disease. PAST SURGICAL HISTORY: Hip surgery, prostatectomy. SOCIAL HISTORY: The patient does not drink or use illicit drugs. Quit smoking in 1999. ALLERGIES: THE PATIENT IS ALLERGIC TO DEPAKOTE, DONEPEZIL, METHOCARBAMOL. FAMILY HISTORY: Father at age 54 from unknown causes. Mother in her 80s from unknown cause. HOME MEDICATIONS: Reviewed. MEDICATIONS AND ALLERGIES: Reviewed. PHYSICAL EXAMINATION: VITAL SIGNS: Blood pressure 124/70, pulse 102, respiratory rate 18, weight 107 kilos, BMI 32. GENERAL: The patient is alert, comfortable, in no acute distress. HEENT: Pupils are round and equal. No jaundice. Tongue was moist. NECK: Supple, no distended neck veins, no carotid bruit. CHEST: Symmetrical, nontender. LUNGS: A few scattered rhonchi. HEART: Irregularly irregular, grade 1/6 systolic murmur. ABDOMEN: Benign, nontender, bowel sounds normal. EXTREMITIES: Showed trace edema. Right foot was in dressing. NEUROLOGIC: The patient was noncommunicative and unable to assess neurologic. RECTAL: Deferred. [place], [place] REPORT OF CONSULTATION NAME: LAYLA ZALDIVAR UNIT #: [id number] ROOM: 421 DOCTOR: LAKISHA LEAL MD BIRTHDATE: [birth year] GENITOURINARY: Deferred. REVIEW OF THE DIAGNOSTIC TESTS: EKG, imaging studies and labs reviewed. EKG showed atrial fibrillation with nonspecific ST changes. IMPRESSION: 1. Atrial fibrillation with rapid ventricular rate, currently rates are better. 2. History of hypertension. 3. History of coronary artery disease with stents, detail is unknown. 4. Dementia. RECOMMENDATIONS: 1. Continue aspirin and increase the beta fabienne 25 twice a day and monitor heart rate and blood pressures. 2. Check 2D echo for LV function and valvular function. There is no family at bedside. The patient appears to be at high risk for long-term anticoagulation at present time. We will discuss with the family regarding long-term anticoagulation. LAKISHA LEAL MD CM:CONSTR:REPORT OF CONSULTATION 1634 03/18/17 7901 interface
--- NOTE | ~2017-03-16 | EKG ---
[place], [place] ELECTROCARDIOGRAM REPORT NAME: LAYLA ZALDIVAR UNIT #: [id number] ROOM: 421 DOCTOR: MEL MCNAMARA,LAKISHA BIRTHDATE: [birth year] DOS: 03/16/2017 TIME: 2054 hours IMPRESSION: 1. Atrial fibrillation with rapid ventricular rate, 107. 2. Baseline artifacts. 3. Nonspecific ST-T changes. LAKISHA LEAL MD CM:EKGRPT:ELECTROCARDIOGRAM REPORT 1206 1232 ALKISHA LEAL MD
--- NOTE | ~2017-03-16 | PR ---
[place], [place] PROGRESS NOTE NAME: LAYLA ZALDIVAR UNIT #: [id number] ROOM: 421 DOCTOR: LAKISHA LEAL MD BIRTHDATE: [birth year] DOS: 03/19/2017 REASON FOR VISIT: Paroxysmal atrial fibrillation and nonsustained V-tach. The patient is alert, but noncommunicative, but no acute distress. REVIEW OF SYSTEMS: Review of the 8 systems negative due to patient's mental status. PHYSICAL EXAMINATION: VITAL SIGNS: Blood pressure 120/64, pulse 96, respiration was 18. GENERAL: The patient is alert, comfort, no acute distress. HEENT: Pupils are round and equal. No jaundice. Tongue was moist. NECK: Supple, no distended neck veins, no carotid bruit. CHEST: Symmetrical. LUNGS: A few scattered rhonchi. HEART: Regular rhythm, no S3. ABDOMEN: Benign, nontender. Bowel sounds normal. EXTREMITIES: Showed trace edema. Distal pulses palpable. SKIN: Warm and dry. No cyanosis, no clubbing. NEUROLOGIC: The patient is alert. Unable to assess due to his mental status and dementia. Allergies and medications reviewed. IMPRESSION: 1. Paroxysmal atrial fibrillation. 2. Nonsustained ventricular tachycardia with no recurrence. Check his magnesium levels and supplement the potassium as needed. 3. History of coronary artery disease. 4. Hypertension. RECOMMENDATIONS: 1. Continue current medications including his aspirin. 2. 2D echo is pending. 3. Watch his potassium and magnesium levels and supplement as needed. 4. Just conservative medical therapy due to his multiple comorbid conditions and his dementia. 5. There is no family at bedside at the time of my examination. [place], [place] PROGRESS NOTE NAME: LAYLA ZALDIVAR UNIT #: [id number] ROOM: 421 DOCTOR: LAKISHA LEAL MD BIRTHDATE: [birth year] LAKISHA LEAL MD CM:PNTRANS [id number] LAKISHA LEAL MD 03/19/17 1422 interface
--- NOTE | ~2017-03-16 | PROC NOTE ---
[place], [place] PROCEDURE NOTE NAME: LAYLA ZALDIVAR UNIT #: [id number] ROOM: 421 DOCTOR: SULY CANALES BIRTHDATE: [birth year] DOS: MODIFIED BARIUM SWALLOW PAST MEDICAL HISTORY: The patient is a pleasant 76-year-old male referred for modified barium swallow and bedside swallow with the past medical history of arthritis, AFib, bilateral hip fracture in which his reported he had a repair right after Thanksgiving on , which then he had increased confusion and started complaining of difficulty and having anxiety with p.o. intake with reduced p.o. intake. The patient also has current diagnoses of dementia, CKD, neuropathy. He is currently on a pureed diet with regular liquids and reports he has had significantly reduced p.o. intake but will take ice-cream inconsistently more than any other food. METHODS AND MATERIALS: The patient needed max assist. He was in a gurney, to sit him upright 90 degrees. He had reduced level of alertness, but he was talking and he was awake. Staff and his report he had been up all night. The patient was viewed in the lateral plane and this study was done in conjunction with the radiologist. The patient was not able to follow commands and he needed fed by the OFFICE AUDITOR. The patient was administered 1/4 teaspoon of ice-cream coated with barium to the anterior portion of the oral cavity after he had opened his eyes and was awake; however, he was lethargic. ORAL PHASE: The OFFICE AUDITOR touched a quarter teaspoon of ice-cream to his lips. He opened his mouth and was awake. He put it anterior to the tongue, coated with barium and he did begin to manipulate it. He began to form a bolus and he was very slow. It began to passively transfer to the posterior portion of the oral cavity in which the radiologist had determine that the patient was not alert enough and he stopped fluoroscopy at that time. So, there were no comments on oral or pharyngeal phase. RECOMMENDATIONS AND IMPRESSIONS: Immediately post stopping of fluoroscopy, the patient did continue to manipulate the bolus. He did show a pharyngeal swallow with elevation at the larynx and depression. The OFFICE AUDITOR checked his oral cavity, it was clear of any barium or ice-cream. The patient did vocalize, he had a clear vocal quality but he did cough 3 times and remained upright until his vocal was cleared and he stopped coughing. The patient then closed his eyes and continued to be quiet. OFFICE AUDITOR notified nursing and reported that the OFFICE AUDITOR is not comfortable making diet changes continue to follow the patient at bedside as he was not alert enough or cooperative enough for this modified barium swallow today. OFFICE AUDITOR will follow the patient at bedside to assess and make recommendations as necessary. Thank you for this referral. [place], [place] PROCEDURE NOTE NAME: LAYLA ZALDIVAR UNIT #: [id number] ROOM: [facility] DOCTOR: SULY CANALES BIRTHDATE: [birth year] SULY CANALES CM:PROCNOTE:PROCEDURE NOTE 1141 1311 SULY CANALES
--- NOTE | ~2017-03-16 | PR ---
[place], [place] PROGRESS NOTE NAME: LAYLA ZALDIVAR UNIT #: [id number] ROOM: 421 DOCTOR: LAKISHA LEAL MD BIRTHDATE: [birth year] DOS: 03/18/2017 REASON FOR VISIT: Coronary artery disease and atrial fibrillation. HISTORY OF PRESENT ILLNESS: The patient is alert, but noncommunicative and hence unable to obtain any review of the systems. Family is at bedside at the time of my examination. The patient is somewhat agitated when I try to remove his clothing. PHYSICAL EXAMINATION: VITAL SIGNS: Blood pressure 135/82, pulse 98, respiratory rate is 20. GENERAL: Alert, comfortable, in no acute distress. The patient is agitated. HEENT: Pupils are round and equal. Tongue was moist. NECK: Supple, no distended neck veins, no carotid bruit. CHEST: Symmetrical. LUNGS: Few scattered rhonchi. HEART: Slightly irregular. Grade 1/6 systolic murmur. ABDOMEN: Bowel sounds are normal. EXTREMITIES: Showed trace edema. Distal pulses are palpable. MEDICATIONS AND ALLERGIES: Reviewed LABORATORY DATA: Labs are reviewed as available. IMPRESSION: 1. Paroxysmal atrial fibrillation. 2. History of coronary artery disease. 3. Hypertension. 4. Chronic kidney disease. 5. Nausea and vomiting. 6. Altered mental status. RECOMMENDATIONS: His blood pressure and heart rates are stable. We will continue his metoprolol and aspirin. A 2D echo was ordered and this will be done on Saturday for evaluation of LV function and valvular function. The above treatment was discussed with the patient's family member who is at bedside and all questions were answered. No further cardiac testing except the 2D echo. [place], [place] PROGRESS NOTE NAME: LAYLA ZALDIVAR UNIT #: [id number] ROOM: 421 DOCTOR: LAKISHA LEAL MD BIRTHDATE: [birth year] LAKISHA LEAL MD CM:PNTRANS [phone] LAKISHA LEAL MD 03/18/179 interface
--- NOTE | ~2017-03-16 | CON ---
[place], [place] REPORT OF CONSULTATION NAME: LAYLA ZALDIVAR UNIT #: [id number] ROOM: 421 DOCTOR: FEDE HOOK MD BIRTHDATE: [birth year] DOS: 03/19/2017 CHIEF COMPLAINT: The patient was somnolent and difficult to arouse. HISTORY OF PRESENT ILLNESS: This is a 76-year-old white male known to me from previous admissions to the [facility], who most recently was a patient at [facility]. The patient was recently admitted there after having episodes of vomiting nonstop. However, the patient did not have any vomiting when in the ambulance or in the ER. The patient was ultimately admitted to the medical floor for altered mental status and to further evaluate his nausea and vomiting. The patient has been somewhat somnolent here and has not been overly problematic with behavior. MENTAL STATUS: Limited due to the patient's physical and mental impairment. He was very somnolent and I was only able to get him to open his eyes once despite multiple attempts at engaging him in conversation. He did not make any verbalizations. Of note, he was not agitated in any way. There was no mood lability. He does have a history of being sexually inappropriate. I saw none of this. DIAGNOSIS: Alzheimer dementia with behavioral manifestations. PLAN: At this point, his medical condition outweighs any psychiatric intervention. You have continued him on his Exelon I have noted. I would continue to do so. At this point, I do not see any rational or any reason to admit him to the [facility]. I do round at [facility] and I can certainly follow him upon his return there if behaviors persist. FEDE HOOK MD CM:CONSTR:REPORT OF CONSULTATION 1126 03/19/17 1334 interface
[2017-03-16 20:27] VITALS: BP 160/79
[~2017-03-16 20:27] MED LIST changes: +CALCIUM CARBON200 MG PO; +GABAPENTIN TAB600 MG PO; +QUETIAPINE FUM100 M1 PO; +VITAMIN D-32000 UNI1 PO
[2017-03-16] MEDS ORDERED: ATORVASTATIN CA10 M1 PO (20:56)
[2017-03-16] MEDS ORDERED: DULCOLAX10 M1 R (21:01)
[2017-03-16] MEDS ORDERED: FLEET ENEMA 13133 ML R (21:02)
[2017-03-16 21:40] LABS: BASO % 0.2 % (0.0-1.0); EOS % 0.3 % (1.0-4.0); HEMATOCRIT 34.9 % (42.0-52.0); HEMOGLOBIN 11.5 g/dl (14.0-18.0); LYMPH # 1.5 10*3/uL (1.3-4.4); LYMPH % 12.3 % (27.0-41.0); MEAN CELL VOLUME 91.6 fl (80.0-94.0); MEAN CORPUSCULAR HGB 30.2 pg (27.0-31.0); MONO # 0.7 10*3/uL (0.1-1.0); MONO % 5.6 % (3.0-9.0); NEUT % 80.9 % (47.0-73.0); PLATELET COUNT AUTOMATED 311 10*3/uL (130-400); RED BLOOD COUNT 3.81 10*6/uL (4.50-5.90); RED CELL DISTRI WIDTH 13.2 % (0-14.5); WHITE BLOOD COUNT 12.4 10*3/uL (4.8-10.8)
[2017-03-16 21:43] VITALS: BP 136/86
[2017-03-16 21:47] LABS: BILIRUBIN 1+ (NEGATIVE); BLOOD NEGATIVE (NEGATIVE); CLARITY CLEAR (CLEAR); COLOR YELLOW (YELLOW); GLUCOSE NEGATIVE (NEGATIVE); KETONE 2+ (NEGATIVE); LEUKO ESTERASE NEGATIVE (NEGATIVE); NITRITE NEGATIVE (NEGATIVE); SPECIFIC GRAVITY 1.025 (1.005-1.030)
[2017-03-16 21:50] LABS: ACT PARTIAL THROMBO TIME 23.7 SECONDS (20.8-31.5); INTERNATIONAL NORM RATIO 1.3 (2.0-3.5)
[2017-03-16 21:52] LABS: MUCOUS TRACE
[2017-03-16 21:57] LABS: ALBUMIN 2.7 gm/dl (3.1-4.5); ALKALINE PHOSPHATASE 95 U/L (45-117); BUN 15 mg/dl (7-24); CHLORIDE 103 mmol/L (98-107); CREATININE 0.93 mg/dL (0.70-1.30); LIPASE 195 U/L (73-393); POTASSIUM 4.2 mmol/L (3.5-5.1); SGOT/AST 17 IU/L (3-35); SGPT/ALT 32 U/L (12-78); SODIUM 140 mmol/L (136-145); TOTAL PROTEIN 6.8 gm/dL (6.4-8.2)
[2017-03-16 22:00] LABS: TROPONIN I < 0.015 ng/ml (<0.045)
[2017-03-16 23:01] VITALS: BP 129/72
[2017-03-16 23:17] VITALS: BP 129/72
[2017-03-16 23:30] VITALS: BP 139/86
[2017-03-16] MEDS ORDERED: PROVERA10 MG PO (23:55)
[2017-03-16] MEDS ORDERED: OMEPRAZOLE D/R20 MG PO (23:55)
[2017-03-16] MEDS ORDERED: QUETIAPINE FUM100 M1 PO (23:56)
[2017-03-16] MEDS ORDERED: TOPROL XL25 MG PO (23:57)
[2017-03-16] MEDS ORDERED: EXELON1 EAC1 T (23:57)
[2017-03-17] VITALS: BP 139/86
[2017-03-17] MEDS ORDERED: CENTRUM SILVER1 EACH PO
[2017-03-17] MEDS ORDERED: MILK OF MA400 MG/5 M PO (00:03)
[2017-03-17 06:50] LABS: BASO % 0.3 % (0.0-1.0); EOS # 0.1 10*3/uL (0.0-0.4); EOS % 1.1 % (1.0-4.0); HEMATOCRIT 31.4 % (42.0-52.0); HEMOGLOBIN 10.5 g/dl (14.0-18.0); LYMPH # 2.3 10*3/uL (1.3-4.4); LYMPH % 19.5 % (27.0-41.0); MEAN CORPUSCULAR HGB 30.4 pg (27.0-31.0); MEAN CORPUSCULAR HGB CONC 33.4 g/dl (33.0-37.0); MEAN PLATELET VOLUME 9.9 fl (9.6-12.3); MONO # 0.9 10*3/uL (0.1-1.0); MONO % 7.7 % (3.0-9.0); NEUT # 8.3 10*3/uL (2.3-7.9); NEUT % 70.9 % (47.0-73.0); PLATELET COUNT AUTOMATED 273 10*3/uL (130-400); RED BLOOD COUNT 3.45 10*6/uL (4.50-5.90); RED CELL DISTRI WIDTH 13.2 % (0-14.5); WHITE BLOOD COUNT 11.7 10*3/uL (4.8-10.8)
[2017-03-17 07:31] LABS: ACT PARTIAL THROMBO TIME 23.9 SECONDS (20.8-31.5); INTERNATIONAL NORM RATIO 1.3 (2.0-3.5)
[2017-03-17 07:44] LABS: BUN 16 mg/dl (7-24); CHLORIDE 104 mmol/L (98-107); CHOLESTEROL 98 mg/dL (<200); CREATININE 1.04 mg/dL (0.70-1.30); HDL CHOLESTEROL 39 mg/dl (40-60); LDL CHOLESTEROL 46 mg/dL (9-159); POTASSIUM 3.8 mmol/L (3.5-5.1); SODIUM 139 mmol/L (136-145); TRIGLYCERIDES 67 mg/dl (<150); VLDL CHOLESTEROL 13 mg/dL (6-40)
[2017-03-17 08:00] VITALS: BP 120/64
[2017-03-17 08:30] LABS: VITAMIN D, 25-HYDROXY 35.2 ng/mL (30-100)
[2017-03-17 12:00] VITALS: BP 124/70
[2017-03-17 16:00] VITALS: BP 128/68
[2017-03-17 20:00] VITALS: BP 128/73
[2017-03-18] VITALS: BP 147/86
[2017-03-18 06:16] LABS: BASO % 0.3 % (0.0-1.0); EOS # 0.3 10*3/uL (0.0-0.4); EOS % 2.7 % (1.0-4.0); HEMATOCRIT 30.2 % (42.0-52.0); HEMOGLOBIN 9.9 g/dl (14.0-18.0); LYMPH # 2.8 10*3/uL (1.3-4.4); LYMPH % 28.9 % (27.0-41.0); MEAN CORPUSCULAR HGB 29.8 pg (27.0-31.0); MEAN CORPUSCULAR HGB CONC 32.8 g/dl (33.0-37.0); MEAN PLATELET VOLUME 10.2 fl (9.6-12.3); MONO # 0.6 10*3/uL (0.1-1.0); MONO % 6.7 % (3.0-9.0); NEUT # 5.8 10*3/uL (2.3-7.9); NEUT % 60.8 % (47.0-73.0); PLATELET COUNT AUTOMATED 273 10*3/uL (130-400); RED BLOOD COUNT 3.32 10*6/uL (4.50-5.90); RED CELL DISTRI WIDTH 13.3 % (0-14.5); WHITE BLOOD COUNT 9.5 10*3/uL (4.8-10.8)
[2017-03-18 06:29] LABS: ALBUMIN 2.4 gm/dl (3.1-4.5); BUN 13 mg/dl (7-24); CHLORIDE 108 mmol/L (98-107); CREATININE 0.98 mg/dL (0.70-1.30); POTASSIUM 3.6 mmol/L (3.5-5.1); SGOT/AST 17 IU/L (3-35); SGPT/ALT 26 U/L (12-78); SODIUM 142 mmol/L (136-145); TOTAL PROTEIN 5.7 gm/dL (6.4-8.2)
[2017-03-18 06:30] LABS: ALKALINE PHOSPHATASE 84 U/L (45-117)
[2017-03-18 08:00] VITALS: BP 135/82
[2017-03-18 12:00] VITALS: BP 135/82
[2017-03-18 16:00] VITALS: BP 139/77
[2017-03-18 20:00] VITALS: BP 135/65
[2017-03-19] VITALS: BP 134/98; BP 176/62
[2017-03-19 06:23] LABS: BASO % 0.5 % (0.0-1.0); EOS # 0.3 10*3/uL (0.0-0.4); EOS % 3.5 % (1.0-4.0); HEMATOCRIT 28.5 % (42.0-52.0); HEMOGLOBIN 9.5 g/dl (14.0-18.0); LYMPH # 3.2 10*3/uL (1.3-4.4); MEAN CELL VOLUME 91.1 fl (80.0-94.0); MEAN CORPUSCULAR HGB 30.4 pg (27.0-31.0); MEAN CORPUSCULAR HGB CONC 33.3 g/dl (33.0-37.0); MEAN PLATELET VOLUME 9.6 fl (9.6-12.3); MONO # 0.5 10*3/uL (0.1-1.0); MONO % 6.3 % (3.0-9.0); PLATELET COUNT AUTOMATED 249 10*3/uL (130-400); RED BLOOD COUNT 3.13 10*6/uL (4.50-5.90); RED CELL DISTRI WIDTH 13.3 % (0-14.5); WHITE BLOOD COUNT 8.1 10*3/uL (4.8-10.8)
[2017-03-19 06:46] LABS: BUN 10 mg/dl (7-24); CHLORIDE 106 mmol/L (98-107); CREATININE 0.93 mg/dL (0.70-1.30); POTASSIUM 3.4 mmol/L (3.5-5.1); SODIUM 139 mmol/L (136-145)
[2017-03-19 08:00] VITALS: BP 120/64
[2017-03-19 12:00] VITALS: BP 104/52
[2017-03-19 16:00] VITALS: BP 123/76
[2017-03-19 20:00] VITALS: BP 140/84
[2017-03-20] VITALS: BP 136/76
[2017-03-20 07:00] LABS: BASO % 0.5 % (0.0-1.0); EOS # 0.3 10*3/uL (0.0-0.4); EOS % 3.8 % (1.0-4.0); HEMATOCRIT 31.4 % (42.0-52.0); HEMOGLOBIN 10.6 g/dl (14.0-18.0); LYMPH # 2.4 10*3/uL (1.3-4.4); LYMPH % 28.2 % (27.0-41.0); MEAN CELL VOLUME 92.1 fl (80.0-94.0); MEAN CORPUSCULAR HGB 31.1 pg (27.0-31.0); MEAN CORPUSCULAR HGB CONC 33.8 g/dl (33.0-37.0); MEAN PLATELET VOLUME 10.1 fl (9.6-12.3); MONO # 0.5 10*3/uL (0.1-1.0); MONO % 5.3 % (3.0-9.0); NEUT # 5.2 10*3/uL (2.3-7.9); NEUT % 61.5 % (47.0-73.0); PLATELET COUNT AUTOMATED 250 10*3/uL (130-400); RED BLOOD COUNT 3.41 10*6/uL (4.50-5.90); RED CELL DISTRI WIDTH 13.5 % (0-14.5); WHITE BLOOD COUNT 8.4 10*3/uL (4.8-10.8)
[2017-03-20 07:04] LABS: BUN 9 mg/dl (7-24); CHLORIDE 107 mmol/L (98-107); PHOSPHOROUS 2.9 mg/dL (2.5-4.9); POTASSIUM 3.8 mmol/L (3.5-5.1); SODIUM 139 mmol/L (136-145)
[2017-03-20 08:00] VITALS: BP 134/72
[2017-03-20] MEDS ORDERED: XARE20MG PO (09:55)
[2017-03-20 12:00] VITALS: BP 124/72
== END 2017-03-20 13:30 | disposition home or self-care (01) | DRG 70 ==
LOC: ED 20:27 → EDHOLD 22:06 → 4E 22:06
PROVIDERS: Internal Medicine; Internal Medicine Nephrology; Student in an Organized Health Care Education/Training Program
PROC: BD1BYZZ Fluoroscopy of Mouth/Oropharynx using Other Contrast (ICD-10-PCS; principal; 2017-03-19)
DX: G93.41 Metabolic encephalopathy (principal); E43 Unspecified severe protein-calorie malnutrition; I47.2 Ventricular tachycardia; I48.0 Paroxysmal atrial fibrillation; G62.9 Polyneuropathy, unspecified; N18.3 Chronic kidney disease, stage 3 (moderate); G30.9 Alzheimer's disease, unspecified; F02.81 Dementia in other diseases classified elsewhere, unspecified severity, with behavioral disturbance; R11.2 Nausea with vomiting, unspecified; F32.9 Major depressive disorder, single episode, unspecified; E87.6 Hypokalemia; K21.9 Gastro-esophageal reflux disease without esophagitis; I12.9 Hypertensive chronic kidney disease with stage 1 through stage 4 chronic kidney disease, or unspecified chronic kidney disease; Z51.5 Encounter for palliative care; Z66 Do not resuscitate; E03.9 Hypothyroidism, unspecified; E66.09 Other obesity due to excess calories; I25.10 Atherosclerotic heart disease of native coronary artery without angina pectoris; N39.41 Urge incontinence; M19.90 Unspecified osteoarthritis, unspecified site; Z85.46 Personal history of malignant neoplasm of prostate; I25.2 Old myocardial infarction; Z95.5 Presence of coronary angioplasty implant and graft; Z87.891 Personal history of nicotine dependence; Z88.8 Allergy status to other drugs, medicaments and biological substances; Z79.82 Long term (current) use of aspirin; Z79.899 Other long term (current) drug therapy; Z82.49 Family history of ischemic heart disease and other diseases of the circulatory system; Z68.32 Body mass index [BMI] 32.0-32.9, adult

== ENCOUNTER 2017-04-07 23:31 | Inpatient (IN) | payer MEDICARE, OTHER ==
[~2017-04-07] VITALS: Ht 182.9 cm; Wt 90.4 kg
--- NOTE | ~2017-04-07 | CON ---
[place], [place] REPORT OF CONSULTATION NAME: LAYLA ZALDIVAR UNIT #: [id number] ROOM: [place] [address] DOCTOR: FEDE HOOK MD BIRTHDATE: [birth year] DOS: 04/10/2017 CHIEF COMPLAINT: "The patient and moaned." HISTORY OF PRESENT ILLNESS: This is a 76-year-old white male known to me from a previous psychiatric admission to the [facility]. He presented to the emergency room at [facility] via EMS from [facility] due to altered mental status. The patient has a lengthy history of dementia. He was found to be minimally arousable on exam with minimal interaction. The patient was found to have AFib with a rapid ventricular response. His level of consciousness was considerably declined from the previous day. He was exhibiting possible apneic episodes and was short of breath. He was started on IV Cardizem. He was also found to be extremely hypernatremic with a sodium of 169. MENTAL STATUS: My mental status is limited due to his lack of ability to engage. did mention that he has had a rapid decline mentally and that whenever he becomes dehydrated, this has become problematic. DIAGNOSIS: Brief psychotic disorder. PLAN: I will simplify his regimen at this point going ahead and discontinue the Provera and the Nuedexta, maintain the Exelon at this point. Re-notify me in the future if you require further intervention. FEDE HOOK MD CM:CONSTR:REPORT OF CONSULTATION 1130 04/10/17 1213 interface
[~2017-04-07 23:31] MED LIST changes: +ATORVASTATIN CA10 M1 PO; +DULCOLAX10 M1 R; +EXELON1 EAC1 T; +FLEET ENEMA 13133 ML R; +MILK OF MA400 MG/5 M PO; +OMEPRAZOLE D/R20 MG PO; +XARE20MG PO
[2017-04-07 23:34] VITALS: BP 111/75
[2017-04-07 23:40] VITALS: BP 111/75
[2017-04-08] VITALS (41 sets, daily range): BP systolic 97–151; BP diastolic 63–85
[2017-04-08 00:11] LABS: BASO % 0.2 % (0.0-1.0); EOS # 0.4 10*3/uL (0.0-0.4); EOS % 2.4 % (1.0-4.0); HEMATOCRIT 49.9 % (42.0-52.0); HEMOGLOBIN 15.5 g/dl (14.0-18.0); LYMPH # 2.6 10*3/uL (1.3-4.4); LYMPH % 17.1 % (27.0-41.0); MEAN CELL VOLUME 97.1 fl (80.0-94.0); MEAN CORPUSCULAR HGB 30.2 pg (27.0-31.0); MEAN CORPUSCULAR HGB CONC 31.1 g/dl (33.0-37.0); MEAN PLATELET VOLUME 12.2 fl (9.6-12.3); MONO # 0.6 10*3/uL (0.1-1.0); MONO % 4.1 % (3.0-9.0); NEUT # 11.4 10*3/uL (2.3-7.9); NEUT % 75.7 % (47.0-73.0); NUCLEATED RED BLOOD CELL 0.1 % (0.0-0.0); PLATELET COUNT AUTOMATED 209 10*3/uL (130-400); RED BLOOD COUNT 5.14 10*6/uL (4.50-5.90); RED CELL DISTRI WIDTH 15.7 % (0-14.5)
[2017-04-08 00:22] LABS: ABG BASE EXCESS -1.4 mmol/L (-2.0-2.0); ABG O2 SATURATION 95.9 % (95-97); ARTERIAL BLOOD GAS PCO2 29.8 mmHg (35-45); ARTERIAL BLOOD GAS PH 7.46 (7.35-7.45); ARTERIAL BLOOD GAS PO2 83.1 mmHg (80-90)
[2017-04-08 00:24] LABS: INTERNATIONAL NORM RATIO 1.4 (2.0-3.5)
[2017-04-08 00:30] LABS: ALBUMIN 3.7 gm/dl (3.1-4.5); ALKALINE PHOSPHATASE 134 U/L (45-117); BUN 58 mg/dl (7-24); CREATININE 2.28 mg/dL (0.70-1.30); POTASSIUM 3.7 mmol/L (3.5-5.1); SGOT/AST 22 IU/L (3-35); SGPT/ALT 38 U/L (12-78); TOTAL PROTEIN 7.9 gm/dL (6.4-8.2)
[2017-04-08 00:32] LABS: TROPONIN I < 0.015 ng/ml (<0.045)
[2017-04-08 00:34] LABS: CHLORIDE 131 mmol/L (98-107)
[2017-04-08 00:35] LABS: SODIUM 166 mmol/L (136-145)
[2017-04-08 02:10] LABS: BILIRUBIN NEGATIVE (NEGATIVE); BLOOD 2+ (NEGATIVE); CLARITY CLOUDY (CLEAR); COLOR YELLOW (YELLOW); GLUCOSE NEGATIVE (NEGATIVE); KETONE NEGATIVE (NEGATIVE); LEUKO ESTERASE 3+ (NEGATIVE); NITRITE POSITIVE (NEGATIVE); UROBILINOGEN 0.2 E.U./dl (0.2-1.0)
[2017-04-08 02:22] LABS: BACTERIA 4+; RBC 31-40 rbc/hpf (0-2); WBC TNTC wbc/hpf (0-5)
[2017-04-08 04:36] LABS: BASO % 0.2 % (0.0-1.0); EOS # 0.3 10*3/uL (0.0-0.4); EOS % 1.8 % (1.0-4.0); HEMATOCRIT 44.7 % (42.0-52.0); HEMOGLOBIN 13.8 g/dl (14.0-18.0); LYMPH # 2.7 10*3/uL (1.3-4.4); LYMPH % 19.6 % (27.0-41.0); MEAN CELL VOLUME 98.7 fl (80.0-94.0); MEAN CORPUSCULAR HGB 30.5 pg (27.0-31.0); MEAN CORPUSCULAR HGB CONC 30.9 g/dl (33.0-37.0); MEAN PLATELET VOLUME 12.6 fl (9.6-12.3); MONO # 0.7 10*3/uL (0.1-1.0); MONO % 5.1 % (3.0-9.0); NEUT # 9.9 10*3/uL (2.3-7.9); NEUT % 72.9 % (47.0-73.0); PLATELET COUNT AUTOMATED 174 10*3/uL (130-400); RED BLOOD COUNT 4.53 10*6/uL (4.50-5.90); RED CELL DISTRI WIDTH 15.7 % (0-14.5); WHITE BLOOD COUNT 13.5 10*3/uL (4.8-10.8)
[2017-04-08 04:47] LABS: ACT PARTIAL THROMBO TIME 21.5 SECONDS (20.8-31.5); INTERNATIONAL NORM RATIO 1.5 (2.0-3.5)
[2017-04-08 04:53] LABS: CREATININE 2.05 mg/dL (0.70-1.30); POTASSIUM 3.6 mmol/L (3.5-5.1)
[2017-04-08 05:08] LABS: THYROID STIM HORMONE (HS) 1.44 uIU/ml (0.358-4.75)
[2017-04-08 07:51] LABS: VITAMIN D, 25-HYDROXY 41.4 ng/mL (30-100)
[2017-04-08] MEDS ORDERED: OYSCO 500500 M1 PO (11:07)
[2017-04-08] MEDS ORDERED: VITAMIN D-32000 UNIT PO (11:12)
[2017-04-08] MEDS ORDERED: NEURONTIN300 MG PO (11:27)
[2017-04-08] MEDS ORDERED: NEURONTIN600 MG PO (11:27)
[2017-04-08] MEDS ORDERED: NEUDEXT PO (11:33)
[2017-04-08] MEDS ORDERED: XARE20MG PO (11:38)
[2017-04-08 16:46] LABS: POTASSIUM 4.9 mmol/L (3.5-5.1)
[2017-04-09] VITALS (14 sets, daily range): BP systolic 94–114; BP diastolic 59–75
[2017-04-09 06:00] LABS: ALBUMIN 2.8 gm/dl (3.1-4.5); CREATININE 1.87 mg/dL (0.70-1.30); PHOSPHOROUS 2.4 mg/dL (2.5-4.9); TOTAL PROTEIN 6.2 gm/dL (6.4-8.2)
[2017-04-09 06:02] LABS: POTASSIUM 3.3 mmol/L (3.5-5.1)
[2017-04-09 06:05] LABS: BASO % 0.2 % (0.0-1.0); EOS # 0.3 10*3/uL (0.0-0.4); EOS % 1.9 % (1.0-4.0); HEMATOCRIT 41.4 % (42.0-52.0); HEMOGLOBIN 12.7 g/dl (14.0-18.0); LYMPH # 2.5 10*3/uL (1.3-4.4); LYMPH % 17.7 % (27.0-41.0); MEAN CELL VOLUME 98.8 fl (80.0-94.0); MEAN CORPUSCULAR HGB 30.3 pg (27.0-31.0); MEAN CORPUSCULAR HGB CONC 30.7 g/dl (33.0-37.0); MEAN PLATELET VOLUME 12.7 fl (9.6-12.3); MONO # 0.7 10*3/uL (0.1-1.0); MONO % 4.5 % (3.0-9.0); NEUT # 10.7 10*3/uL (2.3-7.9); NEUT % 74.8 % (47.0-73.0); NUCLEATED RED BLOOD CELL 0.2 % (0.0-0.0); PLATELET COUNT AUTOMATED 150 10*3/uL (130-400); RED BLOOD COUNT 4.19 10*6/uL (4.50-5.90); RED CELL DISTRI WIDTH 15.7 % (0-14.5); WHITE BLOOD COUNT 14.3 10*3/uL (4.8-10.8)
[2017-04-09] MEDS ORDERED: SEROQUEL100 MG PO (16:18)
[2017-04-10] VITALS: BP 118/70
[2017-04-10 03:40] VITALS: BP 133/74
[2017-04-10 06:01] LABS: ALBUMIN 2.4 gm/dl (3.1-4.5); ALKALINE PHOSPHATASE 94 U/L (45-117); CHLORIDE 122 mmol/L (98-107); CREATININE 1.32 mg/dL (0.70-1.30); PHOSPHOROUS 1.8 mg/dL (2.5-4.9); POTASSIUM 3.3 mmol/L (3.5-5.1); SGOT/AST 29 IU/L (3-35); SGPT/ALT 23 U/L (12-78); SODIUM 153 mmol/L (136-145); TOTAL PROTEIN 5.6 gm/dL (6.4-8.2)
[2017-04-10 06:09] LABS: BUN 26 mg/dl (7-24)
[2017-04-10 06:25] LABS: BASO % 0.2 % (0.0-1.0); EOS # 0.6 10*3/uL (0.0-0.4); EOS % 5.3 % (1.0-4.0); HEMOGLOBIN 11.3 g/dl (14.0-18.0); LYMPH # 2.6 10*3/uL (1.3-4.4); LYMPH % 21.7 % (27.0-41.0); MEAN CORPUSCULAR HGB 30.1 pg (27.0-31.0); MEAN CORPUSCULAR HGB CONC 31.4 g/dl (33.0-37.0); MEAN PLATELET VOLUME 12.8 fl (9.6-12.3); MONO # 0.5 10*3/uL (0.1-1.0); NEUT # 8.1 10*3/uL (2.3-7.9); NEUT % 66.8 % (47.0-73.0); PLATELET COUNT AUTOMATED 122 10*3/uL (130-400); RED BLOOD COUNT 3.75 10*6/uL (4.50-5.90); RED CELL DISTRI WIDTH 15.1 % (0-14.5); WHITE BLOOD COUNT 12.1 10*3/uL (4.8-10.8)
[2017-04-10 08:00] VITALS: BP 122/78
[2017-04-10 12:00] VITALS: BP 125/79
[2017-04-10 16:00] VITALS: BP 114/73
[2017-04-10 20:00] VITALS: BP 103/79
[2017-04-11] VITALS: BP 103/65
[2017-04-11 03:48] VITALS: BP 102/73
[2017-04-11 06:12] LABS: BASO % 0.4 % (0.0-1.0); EOS # 0.5 10*3/uL (0.0-0.4); EOS % 6.1 % (1.0-4.0); HEMATOCRIT 33.3 % (42.0-52.0); HEMOGLOBIN 10.7 g/dl (14.0-18.0); LYMPH # 2.2 10*3/uL (1.3-4.4); LYMPH % 28.6 % (27.0-41.0); MEAN CELL VOLUME 95.4 fl (80.0-94.0); MEAN CORPUSCULAR HGB 30.7 pg (27.0-31.0); MEAN CORPUSCULAR HGB CONC 32.1 g/dl (33.0-37.0); MEAN PLATELET VOLUME 12.2 fl (9.6-12.3); MONO # 0.4 10*3/uL (0.1-1.0); MONO % 4.6 % (3.0-9.0); NEUT # 4.5 10*3/uL (2.3-7.9); NEUT % 57.4 % (47.0-73.0); PLATELET COUNT AUTOMATED 97 10*3/uL (130-400); RED BLOOD COUNT 3.49 10*6/uL (4.50-5.90); RED CELL DISTRI WIDTH 14.9 % (0-14.5); WHITE BLOOD COUNT 7.8 10*3/uL (4.8-10.8)
[2017-04-11 06:14] LABS: CHLORIDE 119 mmol/L (98-107); CREATININE 1.08 mg/dL (0.70-1.30); POTASSIUM 3.8 mmol/L (3.5-5.1); SODIUM 149 mmol/L (136-145)
[2017-04-11 06:23] LABS: BUN 15 mg/dl (7-24)
[2017-04-11 08:00] VITALS: BP 107/78
[2017-04-11 12:00] VITALS: BP 105/64
[2017-04-11 16:00] VITALS: BP 95/62
[2017-04-11 19:58] VITALS: BP 99/62
[2017-04-12] VITALS: BP 138/77
[2017-04-12 03:55] VITALS: BP 97/64
[2017-04-12 05:47] LABS: BASO % 0.6 % (0.0-1.0); EOS # 0.2 10*3/uL (0.0-0.4); EOS % 3.7 % (1.0-4.0); HEMOGLOBIN 11.6 g/dl (14.0-18.0); LYMPH # 1.8 10*3/uL (1.3-4.4); LYMPH % 27.8 % (27.0-41.0); MEAN CELL VOLUME 92.8 fl (80.0-94.0); MEAN CORPUSCULAR HGB 30.8 pg (27.0-31.0); MEAN CORPUSCULAR HGB CONC 33.1 g/dl (33.0-37.0); MEAN PLATELET VOLUME 12.1 fl (9.6-12.3); MONO # 0.4 10*3/uL (0.1-1.0); MONO % 5.5 % (3.0-9.0); NEUT % 60.3 % (47.0-73.0); PLATELET COUNT AUTOMATED 97 10*3/uL (130-400); RED BLOOD COUNT 3.77 10*6/uL (4.50-5.90); RED CELL DISTRI WIDTH 14.5 % (0-14.5); WHITE BLOOD COUNT 6.6 10*3/uL (4.8-10.8)
[2017-04-12 05:53] LABS: BUN 13 mg/dl (7-24); CHLORIDE 116 mmol/L (98-107); CREATININE 1.08 mg/dL (0.70-1.30); POTASSIUM 3.4 mmol/L (3.5-5.1); SODIUM 143 mmol/L (136-145)
[2017-04-12 05:54] LABS: PHOSPHOROUS 2.1 mg/dL (2.5-4.9)
[2017-04-12 08:00] VITALS: BP 100/66
== END 2017-04-12 11:33 | disposition other institution (70) | DRG 871 ==
LOC: ED 23:31 → ICCU 04-08 01:30 → EDHOLD 04-08 01:30 → ICCU 04-08 09:11
PROVIDERS: Emergency Medicine; Emergency Medicine Emergency Medical Services; Internal Medicine; Internal Medicine Hospice and Palliative Medicine; Internal Medicine Nephrology
DX: A41.9 Sepsis, unspecified organism (principal); G93.41 Metabolic encephalopathy; N17.0 Acute kidney failure with tubular necrosis; E87.0 Hyperosmolality and hypernatremia; E67.8 Other specified hyperalimentation; I48.2 Chronic atrial fibrillation; G62.9 Polyneuropathy, unspecified; E83.39 Other disorders of phosphorus metabolism; E83.41 Hypermagnesemia; E77.8 Other disorders of glycoprotein metabolism; E87.2 Acidosis; N39.0 Urinary tract infection, site not specified; F23 Brief psychotic disorder; F03.91 Unspecified dementia, unspecified severity, with behavioral disturbance; N18.3 Chronic kidney disease, stage 3 (moderate); E87.8 Other disorders of electrolyte and fluid balance, not elsewhere classified; I48.91 Unspecified atrial fibrillation; D53.9 Nutritional anemia, unspecified; R31.9 Hematuria, unspecified; F32.9 Major depressive disorder, single episode, unspecified; K21.9 Gastro-esophageal reflux disease without esophagitis; E03.9 Hypothyroidism, unspecified; R65.20 Severe sepsis without septic shock; I12.9 Hypertensive chronic kidney disease with stage 1 through stage 4 chronic kidney disease, or unspecified chronic kidney disease; I25.10 Atherosclerotic heart disease of native coronary artery without angina pectoris; E78.5 Hyperlipidemia, unspecified; G47.33 Obstructive sleep apnea (adult) (pediatric); M19.90 Unspecified osteoarthritis, unspecified site; R73.9 Hyperglycemia, unspecified; R73.03 Prediabetes; D72.810 Lymphocytopenia; N39.41 Urge incontinence; E87.6 Hypokalemia; E66.09 Other obesity due to excess calories; Z51.5 Encounter for palliative care; Z66 Do not resuscitate; Z87.81 Personal history of (healed) traumatic fracture; Z87.890 Personal history of sex reassignment; Z79.82 Long term (current) use of aspirin; Z98.61 Coronary angioplasty status; Z85.46 Personal history of malignant neoplasm of prostate; Z87.891 Personal history of nicotine dependence; I25.2 Old myocardial infarction; Z79.899 Other long term (current) drug therapy; Z68.29 Body mass index [BMI] 29.0-29.9, adult

== ENCOUNTER 2017-04-12 11:49 | Inpatient (IN) | payer OTHER, MEDICARE ==
[~2017-04-12] VITALS: Ht 182.9 cm; Wt 90.3 kg
[~2017-04-12 11:49] MED LIST changes: +NEUDEXT PO; +NEURONTIN600 MG PO; +OYSCO 500500 M1 PO; +SEROQUEL100 MG PO; +VITAMIN D-32000 UNIT PO
[2017-04-12 12:00] VITALS: BP 90/60
[2017-04-12 16:00] VITALS: BP 107/70
[2017-04-12 20:00] VITALS: BP 108/56
[2017-04-13] VITALS: BP 135/88
[2017-04-13 08:00] VITALS: BP 112/74
[2017-04-13 12:00] VITALS: BP 120/75
[2017-04-13 20:00] VITALS: BP 112/72
[2017-04-14] VITALS: BP 124/67
[2017-04-14 16:00] VITALS: BP 96/61
[2017-04-14 20:00] VITALS: BP 101/63
[2017-04-15 08:00] VITALS: BP 122/74
[2017-04-15 12:00] VITALS: BP 135/80
[2017-04-15 20:42] VITALS: BP 112/74
[2017-04-16] VITALS: BP 105/60
[2017-04-16 08:00] VITALS: BP 98/57
[2017-04-16 12:00] VITALS: BP 112/59
[2017-04-16 16:57] VITALS: BP 93/55
[2017-04-16 20:18] VITALS: BP 102/58
[2017-04-17] VITALS: BP 94/57
[2017-04-17 08:00] VITALS: BP 102/62
[2017-04-17 12:00] VITALS: BP 89/58
[2017-04-17 15:52] VITALS: BP 96/56
[2017-04-17 20:00] VITALS: BP 100/58
[2017-04-18] VITALS: BP 109/54
[2017-04-18 04:00] VITALS: BP 90/54
[2017-04-18 08:00] VITALS: BP 94/54
[2017-04-18 12:00] VITALS: BP 99/67
[2017-04-18 16:00] VITALS: BP 93/63
[2017-04-18 20:00] VITALS: BP 96/55
[2017-04-19] VITALS: BP 98/48
[2017-04-19 08:00] VITALS: BP 97/57
[2017-04-19 12:00] VITALS: BP 94/45
[2017-04-19 16:00] VITALS: BP 98/50
[2017-04-19 20:00] VITALS: BP 97/53
[2017-04-20] VITALS: BP 94/57
[2017-04-20 08:00] VITALS: BP 85/53
[2017-04-20 12:00] VITALS: BP 87/59
[2017-04-20 16:00] VITALS: BP 91/63
[2017-04-20 20:00] VITALS: BP 75/55
[2017-04-21] VITALS: BP 79/58
== END 2017-04-21 05:41 | disposition expired | DRG 871 ==
LOC: 4E 11:49 → ICCU 11:49 → 4E 13:42
DX: A41.9 Sepsis, unspecified organism (principal); G93.41 Metabolic encephalopathy; E87.0 Hyperosmolality and hypernatremia; F03.91 Unspecified dementia, unspecified severity, with behavioral disturbance; N39.0 Urinary tract infection, site not specified; E86.0 Dehydration; G62.9 Polyneuropathy, unspecified; E03.9 Hypothyroidism, unspecified; E66.8 Other obesity; F32.9 Major depressive disorder, single episode, unspecified; I12.9 Hypertensive chronic kidney disease with stage 1 through stage 4 chronic kidney disease, or unspecified chronic kidney disease; K21.9 Gastro-esophageal reflux disease without esophagitis; M19.90 Unspecified osteoarthritis, unspecified site; N18.3 Chronic kidney disease, stage 3 (moderate); Z51.5 Encounter for palliative care; R65.20 Severe sepsis without septic shock; Z85.46 Personal history of malignant neoplasm of prostate; Z90.79 Acquired absence of other genital organ(s); I25.2 Old myocardial infarction; Z87.891 Personal history of nicotine dependence; Z88.8 Allergy status to other drugs, medicaments and biological substances; Z79.899 Other long term (current) drug therapy; Z68.29 Body mass index [BMI] 29.0-29.9, adult